=== PATIENT | female | born 1965 | race Caucasian/White ===

== ENCOUNTER 2020-10-16 16:38 | Emergency (ER) | payer BC, SELFPAY ==
--- NOTE | 2020-10-16 16:51 | HMH.EDUTC ---
[facility] [place] Disposition Clinical Impression: Exposure to COVID-19 virus Disposition: Home, Self-Care Condition on Discharge: Good Instructions: Preventing the Spread of Coronavirus Discharge Instructions Additional Instructions: Drink plenty of fluids. Take tylenol for pain or fever. Return if you begin to have difficulty breathing. Follow up with your regular doctor. GO TO THE ER FOR ANY WORSENING SYMPTOMS Referrals: Jeffrey Haney MD [Primary Care Provider] - Forms: Work/School Release Time of Disposition: 16:53 Medical Decision Making - Medical Records Medical records reviewed: No: I reviewed the patient's medical records. - Davis Inquiry Pt receiving controlled substance: No Vital Signs: 10/16/20 17:05 10/16/20 17:09 Temperature 98.7 F 98.5 F Temperature Source Oral Oral Pulse Rate 110 H Respiratory Rate 16 16 Blood Pressure 141/92 H 02 Sat by Pulse Oximetry 98 Oxygen Delivery Method Room Air Room Air [facility] [place] HPI - General Stated complaint: Covid Test Time Seen by Provider: 10/16/20 16:51 - History of Present Illness Provider Complaint: She is here to have a covid test. She denies any symptoms at this time. [facility] History - Hepatitis A Screen Attestation statement:: This patient has been screened for Hepatitis A risk factors. I have reviewed the patient's past medical history: Yes ROS Obtained: Yes All systems reviewed & no additional complaints - Constitutional Constitutional: Reports system reviewed and no additional complaints, except as docu - Eyes Eyes: Reports system reviewed and no additional complaints, except as docu - ENT Ears, Nose, Mouth, and Throat: Reports system reviewed and no additional complaints, except as docu - Cardiovascular Cardiovascular: Reports system reviewed and no additional complaints, except as docu - Respiratory Respiratory: Reports system reviewed and no additional complaints, except as docu - Gastrointestinal Gastrointestingal: Reports: system reviewed and no additional complaints, except as docu Physical Exam - General General appearance: alert, in no apparent distress - Head Head exam: atraumatic, normocephalic, normal inspection - Eye Eye exam: Present: normal appearance, PERRL, EOMI - ENT ENT exam: Present: normal exam, normal oropharynx, mucous membranes moist, TM's normal bilaterally, normal external ear exam - Neck Neck exam: Present: normal inspection, full ROM, trachea midline. Absent: meningismus, lymphadenopathy - Chest Chest inspection: Present: normal inspection, symmetric chest wall rise. Absent: tenderness - Respiratory Respiratory exam: Present: normal lung sounds bilaterally. Absent: respiratory distress - Cardiovascular Cardiovascular exam: Present: regular rate, normal rhythm. Absent: JVD - Abdominal Exam Abdominal exam: Present: soft, normal bowel sounds. Absent: distention, tenderness, guarding - Extremities Exam Extremities exam: Present: normal inspection, full ROM, normal capillary refill. Absent: calf tenderness - Back Exam Back exam: Present: normal inspection. Absent: tenderness - Neurological Exam Neurological exam: Present: alert, oriented X3 - Psychiatric Psychiatric exam: Present: normal affect, normal mood - Skin Skin exam: Present: warm, dry, intact, normal color - Lymphatic Lymphatic Findings: no adenopathy
[2020-10-16 17:05] VITALS: RESP 16; TEMP 37.1; O2SAT 98; BMI 29.0
[2020-10-16 17:09] VITALS: BP 141/92; PULSE 110; RESP 16; TEMP 36.9; O2SAT 97
== END 2020-10-16 17:10 | disposition home or self-care (01) ==
PROVIDERS: Emergency Provider Nurse Practitioner Family; PCP Internal Medicine Adolescent Medicine
DX: Z20.822 Contact with and (suspected) exposure to COVID-19 (principal)
CPT/HCPCS: 99202; G0463; U0003

== ENCOUNTER 2020-10-24 15:31 | Emergency (ER) | payer BC, SELFPAY ==
[2020-10-24 15:51] VITALS: RESP 16; TEMP 36.7; O2SAT 97; BMI 29.0
--- NOTE | 2020-10-24 16:03 | HMH.EDUTC ---
[facility] [place] Clinical Impression: Exposure to COVID-19 virus Disposition: Home, Self-Care Condition on Discharge: Good Instructions: Preventing the Spread of Coronavirus Discharge Instructions Additional Instructions: Drink plenty of fluids. Take tylenol for pain or fever. Return if you begin to have difficulty breathing. Follow up with your regular doctor. GO TO THE ER FOR ANY WORSENING SYMPTOMS Referrals: Jeffrey Haney MD [Primary Care Provider] - Time of Disposition: 16:06 Medical Decision Making - Medical Records Medical records reviewed: No: I reviewed the patient's medical records. - Davis Inquiry Pt receiving controlled substance: No Vital Signs: 10/24/20 15:51 10/24/20 16:11 Temperature 98.0 F 98.1 F Temperature Source Oral Oral Pulse Rate 88 Respiratory Rate 16 16 Blood Pressure 128/90 02 Sat by Pulse Oximetry 97 Oxygen Delivery Method Room Air Room Air [facility] [place] HPI - General Stated complaint: covid test Time Seen by Provider: 10/24/20 16:04 Mode of Arrival: Ambulatory Source of Information: Patient Limitations: No Limitations Description of Symptoms (Recalled from Triage Doc. by RN): covid test-- no s/s HEENT Symptoms (Recalled from RN notes): No Resp Symptoms (Recalled from RN notes): No Skin Symptoms (Recalled from RN notes): No MS Symptoms (Recalled from RN notes): No Functional Status (Recalled from RN notes): na - History of Present Illness Provider Complaint: Her daughter was diagnosed with covid-19 last week. Her daughter lives with her. She denies any symptoms. She needs a negative test to be allowed to go back to work. - Worker's Comp Is this a Worker's Comp case?: No [facility] History - Hepatitis A Screen Drug use history?: No High risk sexual behaviors?: No History of sexually transmitted infection?: No Currently employed?: No Childcare worker?: No Do you have indoor plumbing?: Yes Do you have electricity?: Yes Attestation statement:: This patient has been screened for Hepatitis A risk factors. I have reviewed the patient's past medical history: Yes ROS Obtained: Yes All systems reviewed & no additional complaints - Constitutional Constitutional: Reports system reviewed and no additional complaints, except as docu - Eyes Eyes: Reports system reviewed and no additional complaints, except as docu - ENT Ears, Nose, Mouth, and Throat: Reports system reviewed and no additional complaints, except as docu - Cardiovascular Cardiovascular: Reports system reviewed and no additional complaints, except as docu - Respiratory Respiratory: Reports system reviewed and no additional complaints, except as docu - Gastrointestinal Gastrointestingal: Reports: system reviewed and no additional complaints, except as docu Physical Exam - General General appearance: alert, in no apparent distress - Head Head exam: atraumatic, normocephalic, normal inspection - Eye Eye exam: Present: normal appearance, PERRL, EOMI - ENT ENT exam: Present: normal exam, normal oropharynx, mucous membranes moist, TM's normal bilaterally, normal external ear exam - Neck Neck exam: Present: normal inspection, full ROM, trachea midline. Absent: meningismus, lymphadenopathy - Chest Chest inspection: Present: normal inspection, symmetric chest wall rise. Absent: tenderness - Respiratory Respiratory exam: Present: normal lung sounds bilaterally. Absent: respiratory distress - Cardiovascular Cardiovascular exam: Present: regular rate, normal rhythm. Absent: JVD - Abdominal Exam Abdominal exam: Present: soft, normal bowel sounds. Absent: distention, tenderness, guarding - Extremities Exam Extremities exam: Present: normal inspection, full ROM, normal capillary refill. Absent: calf tenderness - Back Exam Back exam: Present: normal inspection. Absent: tenderness - Neurological Exam Neurological exam: Present: alert, oriented X3 - Psychiatric Psychia
[2020-10-24 16:11] VITALS: BP 128/90; PULSE 88; RESP 16; TEMP 36.7; O2SAT 99
== END 2020-10-24 16:13 | disposition home or self-care (01) ==
PROVIDERS: Emergency Provider Nurse Practitioner Family; PCP Internal Medicine Adolescent Medicine
DX: Z20.822 Contact with and (suspected) exposure to COVID-19 (principal)
CPT/HCPCS: 99202; G0463; U0003

== ENCOUNTER 2021-03-01 09:10 | Emergency (ER) | payer BC, SELFPAY ==
[2021-03-01 09:57] VITALS: BP 146/98; PULSE 74; RESP 18; TEMP 36.6; O2SAT 98; BMI 31.7
--- NOTE | 2021-03-01 10:03 | HMH.EDUTC ---
[facility] [place]ression: Encounter for laboratory testing for COVID-19 virus Disposition: Home, Self-Care Condition on Discharge: Good Instructions: DI for COVID-19 (Suspected or Confirmed ), Coronavirus Disease 2019, Preventing the Spread of Coronavirus Discharge Instructions Additional Instructions: *Monitor Temp, Over the counter Motrin or Tylenol as directed/as needed Tylenol every 4 hours and Motrin every 6 hours (as long as your family doctor has told you that you can take it) for fever or pain. and straight to ER if unable to lower temp less than 101.0 after medication given Follow up IMMEDIATELY for new or worsening symptoms or no Noticeable improvement over the next 48-72 hours. 911 for difficulty breathing or swallowing You were tested for today for COVID19 your test result should be back in the next 24-48 hours, you may call to the [facility] to see if your test results are back in the next 48 hours [phone] [facility] hours are 9am-9pm You was given a handout with instructions for Self Quarantine and Self isolation for while you wait on test results and what to do if they are positive If you are positive the Health Dept will be contacting you also Make sure to take your Vitamins Vit. C Vit D and Zinc if you can take them Referrals: Jeffrey Haney MD [Primary Care Provider] - As needed Forms: Work/School Release Time of Disposition: 10:06 Medical Decision Making - Davis Inquiry Pt receiving controlled substance: No Davis was queried for this patient: No Vital Signs: 03/01/21 09:57 Temperature 97.8 F Temperature Source Oral Pulse Rate [Left] 74 Respiratory Rate 18 Blood Pressure [Right Arm] 146/98 H Blood Pressure Mean [Right Arm] 114 02 Sat by Pulse Oximetry 98 Orders (Tests/Meds): ORDERS Category Date Time Status Covid-19 Nasal PCR ([facility]) Routine Lab 03/01/21 09:42 [place] [facility] [place] - General Stated complaint: covid test Time Seen by Provider: 03/01/21 10:03 Mode of Arrival: Ambulatory Source of Information: Patient Limitations: No Limitations Description of Symptoms (Recalled from Triage Doc. by RN): pt requests a covid test. pt is asymptomatic. no exposure. HEENT Symptoms (Recalled from RN notes): No Resp Symptoms (Recalled from RN notes): No Skin Symptoms (Recalled from RN notes): No MS Symptoms (Recalled from RN notes): No Functional Status (Recalled from RN notes): na - History of Present Illness Provider Complaint: Patient state that she hasnt been around anyone that she is aware of that tested positive for COVID States that her daughter is having some symptoms that is like COVID symptoms and has been exposed so she wanted to get tested because she is caring for her daughter - Related Data Allergies Allergy/AdvReac Type Severity Reaction Status Date / Time Penicillins Allergy Verified 03/01/21 10:00 - Worker's Comp Is this a Worker's Comp case?: No [facility] History - Hepatitis A Screen Drug use history?: No High risk sexual behaviors?: No History of sexually transmitted infection?: No Currently employed?: No Childcare worker?: No Do you have indoor plumbing?: Yes Do you have electricity?: Yes Attestation statement:: This patient has been screened for Hepatitis A risk factors. I have reviewed the patient's past medical history: Yes ROS Obtained: Yes All systems reviewed & no additional complaints, Yes Systems reviewed as appropriate & no additional complaints - Constitutional Constitutional: Reports system reviewed and no additional complaints, except as docu, Denies body ache, Denies chills, Denies fever(s) - ENT Ears, Nose, Mouth, and Throat: Reports system reviewed and no additional complaints, except as docu, Denies nasal congestion, Denies nasal discharge, Denies sore throat - Cardiovascular Cardiovascular: Reports system reviewed and no additional complaints, except as docu - Respiratory Respiratory: Reports system reviewed and no vivian
[2021-03-01 10:08] VITALS: BP 146/98; PULSE 74; RESP 18; TEMP 36.6
== END 2021-03-01 10:26 | disposition home or self-care (01) ==
PROVIDERS: Emergency Provider Nurse Practitioner; PCP Internal Medicine Adolescent Medicine
DX: Z20.822 Contact with and (suspected) exposure to COVID-19 (principal)
CPT/HCPCS: 99202; G0463; U0003

== ENCOUNTER → 2022-02-01 19:04 | Outpatient (CLI) | payer BC, SELFPAY | PROVIDERS: PCP Internal Medicine Adolescent Medicine; Visit Provider Internal Medicine Adolescent Medicine | DX: U07.1 COVID-19 (principal) | CPT/HCPCS: C9803; U0003; U0005 ==

== ENCOUNTER → 2022-02-02 06:20 | Outpatient (CLI) | payer BC, SELFPAY | PROVIDERS: PCP Internal Medicine Adolescent Medicine; Visit Provider Internal Medicine Adolescent Medicine | DX: U07.1 COVID-19 (principal) ==

== ENCOUNTER → 2023-01-03 08:03 | Outpatient (CLI) | payer BC, SELFPAY ==
--- NOTE | 2023-01-03 08:03 | MM_ITS ---
PROCEDURE INFORMATION: Exam: MG Bilateral Screening 3D Mammography Exam date and time: 01/03/2023 8:13 AM Age: 57 years old Clinical indication: Screening examination TECHNIQUE: Imaging protocol: Bilateral Screening tomosynthesis and 2D mammography including computer-aided detection (CAD) when performed. COMPARISON: No relevant prior studies available. FINDINGS: MAMMOGRAPHY: Breast composition: There are scattered areas of fibroglandular density. Mass: None. Architectural distortion: None. Calcifications: No suspicious calcifications. Asymmetric density: None. Skin thickening: None. Axillary adenopathy: None. IMPRESSION: No mammographic evidence of malignancy. Annual screening is recommended unless otherwise clinically indicated. ASSESSMENT: BI-RADS Category 1: Negative
== END ==
PROVIDERS: PCP Nurse Practitioner Family; Visit Provider Nurse Practitioner Family
DX: Z12.31 Encounter for screening mammogram for malignant neoplasm of breast (principal)
CPT/HCPCS: 77063; 77067

== ENCOUNTER → 2023-02-19 06:55 | Outpatient (CLI) | payer BC, SELFPAY ==
[2023-02-19 07:17] LABS: Basophils # 0.1 K/mm3 (0-0.2); Basophils % 0.6 % (0.1-2.0); Eosinophils # 0.3 K/mm3 (0.0-0.4); Eosinophils % 3.6 % (0.1-12.0); Hematocrit 46.5 % (37.0-47.0); Hemoglobin 15.6 g/dL (12.2-16.2); Lymphocytes # 2.5 K/mm3 (0.7-4.5); Lymphocytes % 32.8 % (10-50); Mean Corpuscular HGB Conc 33.5 g/dL (31.8-35.4); Mean Corpuscular Hemoglobin 31.1 pg (27.0-31.2); Mean Corpuscular Volume 93.1 fl (81-99); Monocytes # 0.4 K/mm3 (0.1-1.0); Monocytes % 5.5 % (1.7-9.3); Neutrophils # 4.4 K/mm3 (1.8-7.8); Neutrophils % 57.5 % (37.0-80.0); Platelet Count 181 K/mm3 (142-424); Red Cell Distribution Width 12.7 % (11.5-17.5); White Blood Count 7.7 K/mm3 (4.8-10.8)
[2023-02-19 07:45] LABS: Alanine Aminotransferase 72 U/L (12-78); Albumin Level 4.3 g/dl (3.5-5.0); Albumin/Globulin Ratio 1.5 (1.1-1.8); Alkaline Phosphatase 79 U/L (38-126); Aspartate Amino Transferase 55 U/L (14-36); Bilirubin,Total 0.7 mg/dl (0.2-1.3); Blood Urea Nitrogen 9 mg/dl (7-17); Calcium 9.1 mg/dl (8.4-10.2); Carbon Dioxide 33 mmol/L (22.0-30.0); Chloride 101 mmol/L (98-107); Estimated Glomerular Filt Rate 127 ml/min (>60); GFR (African American) 154 ML/MIN (>60); Globulin 2.9 g/dL (1.3-3.2); Glucose 167 mg/dl (74-100); Sodium 140 mmol/L (136-145); Total Protein,Serum 7.2 g/dl (6.3-8.2)
[2023-02-19 08:02] LABS: HCG,Quantitative 5 mIU/ml (0-5.42)
[2023-02-19 12:00] LABS: Hemoglobin A1C 10.2 % (4.0-6.0)
== END ==
PROVIDERS: Family Medicine; PCP Nurse Practitioner Family; Visit Provider Obstetrics & Gynecology
DX: H68.001 Unspecified Eustachian salpingitis, right ear (principal); N95.1 Menopausal and female climacteric states; R73.09 Other abnormal glucose
CPT/HCPCS: 36415; 80053; 83036; 84702; 85025

== ENCOUNTER → 2023-02-20 12:35 | Outpatient (CLI) | payer BC, SELFPAY ==
--- NOTE | 2023-02-20 12:35 | CT_ITS ---
FINAL REPORT TECHNIQUE: Thin section axial CT images with coronal and sagittal reformats were performed through the neck. This study was performed with techniques to keep radiation doses as low as reasonably achievable (ALARA). Individualized dose reduction techniques using automated exposure control or adjustment of mA and/or kV according to the patient''s size were employed. CLINICAL HISTORY: hoarseness COMPARISON: None FINDINGS: There are small calcifications in the tonsillar pillars, likely postinflammatory. No adenopathy or mass lesion is present . Salivary glands are normal. Larynx is unremarkable. Thyroid gland is unremarkable. There are multiple small central disc protrusions at various levels in the cervical spine. IMPRESSION: No acute process. Multiple small central disc protrusions at various levels in the cervical spine. If clinically indicated a C-spine MRI might be helpful for further evaluation. Reviewed, Interpreted and Dictated by Ganesh Martin III, MD Transcribed by Analia Miranda Authenticated and [facility]
== END ==
PROVIDERS: PCP Nurse Practitioner Family; Visit Provider Nurse Practitioner
DX: R49.0 Dysphonia (principal)
CPT/HCPCS: 70490

== ENCOUNTER → 2023-02-25 16:53 | Outpatient (CLI) | payer BC, SELFPAY ==
[2023-02-25 16:57] LABS: Basophils # 0.1 K/mm3 (0-0.2); Basophils % 0.7 % (0.1-2.0); Eosinophils # 0.2 K/mm3 (0.0-0.4); Eosinophils % 2.1 % (0.1-12.0); Hematocrit 45.3 % (37.0-47.0); Hemoglobin 15.6 g/dL (12.2-16.2); Lymphocytes # 2.5 K/mm3 (0.7-4.5); Lymphocytes % 28.4 % (10-50); Mean Corpuscular HGB Conc 34.5 g/dL (31.8-35.4); Mean Corpuscular Hemoglobin 32.5 pg (27.0-31.2); Mean Corpuscular Volume 94.2 fl (81-99); Mean Platelet Volume 11.1 fl (7.4-10.4); Monocytes # 0.4 K/mm3 (0.1-1.0); Neutrophils # 5.7 K/mm3 (1.8-7.8); Neutrophils % 63.8 % (37.0-80.0); Platelet Count 191 K/mm3 (142-424); Red Blood Count 4.81 M/mm3 (4.20-5.40); Red Cell Distribution Width 12.8 % (11.5-17.5); White Blood Count 8.9 K/mm3 (4.8-10.8)
[2023-02-25 16:59] LABS: Alanine Aminotransferase 70 U/L (12-78); Albumin Level 4.4 g/dl (3.5-5.0); Albumin/Globulin Ratio 1.4 (1.1-1.8); Alkaline Phosphatase 86 U/L (38-126); Aspartate Amino Transferase 48 U/L (14-36); Bilirubin,Total 0.4 mg/dl (0.2-1.3); Blood Urea Nitrogen 9 mg/dl (7-17); Calcium 9.5 mg/dl (8.4-10.2); Carbon Dioxide 30 mmol/L (22.0-30.0); Chloride 100 mmol/L (98-107); Estimated Glomerular Filt Rate 127 ml/min (>60); GFR (African American) 154 ML/MIN (>60); Globulin 3.1 g/dL (1.3-3.2); Glucose 212 mg/dl (74-100); Sodium 139 mmol/L (136-145); Total Protein,Serum 7.5 g/dl (6.3-8.2)
[2023-02-25 17:15] LABS: HCG,Quantitative 4 mIU/ml (0-5.42)
== END ==
PROVIDERS: PCP Family Medicine; Visit Provider Family Medicine
DX: Z01.818 Encounter for other preprocedural examination (principal)
CPT/HCPCS: 80053; 84702; 85025

== ENCOUNTER 2023-02-27 06:01 | Day surgery (SDC) | payer BC, SELFPAY ==
[2023-02-25 08:45] VITALS: BMI 28.8
[2023-02-27] VITALS (10 sets, daily range): BP systolic 129–159; BP diastolic 75–89; PULSE 64–85; RESP 12–18; TEMP 36.1–36.4; O2SAT 92–97
[2023-02-27 06:30] LABS: POC Glucose,Bedside 224 (70-110)
[2023-02-27 06:36] LABS: Urine Pregnancy, HCG Qual. Negative (Negative)
--- NOTE | 2023-02-27 06:48 | EXP.ANES.CKL ---
[facility] Disclaimer: The information contained in this section may have been updated after the patient was seen, as this information can be updated by other users. Medical History Constipation Decreased libido Diabetes mellitus, type 2 Heart attack Hoarseness Hyperlipidemia Hypertension Inflammation of right eustachian tube Menopausal symptoms Presence of intrauterine contraceptive device COCO (stress urinary incontinence, female) Surgical History H/O heart artery stent Family History (Updated 02/27/23 @ 06:37 by Lisa Laws RN) Mother Diabetes Hyperlipidemia Father Cancer Other Hypertension Social History (Updated 02/27/23 @ 06:38 by Lisa Laws RN) Smoking Status: Current every day smoker (1/2 ppd ) tobacco type: cigarettes alcohol intake: never substance use type: denies use current occupational status: employed Travel in the last 8 weeks: None household members: family housing: house [facility] Anesthesia Checklist Patient Identification Patient Identification: Arm Band and Verbal (Name & ) Structural Data Admitted From: Home Planned Operative Procedure/s: D&C hysteroscopy Consent for Planned Operative Procedure(s) Verified: Yes Verified Documents: Surgical Consent NPO Status Verified Time NPO: 00:00 Chart Verification Results Verified: H & H Additional verifications Fingerstick Blood Glucose: 224 Anesthesia Reactions: No Hx Blood Transfusions: No Blood Transfusion Reaction: No Airway Assessment Mallampati Score:: Class III C-Spine Mobility Assessed: Yes TMJ Mobility Assessed: Yes Dentition: Partials Neurological Assessment Level of Consciousness: Awake and Alert Psychosocial Assessment Concerns Regarding Surgery: anxious Anesthesia Plan Anesthesia Risk discussed: Yes ASA Class: III Anesthesia Type: General
--- NOTE | 2023-02-27 08:13 | P.PNANES_ITS ---
[facility] Anesthesia Record Part I Anesthesia Record I Intake, IV Amount: 900 Hydration: Adequate Estimated blood loss (mL): 0 Urine output (mL): 0 Blood Products used (#): none Blood Pressure: 159/89 SaO2: 94 Pulse Rate: 85 Airway Patency: Patent Respiratory Rate: 12 Temperature: 97.1 F Patient is:: Awake and Stable Stable to PACU at:: 08:08
[2023-02-27 08:19] LABS: POC Glucose,Bedside 193 (70-110)
--- NOTE | 2023-02-27 09:11 | EXP.OP.NOTE ---
Date of procedure: 02/27/23 Pre-op Diagnosis:: 1. Retained portion of IUD within the uterus Post-op Diagnosis:: 1. Retained portion of IUD within the uterus Procedure performed:: 1. Hysteroscopy, dilatation, removal of portion of IUD 2. Endometrial curettage Surgeon:: Jenny Garcia DO Customs Appraiser(s):: N/a SONAR WATCHSTANDER:: Other Anesthesia: GETA Estimated blood loss (mL): 0 Clinical Note:: Ms Lenka Zimmerman presents to [facility] for scheduled procedure. She had an IUD inserted in 2006. Attempted to remove IUD in the office on 01/23/23. Stalk and strings removed but T portion of IUD retained in uterus. Operative findings:: 1. On bimanual exam, uterus anteverted, normal size and shape, no adnexal masses palpated 2. On hysteroscopic exam, of IUD noted in cavity partially imbedded at fundus; normal appearing atrophic endometrium. No masses, polyps or lesions. Bilateral tubal ostia visualized Operative note:: Risks, benefits and alternatives were discussed with the patient. Risks include but are not limited to bleeding, infection, uterine perforation and VTE. Patient voiced understanding and agreed to proceed. She was wheeled back to the operating room and placed under general anesthesia without difficulty. She was placed in dorsal lithotomy position and prepped and draped in the normal sterile fashion. A bimanual exam was performed. A weighted Auvard was placed in the vaginal vault. Single tooth tenaculum was placed on anterior lip of the cervix. Uterus sounded to 7. Sequential Tobin dilators were used to dilate the cervical os. Hysteroscope was tested inserted through the cervix without difficulty. Portion of IUD identified. Graspers were inserted through the hysteroscope and portion of IUD was grasped and removed under direct visualization. Endometrial cavity was evaluated. See findings above. Pictures were taken. Hysteroscope was removed. Medium size sharp curette was inserted through the cervix into the uterine cavity. The endometrial cavity was curetted with a systematic [id number] movement of the curette so that all possible endometrium was sampled. Endometrial curettings will be sent to pathology for review. Instruments were removed from the vagina. Tenaculum site was noted to oozing. Silver nitrate stick x 1 was used on tenaculum site. Hemostasis was noted. Patient was awaken from anesthesia without difficulty. She was transported to recovery room in stable condition. Patient will be discharged home when awake and ambulating. She was given postop instructions as well as instructions to follow-up in the office in 2 weeks at which time pathology will be reviewed. Condition: stable Disposition: same day Specimens:: 1. Endometrial curettings Complications:: None
== END 2023-02-27 09:04 | disposition home or self-care (01) ==
PROVIDERS: PCP Nurse Practitioner Family; Visit Provider Obstetrics & Gynecology
PROC: 0UDB8ZZ Extraction of Endometrium, Via Natural or Artificial Opening Endoscopic (ICD-10-PCS; CPT 58558; principal; 2023-02-27 07:30)
DX: Z30.432 Encounter for removal of intrauterine contraceptive device (principal); N85.4 Malposition of uterus; T83.39XA Other mechanical complication of intrauterine contraceptive device, initial encounter; E11.9 Type 2 diabetes mellitus without complications
CPT/HCPCS: 58562; 81025; 82962; J2405

== ENCOUNTER → 2023-06-03 08:06 | Outpatient (CLI) | payer BC, SELFPAY ==
[2023-06-03 16:34] LABS: Hemoglobin A1C 8.2 % (4.0-6.0)
== END ==
PROVIDERS: PCP Family Medicine; Visit Provider Family Medicine
DX: E11.9 Type 2 diabetes mellitus without complications (principal); Z79.84 Long term (current) use of oral hypoglycemic drugs
CPT/HCPCS: 83036

== ENCOUNTER 2023-09-12 21:59 | Outpatient (CLI) | payer BC, SELFPAY ==
[2023-09-12 16:42] LABS: Hemoglobin A1C 9.7 % (4.0-6.0)
== END 2023-09-12 23:59 ==
LOC: LAB.DROPOF 21:59
PROVIDERS: PCP Family Medicine; Visit Provider Family Medicine
DX: E11.9 Type 2 diabetes mellitus without complications (principal); Z79.84 Long term (current) use of oral hypoglycemic drugs
CPT/HCPCS: 83036

== ENCOUNTER 2023-12-11 09:35 | Outpatient (CLI) | payer BC, SELFPAY ==
[2023-12-11 18:21] LABS: Hemoglobin A1C 10.3 % (4.0-6.0)
== END 2023-12-11 23:59 | disposition home or self-care (01) ==
LOC: LAB.DROPOF 12-12 09:35
PROVIDERS: PCP Family Medicine; Visit Provider Family Medicine
DX: E11.9 Type 2 diabetes mellitus without complications (principal); Z79.84 Long term (current) use of oral hypoglycemic drugs
CPT/HCPCS: 83036

== ENCOUNTER 2024-02-27 09:44 | Outpatient (CLI) | payer BC, SELFPAY ==
--- NOTE | 2024-02-27 09:44 | MM_ITS ---
PROCEDURE INFORMATION: Exam: MG Bilateral Screening 3D Mammography Exam date and time: 02/27/2024 9:41 AM Age: 58 years old Clinical indication: Screening exam TECHNIQUE: Imaging protocol: Bilateral Screening tomosynthesis and 2D mammography including computer-aided detection (CAD) when performed. COMPARISON: MG MM DIG SCREENING MAMM BI W/CAD 01/03/2023 8:13 AM FINDINGS: MAMMOGRAPHY: Breast composition: There are scattered areas of fibroglandular density. Mass: No suspicious masses. Architectural distortion: None. Calcifications: No suspicious calcifications. Asymmetric density: None. Skin thickening: None. Axillary adenopathy: None. IMPRESSION: No mammographic evidence of malignancy. Annual screening is recommended unless otherwise clinically indicated. ASSESSMENT: BI-RADS Category 1: Negative
== END 2024-02-27 23:59 | disposition home or self-care (01) ==
LOC: RAD 09:44
PROVIDERS: PCP Family Medicine; Visit Provider Family Medicine
DX: Z12.39 Encounter for other screening for malignant neoplasm of breast (principal)
CPT/HCPCS: 77063; 77067

== ENCOUNTER 2024-04-27 08:42 | Emergency (ER) | payer BC, SELFPAY ==
[2024-04-27 08:44] VITALS: BP 210/120; PULSE 92; RESP 18; TEMP 36.6; O2SAT 96; BMI 28.5
[2024-04-27 08:47] VITALS: BP 210/120; PULSE 78; O2SAT 98
[2024-04-27 09:01] VITALS: BP 187/95; PULSE 87; O2SAT 96
--- NOTE | 2024-04-27 09:23 | ED_ITS ---
Discharge Plan Disposition Patient Disposition: Home, Self-Care Prescriptions Prescriptions: New lidocaine 4 % adhesive patch,medicated 1 patch topical DAILY Qty: 5 0RF Rx Instructions: may leave on for up to 12 hrs ibuprofen 800 mg tablet 800 mg PO TID PRN (Reason: pain) 7 Days Qty: 20 0RF cyclobenzaprine 5 mg tablet 5 mg PO TID PRN (Reason: muscle spasm) 5 Days Qty: 15 0RF No Action metoprolol tartrate 25 mg tablet 25 mg PO BID simvastatin 40 mg tablet 40 mg PO HS aspirin 81 mg tablet,delayed release (DR/EC) 81 mg PO DAILY albuterol sulfate 90 mcg/actuation HFA aerosol inhaler 2 inh inhalation QID PRN (Reason: shortness of breath or wheezing) Qty: 6.7 2RF cetirizine 10 mg tablet 10 mg PO DAILY PRN (Reason: allergy symptoms) Qty: 90 3RF lisinopril-hydrochlorothiazide 20-12.5 mg tablet 1 tab PO DAILY Patient Comments: TAKE 1 TABLET EVERY DAY lysine 500 mg tablet 500 mg PO DAILY B-complex with vitamin C Tablet 1 tab PO DAILY pioglitazone 15 mg tablet 15 mg PO DAILY Qty: 90 2RF levocetirizine [Xyzal] 5 mg tablet 5 mg PO DAILY Qty: 90 3RF azelastine 137 mcg (0.1 %) spray,non-aerosol 2 spray intranasal BID Qty: 30 3RF Rx Instructions: administer into each nostril omeprazole 20 mg capsule,delayed release(DR/EC) See Rx Instructions .ROUTE .COMPLEX Qty: 90 3RF Dose Instruction: TAKE 1 CAPSULE BY MOUTH EVERY DAY FOR ACID REFLUX Rx Instructions: TAKE 1 CAPSULE BY MOUTH EVERY DAY FOR ACID REFLUX famotidine 20 mg tablet See Rx Instructions .ROUTE .COMPLEX Qty: 180 2RF Dose Instruction: TAKE 2 TABLETS BY MOUTH AT BEDTIME NIGHTLY FOR GERD Rx Instructions: TAKE 2 TABLETS BY MOUTH AT BEDTIME NIGHTLY FOR GERD metformin 500 mg tablet extended release 24 hr 1,000 mg PO BID 90 Days Qty: 360 1RF bupropion HCl 300 mg tablet extended release 24 hr See Rx Instructions .ROUTE .COMPLEX Qty: 45 0RF Dose Instruction: TAKE 1 TABLET BY MOUTH EVERY OTHER DAY Rx Instructions: TAKE 1 TABLET BY MOUTH EVERY OTHER DAY terbinafine HCl 250 mg tablet 250 mg PO DAILY 30 Days Qty: 30 2RF Referrals Follow up/Referrals: Jostin Malin MD [Primary Care Provider] - See instructions Activity Restrictions/Add. Instructions Additional Instructions/Restrictions: Given the fact that you have had symptoms for 1 month I recommend you follow-up with a primary care doctor and/or with a spine surgeon for consideration of an outpatient MRI. Return emergently if you have any of the following symptoms: Lower extremity paralysis or significant weakness, numbness between your legs, urine incontinence or retention, bowel incontinence high fevers or other concerns. Clinical Impressions Clinical Impression: Sciatica Print Language Print Language: Lao Discharge ED Provider: Jean Mirza General Adult HPI General Chief complaint: PAIN Stated complaint: Pain from L hip down L leg Time Seen by Provider: 04/27/24 09:02 Mode of Arrival: Ambulatory Source of Information: Patient Limitations: No Limitations Description of Symptoms (Recalled from ER Triage Doc. by RN): pt presents to the er for L lower back pain that shoots down her L leg and top of her foot, states it has been going on for awhile but has been increasingly worse since saturday, rates pain constant, shooting, throbbing, and 10/10, pain is better when walking and worse when sitting History of Present Illness HPI narrative: Patient is a 58-year-old female presents today with left lateral lumbosacral pain that is radiating down the posterior aspect of her left leg. Denies any weakness denies any saddle anesthesia urinary bowel incontinence urinary retention fevers history of cancer etc. No trauma. Pain is severe. Tried [id number] medications without improvement. Related Data Home Medications ?Medication ?Instructions ?Recorded ?Confirmed aspirin 81 mg tablet,delayed 81 mg PO DAILY Blood Thinner 02/01/22 03/17/24 release metoprolol tartrate 25 mg tablet 25 mg PO BID bp 02/01/22 03/17/24 simvastatin 40 mg tablet 40 mg PO HS Cholesterol 02/01/22 03/17/24 lisinopril 20 1 tab PO DAILY bp 06/08/22 03/17/24 mg-hydrochlorothiazide 12.5 mg tablet lysine 500 mg tablet 500 mg PO DAILY Supplement 06/08/22 03/17/24 B-complex with vitamin C 1 tab PO DAILY Supplement 02/20/23 03/17/24 Previous Rx's ?Medication ?Instructions ?Recorded albuterol sulfate 90 mcg/actuation 2 inh inhalation QID PRN shortness 01/02/24 aerosol inhaler of breath or wheezing #6.7 grams cetirizine 10 mg tablet 10 mg PO DAILY PRN allergy 01/13/24 symptoms #90 tabs azelastine 137 mcg (0.1 %) nasal 2 spray intranasal BID #30 mL 01/21/24 spray levocetirizine 5 mg tablet (Xyzal) 5 mg PO DAILY #90 tabs 01/21/24 pioglitazone 15 mg tablet 15 mg PO DAILY #90 tabs 03/17/24 famotidine 20 mg tablet See Rx Instructions .Route 03/24/24 .COMPLEX #180 tabs omeprazole 20 mg capsule,delayed See Rx Instructions .Route 03/24/24 release .COMPLEX #90 caps metformin 500 mg tablet,extended 1,000 mg (2 x 500 mg) PO BID 90 03/30/24 release 24 hr days #360 tabs bupropion HCl 300 mg 24 hr tablet, See Rx Instructions .Route 04/01/24 extended release .COMPLEX #45 tabs terbinafine HCl 250 mg tablet 250 mg PO DAILY 30 days #30 tabs 04/13/24 cyclobenzaprine 5 mg tablet 5 mg PO TID PRN muscle spasm 5 04/27/24 days #15 tabs ibuprofen 800 mg tablet 800 mg PO TID PRN pain 7 days #20 04/27/24 tabs lidocaine 4 % topical patch 1 patch topical DAILY #5 ea 04/27/24 Allergies Allergy/AdvReac Type Severity Reaction Status Date / Time amoxicillin [From Amoxil] Allergy Swelling Verified 03/17/24 09:05 of the Eye Penicillins Allergy Verified 03/17/24 09:05 [facility] Disclaimer: The information contained in this section may have been updated after the vu nt was seen, as this information can be updated by other users. Medical History Chronic eustachian tube dysfunction Congestion of left ear Nasal congestion Normal hysteroscopy Constipation Diabetes mellitus, type 2 Inflammation of right eustachian tube Hoarseness COCO (stress urinary incontinence, female) Menopausal symptoms Presence of intrauterine contraceptive device Decreased libido Heart attack Hyperlipidemia Hypertension Surgical History H/O heart artery stent Family History Mother Diabetes Hyperlipidemia Father Cancer Other Hypertension Social History Smoking Status: Current every day smoker tobacco type: cigarettes alcohol intake: never substance use type: denies use current occupational status: employed Travel in the last 8 weeks: None household members: family housing: house Other Medical History Have you received the Pneumonia Vaccine: Yes ROS Obtained: Yes All systems reviewed & no additional complaints except as documented Physical Exam General General appearance: alert and in no apparent distress Respiratory Respiratory exam: Present normal lung sounds bilaterally Cardiovascular Cardiovascular exam: Present regular rate Back Exam Back exam: Absent tenderness (No midline tenderness she has normal flexion extension throughout the entire left lower extremity normal sensation normal pulses) Neurological Exam Neurological exam: Present alert and oriented X3 Medical Decision Making Medical Records Screening: Per USPSTF and CDC recommendations, given the prevalence of disease in our region, it is our hospital?s policy to screen for HIV and viral Hepatitis for all patients aged 18 and over and those with ongoing risk factors. [place] Inquiry Pt receiving controlled substance: No Vital Signs: 04/27/24 08:44 04/27/24 08:47 04/27/24 09:01 Temperature 97.9 F Temperature Source Oral Pulse Rate 78 87 Pulse Rate [Left Radial] 92 H Respiratory Rate 18 Blood Pressure 210/120 H 187/95 H Blood Pressure [Right Arm] 210/120 H Blood Pressure Mean 147 147 Blood Pressure Mean [Right Arm] 150 Blood Pressure Source [Right Arm] Automatic Cuff Blood Pressure Position [Right Arm] Sitting 02 Sat by Pulse Oximetry 96 98 96 Oxygen Delivery Method Room Air Orders (Tests/Meds): ED MEDICATIONS Discontinued Medications Generic Name Dose Route Start Last Admin Trade Name Freq PRN Reason Stop Dose Admin Dexamethasone Sodium Phosphate 10 mg 04/27/24 09:20 04/27/24 09:28 Dexamethasone 4mg/Ml 1ml Vial IM 04/27/24 09:21 10 mg ONCE ONE Administration Diazepam 5 mg 04/27/24 09:20 04/27/24 09:30 Diazepam 5mg Tablet PO 04/27/24 09:21 5 mg ONCE ONE Administration Ketorolac Tromethamine 30 mg 04/27/24 09:20 04/27/24 09:30 Ketorolac 30mg/Ml Vial IM 04/27/24 09:21 30 mg ONCE ONE Administration Lidocaine 1 each 04/27/24 09:20 04/27/24 09:28 Lidocaine 5% Transdermal Patch TP 04/27/24 09:21 1 each ONCE ONE Administration Medical Decision Narrative: 58-year-old with no red flags from history of physical standpoint presented today with symptoms that are consistent with sciatica most likely secondary to a herniated disc. Will treat symptomatically with dexamethasone Toradol and lidocaine patch. She is also very anxious in addition to muscle laxation we will give her a dose of Valium and reassess. Serial neurologic exams normal patient seen walking without significant difficulty in the emergency department symptoms improved with supportive care return precautions emphasized follow-up advised with a spine surgeon which she has continued symptoms she was discharged in stable and improved condition. Critical Care Critical Care Time Critical Care Time: No
[2024-04-27] MEDS: LIDOCAINE 5% TRANSDERMAL PATCH 1 EACH TP (09:28)
[2024-04-27] MEDS: DEXAMETHASONE 4MG/ML 1ML VIAL 10 MG IM (09:28)
[2024-04-27] MEDS: diazePAM 5MG TABLET 5 MG PO (09:30)
[2024-04-27] MEDS: KETOROLAC 30MG/ML VIAL 30 MG IM (09:30)
[2024-04-27 10:05] VITALS: BP 140/86; PULSE 83; RESP 16; TEMP 36.6; O2SAT 98
== END 2024-04-27 10:12 | disposition home or self-care (01) ==
PROVIDERS: Emergency Provider Student in an Organized Health Care Education/Training Program; PCP Family Medicine
DX: M54.30 Sciatica, unspecified side (principal); M54.50 Low back pain, unspecified; F17.210 Nicotine dependence, cigarettes, uncomplicated
CPT/HCPCS: 96372; 99283; J1100; J1885

== ENCOUNTER 2024-04-29 16:07 | Outpatient (CLI) | payer BC, SELFPAY ==
--- NOTE | 2024-04-29 16:10 | XR_ITS ---
PROCEDURE INFORMATION: Exam: XR Lumbosacral Spine Exam date and time: 04/29/2024 4:11 PM Age: 58 years old Clinical indication: Pain; Sciatica; Left; Additional info: Sciatica left side TECHNIQUE: Imaging protocol: Radiologic exam of the lumbosacral spine. Views: 2 or 3 views. COMPARISON: No relevant prior studies available. FINDINGS: Bones/joints: There is grade 1 retrolisthesis of L3 on L4 and L4 on L5. Otherwise the vertebral body heights and alignment are maintained. There is mild multilevel degenerative disc disease. Soft tissues: Unremarkable. Organs: Multiple gallstones versus right kidney stones measure up to 7 mm. IMPRESSION: Mild degenerative disc disease.
== END 2024-04-29 23:59 | disposition home or self-care (01) ==
LOC: RAD 16:07
PROVIDERS: PCP Family Medicine; Visit Provider Family Medicine
DX: M54.32 Sciatica, left side (principal)
CPT/HCPCS: 72100

== ENCOUNTER 2024-07-03 12:02 | Outpatient (CLI) | payer BC, SELFPAY ==
--- NOTE | 2024-07-03 12:36 | MR_ITS ---
FINAL REPORT CLINICAL HISTORY: persistent left sciatica FINDINGS: Multiplanar MR imaging of the lumbar spine was performed without contrast. On the sagittal T2-weighted images, abnormal decreased signal is seen from L3-4 through L5-S1 disc levels. The vertebrae are of normal height. The vertebral alignment is normal. L1-2: There is no significant canal stenosis or neural foraminal narrowing. L2-3: There is no significant canal stenosis or neural foraminal narrowing. L3-4: Moderate diffuse disc bulge. Left paracentral disc protrusion with moderate compromise of the left side of the spinal canal and moderate bilateral neuroforaminal narrowing. L4-5: Moderate diffuse disc bulge with moderate bilateral neuroforaminal narrowing. L5-S1: Moderate diffuse disc bulge. Left paracentral disc protrusion with moderate to high-grade compromise of the left lateral recess. IMPRESSION: Left paracentral disc protrusion at L3-4 with moderate compromise of the left side of the spinal canal. Left paracentral disc protrusion at L5-S1 with moderate to high-grade compromise of the left lateral recess. Reviewed, Interpreted and Dictated by Yovany Gregory MD Transcribed by Tiarra Madison Authenticated and [facility]
== END 2024-07-03 23:59 | disposition home or self-care (01) ==
LOC: RAD 12:03
PROVIDERS: PCP Family Medicine; Visit Provider Family Medicine
DX: M54.32 Sciatica, left side (principal); M54.50 Low back pain, unspecified
CPT/HCPCS: 72148

== ENCOUNTER 2024-07-07 10:00 | Outpatient (RCR) | payer BC, SELFPAY ==
--- NOTE | 2024-05-14 18:02 | HMH.PTOPEV ---
PT Outpatient Evaluation Rehab PT Outpatient Evaluation Start: 05/14/24 15:09 Freq: Status: Active Protocol: Document 05/14/24 15:09 [email or web address] (Rec: 05/14/24 16:01 [email or web address] [id number]) E-signed By Liam Bentley, PT Outpatient Therapy Subjective History Subjective History Pt. is a 58 year old Female who presents to [facility] in [place] for the initial evaluation this date(05/14/24) w/ c/o acute and constant L- sided lumbar and LLE P!, burning, and muscle spasms of insidious onset 1 month ago that has progressively been getting worse. Pt. reports having intermittent LB and RLE P! for a few months prior to current symptom complaint, however, pt. vocalized symptoms were manageable w/ OTC Ibuprofen. Pt. reports she did a lot of walking [place] a month ago that may have worsened symptoms. Pt. reports going to the [facility] on 04/27/24 secondary to c/o current symptoms where she got some symptom relief w/ injection and prescribed medicine. Pt. reports current symptoms worsen w/ prolonged sitting and driving/riding in a vehicle, bending over, and sleeping. Pt. reports having some symptom relief w/ prescribed medicine and getting up and walking around. Recent diagnostic imaging indicates mild degenerative changes per pt. report. Pt. reports symptoms get to a 10/ 10 @ worse in the ankle/foot/ toes. Pt. describes symptoms as a sharp muscle spasm. Pt. does not have a return date to the MD at this time. Current medications include Cyclobenzaprine, Metformin, Metoprolol, Baby Aspirin, Ibuprofen, Bupropion, and Simvastatin. PMH includes mild myocardial infarction, Hypertension, DM-II, S/P removal of IUD, and Cardiac Stent Placement. New diagnosis of cancer in past 12 No months? Chief Complaint Pain,Spasms,Stiff,Gives out/ Unstable,Paresthesia,Weakness Symptom Type Ache,Sharp,Stabbing,Burning, Numbness,Tingling,Shooting Symptoms Relieved By Rest/Positioning,Ice, Prescription Meds Symptoms Aggravated By Sitting,Bending/Stooping, Physical Activity,Twisting, Lifting Prior Functional Limitations None Current Functional Limitations Lifting,Housework,Driving, Sleeping,Sitting,Recreation Activity,Bending/Stooping Symptom Description Constant but Variable,Activity Dependent Level of pain today (0-10) 6 Pain scale - at its best (0-10) 5 Pain scale - at its worst (0-10) 10 Lumbopelvic Eval Posture Thoracic Spine Posture Standing Position Neutral Lumbar Spine Posture Standing Position Neutral Assistive device Assistive Devices None / NA Gait Observation General Gait Pattern Observation Antalgic Gait,Decrease Weight Bear (L),Decrease Stride Lngth (R) Palapation tenderness left lumbar spinal tenderness Yes: L4/L5/S1 paraspinal tenderness Yes buttock tenderness Yes Lumbar/Sacral Palpation Findings Tenderness Lumbar/Sacral Palpation Overall Comment grade 4 +TTP Accessory Movement L-spine Vertebrae Accessory Movements Central P/A [place],Left P/A that Elicit Symptoms Deshler L4 left L5 left S1 left Range of Motion Lumbar Spine Active Flexion Range of 54 Motion (degrees) Lumbar Spine Active Extension Range of 17 Motion (degrees) Left Lumbar Spine Lateral Flexion Active 11 Range of Motion (degrees) Right Lumbar Spine Lateral Flexion 17 Active Range of Motion (degrees) Lumbar Spine ROM Limitations Soft Tissue Tightness,Pain Manual Muscle Test Left Knee Extension Strength Grade 4- Good- Knee Flexion Strength Grade 4- Good- Hip Flexion Strength Grade 4- Good- Hip Abduction Strength Grade 4 Good Hip Adduction Strength Grade 4 Good Hip External Rotation Strength Grade 4- Good- Hip Internal Rotation Strength Grade 4- Good- Hip Extension Strength Grade 4 Good Gluteus Jan Strength Grade 5 Normal Extensor Hallucis Longus Strength Grade 4- Good- Ankle Dorsiflexion Strength Grade 4- Good- Gastronemius/Soleus Strength Grade 4- Good- DTR Rt Patellar 2+ Lt Patellar 2+ Altered Sensation Left LE Dermatome Level L1,L2,L3,L4,L5,S1 Comment pt. vocalized light touch sensation symmetrical in BLEs grossly above Special Tests Lumbar Spine Screen Positive Hip Piriformis Test Positive Left Sciatic Nerve Tension Test Positive Left Lumbar Long Dahlgren Distraction Test/Manual Positive Traction Outpatient Therapy Assessment Impairments Problems/Impairmments Palpation Tenderness,Impaired Range of Motion,Impaired Strength,Impaired Gait Pattern ,Impaired Walking,Impaired Standing,Impaired Sitting, Impaired Driving,Impaired Lifting,Impaired Household Care,Impaired Bending,Impaired Recreational Activities, Impaired Work Activities, Subjective C/O Pain,Impaired Self Care/Self Management Prognosis Rehab Potential Good Comment w/ HEP compliancy Clinical Impression Consistent with Diagnosis Yes Consistent with lumbar radiculopathy, L Short Term Goals Number of Weeks 2 Decreased Palpation Tenderness Yes: grade 1-2 +TTP to TTP assessment above Decrease Subjective C/O Pain Yes: worse:11/14 Patient to be Ind w/ HEP Yes Detention Goals Number of Weeks 4-6 Decreased Palpation Tenderness Yes: grade 1 +TTP to TTP assessment above Increase Range of Motion Yes: lumbar AROM WFL grossly w /o difficulty Increase Strength Yes: 4+ to 5/5 LLE MMT scores grossly w/o difficulty Improve Gait Pattern without Assistive Yes: Pt. will demonstrate WNL Device gait w/o AD on even surface Increase Ability to Sit Yes Increase Ability to Drive/Ride in Car Yes Improve Ability For Household Care Yes Improve Ability to Bend Yes Improve Tolerance to Work Activities Yes Improve Oswestry Score Yes Decrease Subjective C/O Pain Yes: worse:-09/14 Improve Self Care/Self Management Yes: Pt. will be able to sleep through the night w/o difficulty Patient to be Ind w/ Advanced HEP Yes Outpatient Therapy Plan of Care Treatment Plan May Include Therapeutic Exercise Including Home Yes Exercise Program Manual Therapy Techniques Yes Neuromuscular Re-education Yes Therapeutic Activities to Return to Yes Previous Functional/Work Level ADL/Self Care Education Yes Mechanical Traction Yes Dry Needling Yes Thermal Modalities Yes Electrical Stimulation Yes Ultrasound/Phonophoresis Yes Iontophoresis Yes Vasopneumatic Compression Pump Yes Massage Yes Eval/Re-Eval Yes Frequency Times per week 2-3 Duration Number of Weeks 4-6 Addendums This patient is a candidate for social No or vocational rehab? Patient/Guardian verbally acknowledges Yes understanding of treatment program and consents to further treatment? Patient/Guardian verbally acknowledges Yes understanding of diagnosis, prognosis and goals for treatment? Eval Complexity PT Charges 05010 - Low Complexity Shoulder/Elbow Eval Shoulder Objective Measurements Elbow Objective Measurements PHYSICIAN CERTIFICATION: I certify the specified therapy services for Lenka Zimmerman are required, authorized, and reviewed every 30 days.
== END 2024-07-07 23:59 | disposition home or self-care (01) ==
LOC: PT 10:00
PROVIDERS: PCP Family Medicine; Visit Provider Family Medicine
DX: M54.30 Sciatica, unspecified side (principal); M43.10 Spondylolisthesis, site unspecified
CPT/HCPCS: 97014; 97110; 97140; 97163; 97164; 97530; G0283

== ENCOUNTER 2024-08-03 13:46 | Outpatient (POV) | payer BC, SELFPAY ==
--- NOTE | 2024-08-03 14:15 | A.OFFVIS_ITS ---
HPI Data of Consult Patient: new to practice Consult date: 08/03/24 Requesting Physician: Cande Mejia APRN Primary Care Provider: Jostin Malin MD Consult Narrative Reason for consult: Left buttocks, hip pain, left foot and ankle pain History of present illness: Ms. Zimmerman is a 58 year old female who presents today as a new patient. She has a referral from Dr. Burton's office. Today she rates her pain a 7 out of 10. Patient states she has pain in her left upper buttocks that goes into her left hip and does typically run down to about her knee as well as left foot and ankle pain. She does describe this as a constant throbbing sensation with increased pressure. She states that this has been more severe from April on unrelated to any fall or injury. Patient does state that she had the pain even before then however it was not as severe and was not interfering with activities of daily living such as cooking and cleaning at that point. Patient states now it is affecting everything that she can even sleep due to the worsening pain. Patient states that prolonged sitting causes increased pain after about 30 minutes and she has to readjust. Patient has tried oral medications such as Tylenol along with heat and ice and topicals with minimal relief. Patient has been out of work due to the worsening pain and states she would like to get back as soon as possible. Patient states that she did have physical therapy and it helped some. Patient does state that she is a type II diabetic that is managed with metformin and another oral medication and states this is working well. Patient does state that Dr. Burton was not necessarily ruling out surgical intervention however wanted her to try some injections before proceeding forward. Patient is also prescribed Flexeril and states this does help some. Her Davis has been reviewed and is appropriate. CC: Cande Mejia APRN [facility] Disclaimer: The information contained in this section may have been updated after the patient was seen, as this information can be updated by other users. Medical History Chronic eustachian tube dysfunction Congestion of left ear Nasal congestion Normal hysteroscopy Constipation Diabetes mellitus, type 2 Inflammation of right eustachian tube Hoarseness COCO (stress urinary incontinence, female) Menopausal symptoms Presence of intrauterine contraceptive device Decreased libido Heart attack Hyperlipidemia Hypertension Surgical History H/O heart artery stent Family History Mother Diabetes Hyperlipidemia Father Cancer Other Hypertension Social History Smoking Status: Current every day smoker tobacco type: cigarettes alcohol intake: never substance use type: denies use current occupational status: employed Travel in the last 8 weeks: None household members: family housing: house Review of Systems Review of Systems Review of systems:: pertinent systems reviewed and negative unless documented below Review of systems (narrative): Review of Systems: General: No recent weight changes, no fever, no sleep disturbances Respiratory: No cough, no shortness of air, no recurring pulmonary infections Cardiovascular/peripheral vascular: No chest pain, no palpitations, no edema, no shortness of breath Gastrointestinal: No new onset incontinence, normal bowel movements reported Genitourinary: No new onset incontinence Musculoskeletal: Left hip pain, left buttocks pain, left upper leg pain with left ankle and foot pain Psychiatric: [Normal mood/affect] Neurological: [Denies weakness in extremities], [denies balance issues] Meds Home Medications and Allergies Home Medications ?Medication ?Instructions ?Recorded ?Confirmed ?Type aspirin 81 mg tablet,delayed 81 mg PO DAILY Blood Thinner 02/01/22 07/06/24 History release metoprolol tartrate 25 mg tablet 25 mg PO BID bp 02/01/22 07/06/24 History simvastatin 40 mg tablet 40 mg PO HS Cholesterol 02/01/22 07/06/24 History lysine 500 mg tablet 500 mg PO DAILY Supplement 06/08/22 07/06/24 History B-complex with vitamin C 1 tab PO DAILY Supplement 02/20/23 07/06/24 History albuterol sulfate 90 mcg/actuation 2 inh inhalation QID PRN shortness 01/02/24 07/06/24 Rx aerosol inhaler of breath or wheezing #6.7 grams cetirizine 10 mg tablet 10 mg PO DAILY PRN allergy 01/13/24 07/06/24 Rx symptoms #90 tabs azelastine 137 mcg (0.1 %) nasal 2 spray intranasal BID #30 mL 01/21/24 07/06/24 Rx spray pioglitazone 15 mg tablet 15 mg PO DAILY #90 tabs 03/17/24 07/06/24 Rx famotidine 20 mg tablet See Rx Instructions .Route 03/24/24 07/06/24 Rx .COMPLEX #180 tabs omeprazole 20 mg capsule,delayed See Rx Instructions .Route 03/24/24 07/06/24 Rx release .COMPLEX #90 caps metformin 500 mg tablet,extended 1,000 mg (2 x 500 mg) PO BID 90 03/30/24 07/06/24 Rx release 24 hr days #360 tabs valsartan 160 1 tab PO DAILY 06/08/24 07/06/24 History mg-hydrochlorothiazide 12.5 mg tablet ibuprofen 800 mg tablet 800 mg PO Q6H #60 tabs 06/09/24 07/06/24 Rx cyclobenzaprine 10 mg tablet 10 mg PO QID muscle relaxer #60 07/09/24 Rx tabs terbinafine HCl 250 mg tablet 250 mg PO DAILY 30 days #30 tabs 07/09/24 Rx bupropion HCl 300 mg 24 hr tablet, 300 mg PO DAILY #30 tabs 07/20/24 Rx extended release levocetirizine 5 mg tablet See Rx Instructions .Route 07/20/24 Rx .COMPLEX #90 tabs New Prescriptions to Start Prescriptions: Allergies Allergy/AdvReac Type Severity Reaction Status Date / Time amoxicillin (From Amoxil) Allergy Swelling Verified 07/06/24 11:18 of the Eye Penicillins Allergy Verified 07/06/24 11:18 Objective Narrative: Physical Exam: General: Alert and oriented x3, no acute distress, pleasant and cooperative Lungs: Respirations even and unlabored, symmetrical chest expansion Eyes: PERRL Musculoskeletal: Flexion and extension of lumbar [spine] somewhat guarded secondary to pain, [antalgic gait noted] positive left leg raise Neurological: Speech clear, no gross sensory deficit Additional findings Additional findings: FINDINGS: Multiplanar MR imaging of the lumbar spine was performed without contrast. On the sagittal T2-weighted images, abnormal decreased signal is seen from L3-4 through L5-S1 disc levels. The vertebrae are of normal height. The vertebral alignment is normal. L1-2: There is no significant canal stenosis or neural foraminal narrowing. L2-3: There is no significant canal stenosis or neural foraminal narrowing. L3-4: Moderate diffuse disc bulge. Left paracentral disc protrusion with moderate compromise of the left side of the spinal canal and moderate bilateral neuroforaminal narrowing. L4-5: Moderate diffuse disc bulge with moderate bilateral neuroforaminal narrowing. L5-S1: Moderate diffuse disc bulge. Left paracentral disc protrusion with moderate to high-grade compromise of the left lateral recess. IMPRESSION: Left paracentral disc protrusion at L3-4 with moderate compromise of the left side of the spinal canal. Left paracentral disc protrusion at L5-S1 with moderate to high-grade compromise of the left lateral recess. Reviewed, Interpreted and Dictated by Yovany Gregory MD Transcribed by Tiarra Madison Authenticated and [facility] Assessment and Plan *Assessment and plan (1) Degenerative disc disease: Status: Acute Category: Medical (2) Lumbar radiculopathy: Status: Acute Category: Medical Code(s): M54.16 - Radiculopathy, lumbar region Plan Patient is experiencing worsening pain in [her] left buttocks, left hip with numbness and tingling into her left lower leg. Patient did have limited range of motion of her lumbar spine with a positive leg raise. I did discuss with patient that I do believe they would benefit from a lumbar epidural steroid injection. Risk and benefits were discussed with patient and the patient would like to proceed forward with this plan of care. Patient is not on any blood thinners. Patient has tried and failed conservative therapy including physical therapy and continued at home stretching exercise for longer than 12 weeks between injections. Patient has not had injection therapy in the past. She was counseled to take diabetes medication as prescribed and that if her sugar is closer to 300 the day of the injection we will have to reschedule her. Patient is going to be ordered a compounded cream. We will schedule the patient for an LESI L5-S1 under fluoroscopy. Patient has been instructed to contact the clinic with any concerns before the next appointment. Dr. Peralta has reviewed this note and agrees with this plan of care. This note was dictated using voice recognition software and make contain errors or omissions. All injections are used with Lidocaine, Bupivacaine and Depo Medrol. Occasionally urine drug screen is needed to verify patient's compliance with our office pain contract. This is ordered based off specific treatments related to chronic pain with the potential to abuse certain medications. Occasionally urine drug screen is needed to verify patient's compliance with our office pain contract. This is ordered based off specific treatments related to chronic pain with the potential to abuse certain medications.
[2024-08-03 14:36] VITALS: BP 193/100; PULSE 95; RESP 18; O2SAT 94; BMI 28.5
== END 2024-08-03 23:59 | disposition home or self-care (01) ==
LOC: SC.PAIN 13:47
PROVIDERS: PCP Family Medicine; Visit Provider Nurse Practitioner Family
DX: M51.16 Intervertebral disc disorders with radiculopathy, lumbar region (principal); Z73.89 Other problems related to life management difficulty; F17.210 Nicotine dependence, cigarettes, uncomplicated; Z79.899 Other long term (current) drug therapy
CPT/HCPCS: 99202; G0463

== ENCOUNTER 2024-08-18 08:13 | Day surgery (SDC) | payer BC, SELFPAY ==
[2024-08-18 08:24] VITALS: BP 193/104; PULSE 86; RESP 16; TEMP 36.8; O2SAT 95; BMI 28.5
[2024-08-18 08:45] VITALS: BP 189/97; PULSE 85; RESP 16; O2SAT 98
[2024-08-18] MEDS: methylPREDNISolone ACETATE 80MG/ML VIAL 80 MG (08:58)
[2024-08-18 08:59] VITALS: BP 180/90; PULSE 79; RESP 18; O2SAT 97
[2024-08-18 09:10] VITALS: BP 180/90; PULSE 79; RESP 18; O2SAT 97
--- NOTE | 2024-08-18 09:12 | EXP.PAIN.PRO ---
Procedure Date: 08/18/24 Time: 08:30 Anesthesiologist:: Liam Cox CRNA Complications:: None Pre-procedure Diagnosis:: Degenerative disc cervical spine multilevels. Cervical radiculopathy. Post-procedure Diagnosis:: Same. Indications for Procedure:: Patient is a very pleasant 58-year-old female who comes our clinic today for lumbar epidural steroid injection. Patient describes low lumbar back pain as well as bilateral hip and leg radicular symptoms at times. She rates her pain 7/10. Procedure Details:: Procedure: Lumbar epidural steroid injection under fluoroscopy Informed consent was obtained and the risks and benefits of the procedure were explained to the patient. The patient was taken to the procedure room and noninvasive monitors placed, including noninvasive blood pressure cuff and pulse oximeter. The back was viewed using C-arm Fluoroscopy and prepped using Chloraprep as a cleansing solution and the L5-S1 interspace was palpated. Skin and subcutaneous tissues were anesthetized using lidocaine 1.5% and a 25-gauge needle. After this, an 18-gauge Touhy epidural needle was placed into the L5-S1 interspace and advanced using fluoroscopic guidance and loss of resistance to air until the epidural space was encountered. After confirmation of needle placement in the epidural space, with dye, a solution containing normal saline, 3 mL and Depo-Medrol 80 mg were incrementally injected into the lumbar epidural space. The patient tolerated the procedure well with no complications. The patient was observed in the Pain Clinic and then discharged home neurologically intact. Plan and Disposition:: Patient was discharged without incident.
== END 2024-08-18 08:45 | disposition home or self-care (01) ==
LOC: SC.PAINP 08:14
PROVIDERS: PCP Family Medicine; Visit Provider Nurse Anesthetist, Certified Registered
DX: M51.16 Intervertebral disc disorders with radiculopathy, lumbar region (principal)
CPT/HCPCS: 62323; J1010

== ENCOUNTER 2024-08-31 08:58 | Outpatient (POV) | payer BC, SELFPAY ==
[2024-08-31 09:13] VITALS: BP 156/94; PULSE 88; RESP 14; O2SAT 100; BMI 28.5
--- NOTE | 2024-08-31 09:29 | EXP.PAIN.SOA ---
[facility] Disclaimer: The information contained in this section may have been updated after the patient was seen, as this information can be updated by other users. Medical History Chronic eustachian tube dysfunction Congestion of left ear Nasal congestion Normal hysteroscopy Constipation Diabetes mellitus, type 2 Inflammation of right eustachian tube Hoarseness COCO (stress urinary incontinence, female) Menopausal symptoms Presence of intrauterine contraceptive device Decreased libido Heart attack Hyperlipidemia Hypertension Surgical History H/O heart artery stent Family History Mother Diabetes Hyperlipidemia Father Cancer Other Hypertension Social History Smoking Status: Current every day smoker tobacco type: cigarettes alcohol intake: never substance use type: denies use current occupational status: other Travel in the last 8 weeks: None household members: family housing: house PM Subjective & Objective Subjective Subjective:: Patient is a pleasant 58-year-old female who presents today for follow-up of lumbar epidural steroid injection L5-S1 on 08/18/2024. Today she rates her pain an 8 out of 10 however states this is just due to the long ride over and getting out of the car and making it into the hospital and walking. She does state that she had significant improvement following this injection with at least 70 to 75% relief. She states she was able to get a good night sleep without being woken up due to her pain. She states the pain is definitely not as severe as what it had been and is much more manageable. Patient does state that she will occasionally have some worsening pain however she is able to stop and take a break and the pain does resolve. She is prescribed compounded cream from our office. Her Davis has been reviewed and is appropriate. Review of Systems: General: No recent weight changes, no fever, no sleep disturbances Respiratory: No cough, no shortness of air, no recurring pulmonary infections Cardiovascular/peripheral vascular: No chest pain, no palpitations, no edema, no shortness of breath Gastrointestinal: No new onset incontinence, normal bowel movements reported Genitourinary: No new onset incontinence Musculoskeletal: Low back pain Psychiatric: [Normal mood/affect] Neurological: [Denies weakness in extremities], [denies balance issues] Pain at rest (0-10 scale): 8 Objective Objective:: Physical Exam: General: Alert and oriented x3, no acute distress, pleasant and cooperative Lungs: Respirations even and unlabored, symmetrical chest expansion Eyes: PERRL Musculoskeletal: Flexion and extension of lumbar [spine] somewhat guarded secondary to pain, [antalgic gait noted] Neurological: Speech clear, no gross sensory deficit Has patient had previous pain injection?: Yes Percent improvement in pain since last injection: 70 to 75% Conservative treatment options previously tried: Home exercise plan Length of treatment: Longer than 12 weeks Meds Home Medications and Allergies Home Medications ?Medication ?Instructions ?Recorded ?Confirmed ?Type aspirin 81 mg tablet,delayed 81 mg PO DAILY Blood Thinner 02/01/22 08/31/24 History release metoprolol tartrate 25 mg tablet 25 mg PO BID bp 02/01/22 08/31/24 History simvastatin 40 mg tablet 40 mg PO HS Cholesterol 02/01/22 08/31/24 History lysine 500 mg tablet 500 mg PO DAILY Supplement 06/08/22 08/31/24 History B-complex with vitamin C 1 tab PO DAILY Supplement 02/20/23 08/31/24 History albuterol sulfate 90 mcg/actuation 2 inh inhalation QID PRN shortness 01/02/24 08/31/24 Rx aerosol inhaler of breath or wheezing #6.7 grams cetirizine 10 mg tablet 10 mg PO DAILY PRN allergy 01/13/24 08/31/24 Rx symptoms #90 tabs azelastine 137 mcg (0.1 %) nasal 2 spray intranasal BID #30 mL 01/21/24 08/31/24 Rx spray pioglitazone 15 mg tablet 15 mg PO DAILY #90 tabs 03/17/24 08/31/24 Rx famotidine 20 mg tablet See Rx Instructions .Route 03/24/24 08/31/24 Rx .COMPLEX #180 tabs omeprazole 20 mg capsule,delayed See Rx Instructions .Route 03/24/24 08/31/24 Rx release .COMPLEX #90 caps metformin 500 mg tablet,extended 1,000 mg (2 x 500 mg) PO BID 90 03/30/24 08/31/24 Rx release 24 hr days #360 tabs valsartan 160 1 tab PO DAILY 06/08/24 08/31/24 History mg-hydrochlorothiazide 12.5 mg tablet ibuprofen 800 mg tablet 800 mg PO Q6H #60 tabs 06/09/24 08/31/24 Rx terbinafine HCl 250 mg tablet 250 mg PO DAILY 30 days #30 tabs 07/09/24 08/31/24 Rx bupropion HCl 300 mg 24 hr tablet, 300 mg PO DAILY #30 tabs 07/20/24 08/31/24 Rx extended release levocetirizine 5 mg tablet See Rx Instructions .Route 07/20/24 08/31/24 Rx .COMPLEX #90 tabs cyclobenzaprine 10 mg tablet 10 mg PO QID muscle relaxer #60 08/12/24 08/31/24 Rx tabs New Prescriptions to Start Prescriptions: Allergies Allergy/AdvReac Type Severity Reaction Status Date / Time amoxicillin (From Amoxil) Allergy Swelling Verified 08/18/24 08:27 of the Eye Penicillins Allergy Swelling Verified 08/18/24 08:27 of the Eye Assessment and Plan *Assessment and plan (1) Lumbar radiculopathy: Status: Acute Category: Medical Code(s): M54.16 - Radiculopathy, lumbar region (2) Degenerative disc disease: Status: Acute Category: Medical Plan Patient has had significant improvement and does not require any additional injection therapy at this time. Patient will return to clinic in 6 weeks for reevaluation of symptoms and plan of care. Patient has been instructed to contact the clinic with any concerns before the next appointment. Dr. Peralta has reviewed this note and agrees with this plan of care. This note was dictated using voice recognition software and make contain errors or omissions. All injections are used with Lidocaine, Bupivacaine and Depo Medrol. Occasionally urine drug screen is needed to verify patient's compliance with our office pain contract. This is ordered based off specific treatments related to chronic pain with the potential to abuse certain medications.
== END 2024-08-31 23:59 | disposition home or self-care (01) ==
LOC: SC.PAIN 08:59
PROVIDERS: PCP Family Medicine; Visit Provider Nurse Practitioner Family
DX: M51.16 Intervertebral disc disorders with radiculopathy, lumbar region (principal); F17.210 Nicotine dependence, cigarettes, uncomplicated; Z79.899 Other long term (current) drug therapy
CPT/HCPCS: 99212; G0463

== ENCOUNTER 2024-10-14 09:14 | Outpatient (POV) | payer BC, SELFPAY ==
[2024-10-14 09:33] VITALS: BP 156/93; BP 160/87; PULSE 87; RESP 16; O2SAT 97; BMI 29.2
--- NOTE | 2024-10-14 09:43 | A.OFFVIS_ITS ---
[facility] Disclaimer: The information contained in this section may have been updated after the patient was seen, as this information can be updated by other users. Medical History Chronic eustachian tube dysfunction Congestion of left ear Nasal congestion Normal hysteroscopy Constipation Diabetes mellitus, type 2 Inflammation of right eustachian tube Hoarseness COCO (stress urinary incontinence, female) Menopausal symptoms Presence of intrauterine contraceptive device Decreased libido Heart attack Hyperlipidemia Hypertension Surgical History H/O heart artery stent Family History Mother Diabetes Hyperlipidemia Father Cancer Other Hypertension Social History Smoking Status: Current every day smoker tobacco type: cigarettes alcohol intake: never substance use type: denies use current occupational status: other Travel in the last 8 weeks: None household members: family housing: house PM Subjective & Objective Subjective Subjective:: Patient is a pleasant 58-year-old female who presents today for follow-up. Today she rates her pain a 5 out of 10. She denies any new falls or injuries. She does state that today the top of her left foot is bothering her but she still has pain around her buttocks on the left side and her left knee. Patient states it is always now the entire left leg. Patient states initially when this first started she did have a lot of tenderness along her right lower calf however over time this did go away and she has never had any additional problems on the right side. Patient did have a lumbar epidural steroid injection of L5- S1 back in August on the that did provide 70 to 75% improvement. Patient has also been prescribed compounded cream from our office and is on Flexeril from her primary care however she states that she really has not noticed a significant improvement with this. Patient does state that she is still waiting to see whether or not when she can return to work. Her Davis has been reviewed and is appropriate. Review of Systems: General: No recent weight changes, no fever, no sleep disturbances Respiratory: No cough, no shortness of air, no recurring pulmonary infections Cardiovascular/peripheral vascular: No chest pain, no palpitations, no edema, no shortness of breath Gastrointestinal: No new onset incontinence, normal bowel movements reported Genitourinary: No new onset incontinence Musculoskeletal: Left leg pain Psychiatric: [Normal mood/affect] Neurological: [Denies weakness in extremities], [denies balance issues] Pain at rest (0-10 scale): 5 Objective Objective:: Physical Exam: General: Alert and oriented x3, no acute distress, pleasant and cooperative Lungs: Respirations even and unlabored, symmetrical chest expansion Eyes: PERRL Musculoskeletal: Flexion and extension of lumbar [spine] somewhat guarded secondary to pain, negative FABERs negative point tenderness along the left SI Neurological: Speech clear, no gross sensory deficit Has patient had previous pain injection?: No Conservative treatment options previously tried: Home exercise plan Length of treatment: Longer than 12 weeks Meds Home Medications and Allergies Home Medications ?Medication ?Instructions ?Recorded ?Confirmed ?Type aspirin 81 mg tablet,delayed 81 mg PO DAILY Blood Thinner 02/01/22 10/14/24 History release metoprolol tartrate 25 mg tablet 25 mg PO BID bp 02/01/22 10/14/24 History simvastatin 40 mg tablet 40 mg PO HS Cholesterol 02/01/22 10/14/24 History lysine 500 mg tablet 500 mg PO DAILY Supplement 06/08/22 10/14/24 History B-complex with vitamin C 1 tab PO DAILY Supplement 02/20/23 10/14/24 History albuterol sulfate 90 mcg/actuation 2 inh inhalation QID PRN shortness 01/02/24 10/14/24 Rx aerosol inhaler of breath or wheezing #6.7 grams azelastine 137 mcg (0.1 %) nasal 2 spray intranasal BID #30 mL 01/21/24 10/14/24 Rx spray pioglitazone 15 mg tablet 15 mg PO DAILY #90 tabs 03/17/24 10/14/24 Rx famotidine 20 mg tablet See Rx Instructions .Route 03/24/24 10/14/24 Rx .COMPLEX #180 tabs omeprazole 20 mg capsule,delayed See Rx Instructions .Route 03/24/24 10/14/24 Rx release .COMPLEX #90 caps metformin 500 mg tablet,extended 1,000 mg (2 x 500 mg) PO BID 90 03/30/24 10/14/24 Rx release 24 hr days #360 tabs valsartan 160 1 tab PO DAILY 06/08/24 10/14/24 History mg-hydrochlorothiazide 12.5 mg tablet ibuprofen 800 mg tablet 800 mg PO Q6H #60 tabs 06/09/24 10/14/24 Rx levocetirizine 5 mg tablet See Rx Instructions .Route 07/20/24 10/14/24 Rx .COMPLEX #90 tabs cyclobenzaprine 10 mg tablet 10 mg PO QID muscle relaxer #60 08/12/24 10/14/24 Rx tabs bupropion HCl 300 mg 24 hr tablet, 300 mg PO DAILY #30 tabs 09/02/24 10/14/24 Rx extended release terbinafine HCl 250 mg tablet 250 mg PO DAILY 30 days #30 tabs 10/13/24 10/14/24 Rx baclofen 10 mg tablet 10 mg PO TID #42 tabs 10/14/24 Rx New Prescriptions to Start Prescriptions: baclofen Cande Mejia Allergies Allergy/AdvReac Type Severity Reaction Status Date / Time amoxicillin (From Amoxil) Allergy Swelling Verified 09/02/24 12:50 of the Eye Penicillins Allergy Swelling Verified 09/02/24 12:50 of the Eye Assessment and Plan *Assessment and plan (1) Lumbar radiculopathy: Status: Acute Category: Medical Code(s): M54.16 - Radiculopathy, lumbar region (2) Degenerative disc disease: Status: Acute Category: Medical Plan I did discuss with the patient coming up when the pain does start to increase additionally that she may benefit from a repeat lumbar epidural or even trying a transforaminal epidural injection. We will follow-up with this coming up. Patient was counseled that I will send in a prescription of baclofen 10 mg 3 times daily as needed. Patient was counseled not to take the Flexeril while taking this medication and to see if this does provide additional improvement. Patient will return to clinic in 2 weeks for reevaluation of symptoms and plan of care. Patient has been instructed to contact the clinic with any concerns before the next appointment. Dr. Peralta has reviewed this note and agrees with this plan of care. This note was dictated using voice recognition software and make contain errors or omissions. All injections are used with Lidocaine, Bupivacaine and Depo Medrol. Occasionally urine drug screen is needed to verify patient's compliance with our office pain contract. This is ordered based off specific treatments related to chronic pain with the potential to abuse certain medications.
--- OUTSIDE RECORDS SUMMARY | 2024-10-15 21:54 | XMS_ITS | Data Portability ---
Author Organization [facility] Dejesus [place] CLOSED Address [address] [address] [place] [address] Care Team Providers Care Security Management Specialist Name Role Phone [facility] Primary Care Provider Assessment Encounter Date Assessment Date Assessment LastModified by Organization Details LastModified Time 05/01/2019 05/01/2019 1. CAD, LAD PCI 2009 2. Hypertension 3. Hyperlipidemia 4. Tobacco abuse Not available 05/01/2019 10:50:47 05/12/2020 05/12/2020 1. CAD, NSTEMI LAD PCI 2009 2. Hypertension 3. Hyperlipidemia 4. Tobacco abuse Not available 05/12/2020 10:12:08 05/11/2021 05/11/2021 1. CAD, NSTEMI LAD PCI 2009 2. Hypertension 3. Hyperlipidemia 4. Tobacco abuse Not available 05/11/2021 12:19:19 06/21/2022 06/21/2022 -CAD, NSTEMI, LA D PCI 2009 -Hypertension -Hyperlipidemia -Chronic tobacco abuse Not available 06/21/2022 14:00:05 Plan of Treatment Reminders Order Date Submit Date Provider Last Modified By Organization Details Last Modified Time Details Appointments None recorded. Lab None recorded. Referral None recorded. Procedures None recorded. Surgeries None recorded. Imaging electrocar diogram 2020 021 [facility], [address] [place] [address] , [address], [place], [address], 11/04/202 1 12:20:13 electrocar diogram 2019 020 SANG Not available 0 10:20:15 electrocar diogram 2018 019 SANG Not available 9 11:32:05 Medication Orders lisinopril 20 mg-hydroch lorothiazi de 12.5 mg tablet 2021 [id number], [address] [place], [address], 14:01:55 metoprolol tartrate 25 mg tablet 2021 [facility], [address] [place], [address], 14:01:55 simvastati n 40 mg tablet 2021 [facility], [address] [place] [address], [address], 14:01:55 metoprolol tartrate 25 mg tablet 2020 [facility], [address], [place], [address], 1 12:19:55 lisinopril 20 mg-hydroch lorothiazi de 12.5 mg tablet 2020 021 [facility], [address], [place], [address], 1 12:19:45 Nitrostat 0.4 mg sublingual tablet 2020 021 [facility], [address], [place], [address], 12:19:59 simvastati n 40 mg tablet 2020 [facility]21 [facility], [address], [place], [address], 1 12:19:49 metoprolol tartrate 25 mg tablet 2019 [facility], [address], [place], [address], 0 10:13:14 lisinopril 20 mg-hydroch lorothiazi de 12.5 mg tablet 2019 [facility], [address], [place], [address], 0 10:13:10 Nitrostat 0.4 mg sublingual tablet 2019 [facility], [address], [place], [address], 0 10:13:17 simvastati n 40 mg tablet 2019 [facility], [address], [place], [address], 0 10:13:20 Wellbutrin SR 150 mg tablet, 12 hr sustained- release [id number] [facility] [address] [facility], [address], [place], [address], 0 09:44:23 metoprolol tartrate 25 mg tablet 2018 019 [facility], [address], [place], [address], 9 10:45:58 lisinopril 20 mg-hydroch lorothiazi de 12.5 mg tablet 2018 019 [facility], [address], [place], [address], 9 10:46:08 Nitrostat 0.4 mg sublingual tablet 2018 019 [facility], [address], [place], [address], 9 10:50:24 simvastati n 40 mg tablet 2018 019 [facility], [address], [place], [address], 9 10:46:11 Patient TargetsNo targets recorded. Patient Instructions Encounter Date Encounter Id Patient Instructions Last Modified By Organization Details Last Modified Time 05/01/2019 [id number] Quitting Tobacco : Care Instructions Not available 05/01/2019 10:51:49 Angina: Care Instructions Not available 05/01/2019 10:51:49 no cardiac complaints. Denies chest pain. Was not able to tolerate Chantix. He is willing to try Wellbutrin. Patient given hand written instruction. 150 mg one daily ? 5 days titrate up to 150 mg twice a day for 7 weeks and then stop. All prescriptions renewed electronically. Call for problems otherwise follow back in one year with EKG. Not available 05/01/2019 10:51:48 05/12/2020 [id number] Quitting Tobacco : Care Instructions Not available 05/12/2020 10:13:00 Angina: Care Instructions Not available 05/12/2020 10:13:00 no cardiac complaints. Continues to do well. PRESCRIPTIONS renewed electronically. Labs are pending. F/U in 1 year Not available 05/12/2020 10:12:57 05/11/2021 [id number] Quitting Tobacco : Care Instructions Not available 05/11/2021 12:19:36 Angina: Care Instructions Not available 05/11/2021 12:19:36 no cardiac complaints. Continues to do well. PRESCRIPTIONS renewed electronically. Labs are pending. F/U in 1 year Not available 05/11/2021 12:18:02 06/21/2022 [id number] Follow-up in 1 year Not available 06/21/2022 14:01:02 Reason for Referral None Reported. Results Created Date Observation Date Name Description Value Unit Range Abnormal Flag Note LastModifiedBy Organization Detail LastModifiedTime 05/12/20 20 05/12/2020 CMP, serum or plasm a glucose 114 mg/dL 74-100 high Not Available [facility] [address] [place] [address], [address], 05/12/2020 13:00:29 05/12/20 20 05/12/2020 CMP, serum or plasm a blood urea nitrogen 9 mg/dL 6-20 normal Not Available [facility] [address] [place] [address], [address], 05/12/2020 13:00:29 05/12/20 20 05/12/2020 CMP, serum or plasm a creatinine 0.56 mg/dL 0.50-0 .95 normal Not Available [facility] [address] [place] [address], [address], 05/12/2020 13:00:29 05/12/20 20 05/12/2020 CMP, serum or plasm a BUN/creatini ne ratio 16 (calc ) 10-20 normal Not Available [facility] [address] [place] [address], [address], 05/12/2020 13:00:29 05/12/20 20 05/12/2020 CMP, serum or plasm a sodium 137 mmol/ L 136-14 5 normal Not Available [facility] [address] [place] [address], [address], 05/12/2020 13:00:29 05/12/20 20 05/12/2020 CMP, serum or plasm a potassium 3.7 mmol/ L 3.4-5. 0 normal Not Available [facility] [address] [place] [address], [address], 05/12/2020 13:00:29 05/12/20 20 05/12/2020 CMP, serum or plasm a chloride 100 mmol/ L 98-107 normal Not Available [facility] [address] [place] [address], [address], 05/12/2020 13:00:29 05/12/20 20 05/12/2020 CMP, serum or plasm a carbon dioxide 25 mmol/ L 20-32 normal Not Available [facility] [address] [place] [address], [address], 05/12/2020 13:00:29 05/12/20 20 05/12/2020 CMP, serum or plasm a anion gap 12 (calc ) 7-25 normal Not Available [facility] [address] [place] [address], [address], 05/12/2020 13:00:29 05/12/20 20 05/12/2020 CMP, serum or plasm a calcium 9.4 mg/dL 8.6-10 .2 normal Not Available [facility] [address] [place] [address], [address], 05/12/2020 13:00:29 05/12/20 20 05/12/2020 CMP, serum or plasm a total protein 7.1 g/dL 6.4-8. 3 normal Not Available [facility] [address] [place] [address], [address], 05/12/2020 13:00:29 05/12/20 20 05/12/2020 CMP, serum or plasm a albumin 4.3 g/dL 3.5-5. 2 normal Not Available [facility] [address] [place] [address], [address], 05/12/2020 13:00:29 05/12/20 20 05/12/2020 CMP, serum or plasm a globulin 2.8 g/dL_ (calc ) 1.5-4. 5 normal Not Available [facility] [address] [place] [address], [address], 05/12/2020 13:00:29 05/12/20 20 05/12/2020 CMP, serum or plasm a albumin/glob ulin ratio 1.5 (calc ) 1.1-2. 5 normal Not Available [facility] [address] [place] [address], [address], 05/12/2020 13:00:29 05/12/20 20 05/12/2020 CMP, serum or plasm a bilirubin, total 0.4 mg/dL 0.1-1. 2 normal Not Available [facility] [address] [place] [address], [address], 05/12/2020 13:00:29 05/12/20 20 05/12/2020 CMP, serum or plasm a alkaline phosphatase 83 U/L 35-105 normal Not Available [facility] [address] [place] [address], [address], 05/12/2020 13:00:29 05/12/20 20 05/12/2020 CMP, serum or plasm a AST 19 U/L 0-32 normal Not Available [facility] [address] [place] [address], [address], 05/12/2020 13:00:29 05/12/20 20 05/12/2020 CMP, serum or plasm a ALT 24 U/L 0-33 normal Not Available [facility] [address] [place] [address], [address], 05/12/2020 13:00:29 05/12/20 20 05/12/2020 CMP, serum or plasm a GFR 122 >= 60 normal Not Available [facility] [address] [place] [address], [address], 05/12/2020 13:00:29 05/12/20 20 05/12/2020 CMP, serum or plasm a GFR non- 105 >= 60 normal NOT E NEW calcu latio n for GFR is based on the Natio nal Kidne y Found ation CKD-E PI equat ion and allow s for repor ting GFR value s great er than 60 mL/mi n/1.7 3 m2. This calcu latio n has not been valid ated for patie nts less than 18 yrs., pregn ant women and Hispa nics. Chron ic kidne y disea se is defin ed as kidne y damag e or GFR less than 60 mL/mi n/1.7 3 m2 for 3 month s or longe r. Not Available [facility] [address] [place] [address], [address], 05/12/2020 13:00:29 05/12/2005/12/2020 magne sium, QN, serum or plasm a magnesium 1.91 mg/dL 1.60-2 .60 normal Not Available [facility] [address] [place] [address], [address], 05/12/2020 13:00:31 05/12/2005/12/2020 lipid panel , serum HDL cholesterol 41 mg/dL 66-242 low Not Available [facility] [address] [place] [address], [address], 05/12/2020 13:00:32 05/12/2005/12/2020 lipid panel , serum triglyceride s 212 mg/dL 0-149 high TRIGL YCERI DE RANGE S LYNN L: < 150 BORDE RLINE HIGH: 150 - 199 HIGH: 200 - 499 VERY HIGH: > OR = 500 Not Available [facility] [address] [place] [address], [address], 05/12/2020 13:00:32 05/12/2005/12/2020 lipid panel , serum cholesterol 165 mg/dL 0-199 normal ISABEL STERO L (TOTA L) RANGE S MARY ALICE ABLE: < 200 BORDE RLINE : 200 - 239 HIGHE R RISK: > 239 Not Available [facility] [address] [place], [address], 05/12/2020 13:00:32 05/12/2005/12/2020 lipid panel , serum LDL cholesterol 82 mg/dL _(catarina c) 0-99 normal LDL ISABEL STERO L RANGE S OPTIM AL: < 100 NEAR/ ABOVE OPTIM AL: 100 - 129 BORDE RLINE HIGH: 130 - 159 HIGH: 160 - 189 VERY HIGH: > OR = 190 Not Available [facility] [address] [place] [address], [address], 05/12/2020 13:00:32 05/12/2005/12/2020 TSH, serum or plasm a TSH 1.690 uIU/m L 0.290- 5.500 normal Not Available [facility] [address] [place] [address], [address], 05/12/2020 13:22:51 05/12/2005/12/2020 CBC w/ auto diff white blood cells 9.7 K/uL 3.8-10 .8 normal Not Available [facility] [address] [place] [address], [address], 05/12/2020 13:29:25 05/12/20 20 05/12/2020 CBC w/ auto diff red blood cells 4.63 M/uL 3.80-5 .20 normal Not Available [facility] [address] [place] [address], [address], 05/12/2020 13:29:25 05/12/2005/12/2020 CBC w/ auto diff hemoglobin 15.0 g/dL 12.0-1 6.0 normal Not Available [facility] [address] [place] [address], [address], 05/12/2020 13:29:25 05/12/20 20 05/12/2020 CBC w/ auto diff hematocrit 42.8 % 35.0-4 7.0 normal Not Available [facility] [address] [place] [address], [address], 05/12/2020 13:29:25 05/12/2005/12/2020 CBC w/ auto diff MCV 92 fL 80-100 normal Not Available [facility] [address] [place] [address], [address], 05/12/2020 13:29:25 11/05/05/12/2020 CBC w/ auto diff MCH 32 pg 26-35 normal Not Available [facility] [address] [place] [address], [address], 05/12/2020 13:29:25 05/12/20 20 05/12/2020 CBC w/ auto diff MCHC 35 g/dL 32-36 normal Not Available [facility] [address] [place] [address], [address], 05/12/2020 13:29:25 05/12/20 20 05/12/2020 CBC w/ auto diff RDW 12.9 % 11.0-1 5.0 normal Not Available [facility] [address] [place] [address], [address], 05/12/2020 13:29:25 05/12/20 20 05/12/2020 CBC w/ auto diff MPV 9.8 fL 6.2-10 .5 normal Not Available [facility] [address] [place] [address], [address], 05/12/2020 13:29:25 05/12/20 20 05/12/2020 CBC w/ auto diff platelet count 191 K/uL 130-40 0 normal Not Available [facility] [address] [place] [address], [address], 05/12/2020 13:29:25 05/12/20 20 05/12/2020 CBC w/ auto diff neutrophil,a bsolute 6.2 K/uL 1.6-8. 4 normal Not Available [facility] [address] [place] [address], [address], 05/12/2020 13:29:25 05/12/20 20 05/12/2020 CBC w/ auto diff lymphocyte,a bsolute 2.6 K/uL 0.4-5. 1 normal Not Available [facility] [address] [place] [address], [address], 05/12/2020 13:29:25 05/12/20 20 05/12/2020 CBC w/ auto diff monocyte,abs olute 0.6 K/uL 0.0-1. 2 normal Not Available [facility] [address] [place] [address], [address], 05/12/2020 13:29:25 05/12/20 20 05/12/2020 CBC w/ auto diff eosinophil,a bsolute 0.2 K/uL 0.0-0. 8 normal Not Available [facility] [address] [place] [address], [address], 05/12/2020 13:29:25 05/12/20 20 05/12/2020 CBC w/ auto diff basophil,abs olute 0.1 K/uL 0.0-0. 3 normal Not Available [facility] [address] [place] [address], [address], 05/12/2020 13:29:25 05/12/20 20 05/12/2020 CBC w/ auto diff % neutrophils 63.9 % 42.0-7 8.0 normal Not Available [facility] [address] [place] [address], [address], 05/12/2020 13:29:25 05/12/2005/12/2020 CBC w/ auto diff % lymphocytes 27.2 % 11.0-4 7.0 normal Not Available [facility] [address] [place] [address], [address], 05/12/2020 13:29:25 05/12/20 20 05/12/2020 CBC w/ auto diff % monocytes 5.9 % 0.0-11 .0 normal Not Available [facility] [address] [place] [address], [address], 05/12/2020 13:29:25 05/12/20 20 05/12/2020 CBC w/ auto diff % eosinophils 2.3 % 0.0-7. 0 normal Not Available [facility] [address] [place] [address], [address], 05/12/2020 13:29:25 05/12/20 20 05/12/2020 CBC w/ auto diff % basophils 0.7 % 0.0-3. 0 normal Not Available [facility] [address] [place] [address], [address], 05/12/2020 13:29:25 05/12/20 20 05/12/2020 CBC w/ auto diff nucleated red cells 0.1 % 0.0-0. 9 normal Not Available [facility] [address] [place], [address], 05/12/2020 13:29:25 05/12/20 20 05/12/2020 CBC w/ auto diff nucleated RBCs, absolute 0.01 K/uL not estab. normal Not Available [facility] [address] [place] [address], [address], 05/12/2020 13:29:25 05/05/20 19 05/01/2019 elect rocar diogr am No observ ation record ed. [email or web address] Not Available 2018 11:32:10 05/16/20 20 05/12/2020 elect rocar diogr am No observ ation record ed. [email or web address] Not Available 2019 10:20:19 05/11/20 21 elect rocar diogr am No observ ation record ed. [email or web address] [facility] [address] Nimesh Tijerina [facility], [place], [address], 05/11/2021 10:06:55 05/15/20 21 05/11/2021 elect rocar diogr am No observ ation record ed. BARCODE [facility] [address], [place], [address], 05/15/2021 09:14:07 Result Notes None recorded. Problems Name Problem SNOMED Code Status Onset Date Resolution Date Notes Provider Name and Address Organization Details Recorded Time Coronary arterios clerosis in jamul artery 75557787837 07 Active 2015 From [employer];Pro vider: Lisa Kuhn; Status: Active Not Available [facility] 6 09:11:31 Hyperten sive disorder 05885869 Active 2015 From [employer];Pro vider: Lisa Kuhn; Status: Active Not Available [facility] 6 09:11:31 Hyperlip idemia 21121671 Active 2015 From [employer];Pro vider: Lisa Kuhn; Status: Active Not Available [facility] 6 09:11:31 History of coronary artery bypass grafting 493337027 Completed 201601/30/2017 RASHEED LE PA-C [address] [place] [address], [address] , [facility] 7 13:01:13 Tobacco dependen ce syndrome 71827421 Active 2016 RASHEED LE PA-C [address] [place] [address], [address] , [facility] 7 12:59:44 Problem Notes Documentation Provider Name and Address Organization Details Recorded Time Treadmill Nuclear Stress Zoe t (proc) : [facility] ? ? [address] [facility] [address]LFULYFSW, Nancy C (id #[id number], : 1965) [facility] [address] [place]?[address] Phone:?? Fax:?? Encounter Summary - Progress Note Date Printed: ?06/21/2022 Documents sent via fax will include the followingmessage: This fax may contain sensitive and confidential personal health information that is being sent for the sole use of the intended recipient. Unintended recipients are directed to securely destroy any materials received. You are hereby notified that the unauthorized disclosure or other unlawful use of this fax or any personal health information is prohibited. To the extent patient information contained in this fax is subject to 42 CFR Part 2, this regulation prohibits unauthorized disclosure of these records. If you received this fax in error, please visit [email or web address] to notify the sender and confirm that the information will be destroyed. If you do not have internet access, please call to notify the sender and confirm that the information will be destroyed. Thank you for your attention and cooperation. [ID:[id number]] Patient Lenka Barker (56yo, F) #[id number] 1965 ?? Patient Demographics: Address [address] [place] [address] [place] [address] ? Encounter Notes: Encounter Reason/DateNone recorded 06/21/2022 - 12:30PM - [facility] History of Present IllnessNone recorded Review of SystemsAdditionally reports:COVID Questionnaire 1. Have you or anyone accompanying you today been diagnosed with CoVid-19 in the past 5 days?? Patient: NO Visitor:____ 2. In the last 3 days have you and/or anyone with you today had COVID symptoms? (cough, fever, muscle aches, loss of taste or smell, vomiting, diarrhea, headache, sore throat, or congestion/runny nose) Patient: NO Visitor:____ 3. Have you and/or anyone accompanying you today been in close contact with a person known to have COVID-19/Coronavirus in the past 5 days? Patient: NO Visitor:____ If answered YES to any of the questions above. Notify provider/service dept. of arrival. Await instructions from provider's office. VitalsNone recorded Results/InterpretationsNone recorded Physical ExamNone recorded Procedure DocumentationStress Test - Nuclear:STRESS TEST - NUCLEAR Referring Physician: KARISSA Irby Physician: [facility] Attending Physician Conclusion: 1. Stress - Patient walked for 6:00 minutes on the Fredrick Protocol which is as expected for age and gender. Target heart rate was achieved, and peak systolic blood pressure was 180 mmHg. The test was terminated due to THR achievement. This is considered an adequate stress test. 2. EKG: Rest - normal sinus rhythm, rate=97, normal axis, cannot rule out old anterior NE. Stress - sinus tachycardia, no arrhythmias seen, no significant ST changes. 3. St Treadmill Score: 6. 4. LV Data: TID=0.76, LVEDV=55ml, LVESV=17ml, LVEF=69%, SSS=0, SDS=0. 5. Wall Motion: Wall motion is normal on review of the raw data. 6. Perfusion: Perfusion is normal on review of the raw data. Impression: 1. Normal myocardial perfusion at rest and stress. 2. LVEF=69%, and normal regional wall motion. 3. Stress EKG that revealed no significant changes when compared to baseline EKG. 4. Average Exercise Capacity for Age and Gender. 5. St Treadmill Score of 6. M. Anup Tellez M.D., [facility] (06/21/22) Protocol: Fredrick Clinical Data: CAD Medications: see list IV: IV Saline Lock #22g in right AC by AMANDA Meehan Resting ECG was Nuclear Medicine Dose: 10.57 mCi TC Myoview -Rest Nuclear Medicine Dose: 30.7 mCi TC Myoview - Stress Attending Nurses: GABRILELE Ren RN A.Kephart, RN Nuclear Tech: NAUN Chisholm Attending Physician: Dr. Tellez Interpreting Physician: Dr. Tellez Ischemic Response: Reason for terminating Study: THRA, SOA Total Duration: 6 min Expected Duration: 6 min METs: VO2: DILCIA:_ Arrhythmia: 85% PMHR= _ 100% PMHR= 164 Details: EKG Report: Scanned separately Functional capacity: Normal Notes: Injected at 5 min Heart Rate: 142 STAGE Mph Grade METS Minutes BP HR Comments Pretest: 0.0 0% 142/82 102 Stage II: 2.5 12% 7 3 164/72 123 Stage III 3.4 14% 10 3 172/80 150 Stage IV 4.2 16% 13 Stage V 5.0 18% 7-18 Post Test Immediate Recovery 180/80 138 4 Min Recovery 152/78 116 Add Recovery 6 min 107 Assessment and PlanNone recorded Return to Office Patient will return to the office as needed Patient Medical History: Allergies List Reviewed Allergies AMOXICILLIN: Other - Reaction: EYE SWELLING; Comment: Created By: Shreyas Sandoval;Created Date: 10/19/2009 12:13:06 PM; PENICILLINS: - Comment: Created By: Shreyas Sandoval;Created Date: 10/19/2009 12:12:53 PM; Medications Reviewed Medications NameDate Source aspirin 81 mg tabletDaily, start ?start ed ushaffi.222 lisinopriL 20 mg-hydrochlorothiazide 12.5 mg tabletTAKE 1 TABLET BY MOUTH ONCE DAILY.06/21/22?prescribe d RASHEED LE PA-C lysine 1,000 mg stakvnYlawo10/06/16?ente red usjeanffsarahy.264 metoprolol tartrate 25 mg tabletTAKE 1 TABLET BY MOUTH TWICE DAILY.06/21/22?prescribe d RASHEED LE PA-C Nitrostat 0.4 mg sublingual tabletprn pain05/11/21?prescribed RASHEED LE PA-C simvastatin 40 mg tabletTAKE 1 TABLET BY MOUTH AT BEDTIME.06/21/22?prescri bed RASHEED LE PA-C vitamin B bgtsqhcLqhif05/05/16?ent ered elissa.[email or web address] Family HistoryFamily History not reviewed (last reviewed 05/11/2021) Past Medical History HypertensionY Vaccine HistoryVaccines not reviewed (last reviewed 05/11/2021) Vaccine Type Date Amt. Route Site NDC Lot??# Mfr. Exp. Date VIS VIS Given [employer] COVID-19 COVID-19, mRNA, LNP-S, PF, 30 mcg/0.3 mL dose ([facility] [employer]) 11/02/20 [employer] COVID-19, mRNA, LNP-S, PF, 30 mcg/0.3 mL dose ([employer]) 10/12/20 [employer] Electronically Signed by: LAUREN TELLEZ MD KATHARINA Hearn [facility] 06/25/2022 16:30:08 Procedures Surgical History Date Name Laterality Status Provider Name and Address Organization Details Recorded Time 2 Stress Test - Nuclear completed LAUREN TELLEZ MD [address] [place], [address], [facility] 06/21/2022 19:50:19 1 EKG completed RASHEED LE PA-C [address] [place], [address], [facility] 05/11/2021 12:18:06 0 EKG completed RASHEED LE PA-C [address] [place], [address], [facility] 05/12/2020 10:11:32 9 EKG completed RASHEED LE PA-C [address] [place], [address], [facility] 05/01/2019 10:50:52 8 EKG completed RASHEED LE PA-C [address] [place], [address], [facility] 03/21/2018 10:32:37 7 EKG completed RASHEED LE PA-C [address] [place], [address], [facility] 01/30/2017 13:02:10 Stent Placement completed Radha Quinonez [facility] 05/12/2020 09:39:38 tooth extraction completed Radha Quinonez [facility] 05/12/2020 09:40:07 Imaging Results Imaging Date Name Status LastModified by Organization Details LastModified Time 05/01/2019 electrocardiogram completed [email or web address] Informa tion not available 05/05/2019 11:32:10 05/12/2020 electrocardiogram completed [email or web address] Informa tion not available 05/16/2020 10:20:19 05/11/2021 electrocardiogram completed [email or web address] [facility] [address], [place], [address], 05/11/2021 10:06:55 05/11/2021 electrocardiogram completed BAR[facility] [address], [place], [address], 05/15/2021 09:14:07 Procedure Notes None recorded. Medical Equipment None Reported. Allergies Allergen ID Allergen Name Allergen Category Reaction Reaction Severity Criticality Documentation Date Start Date Code Code System Note Provider Name and Address Organization Details Recorded Time 656984 amoxicill in trihydrat e medicatio n other Not available Not available 06/01/20162009 04342 8 RxNorm React ion: EYE SWELL ING; Comme nt: Creat ed By: Rajiv wisdom;Cr eated Date: 2009 12:13 :06 PM; Not Available [facility] 6 09:06:17 341664 Product containin g penicilli n (product) medicatio n Not available Not available Not available 06/01/20162009 40223 8001 SNOMED Comme nt: Creat ed By: Rajiv wisdom;Cr eated Date: 2009 12:12 :53 PM; Not Available [facility] 6 09:47:42 Medications Name Sig Start Date Stop Date Status Note LastModified by Organization Details LastModified Time lisinopri l 20 mg-hydroc hlorothia zide 12.5 mg tablet TAKE 1 TABLET BY MOUTH ONCE DAILY. 2021 active Not Available Not Available Not Avai lable Wellbutri n SR 150 mg tablet, 12 hr sustained -release Take 1 tablet twice a day by oral route as directe d. 05/12 completed Not Available Not Available Not Available lysine 1,000 mg tablet Daily active Frequency : daily;Alt Frequency : as direct.;M edication Descripti on: lysine; Route:ora l; refills:0 Not Available Not Available Not Available simvastat in 40 mg tablet TAKE 1 TABLET BY MOUTH AT BEDTIME . 2021 active Not Available Not Available Not Avai lable Nitrostat 0.4 mg sublingua l tablet prn pain 2020 active Instructi ons: 1 sublingua l for chest pain repeat every 5 minutes x 3 if needed.;F requency: prn pain;Medi cation Descripti on: nitroglyc angie; Dosage:1; Route:sub lingual; refills:1 1; Quantity: 25 tablet Not Available Not Available Not Available aspirin 81 mg tablet Daily 2009 active Duration: 30 days;Freq uency: daily;Med ication Descripti on: aspirin; Dosage:1; Route:ora l; refills:0 ; Quantity: 30 tablet Not Available Not Available Not Available metoprolo l tartrate 25 mg tablet TAKE 1 TABLET TWICE DAILY 2022 active Not Available Not Available Not Avai lable vitamin B complex Daily active Frequency : daily;Alt Frequency : as direct.;M edication Descripti on: multivita min; refills:0 Not Available Not Available Not Available Vitamin D3 05/11 completed 400 units Not Available Not Available Not Available Chantix Continuin g Month Box 1 mg tablet Take 1 tablet twice a day by oral route. 05/11 completed Not Available Not Available Not Available Vitals Date Recorded Body height Body mass index (BMI) Body weight Heart rate Systolic blood pressure Diastolic blood pressure Provider Name and Address Organization Details Last Updated DateTime 9 162.56 cm 30.6 kg/m2 69882.4 4 g 75 /min 122 mm[Hg] 80 mm[Hg] Jeana Philip [facility] 9 10:26:39 Date Recorded Body height Body mass index (BMI) Body weight Heart rate Systolic blood pressure Diastolic blood pressure Provider Name and Address Organization Details Last Updated DateTime 0 162.56 cm 31.1 kg/m2 91724.2 2 g 63 /min 118 mm[Hg] 72 mm[Hg] Radha Quinonez [facility] 0 09:48:47 Date Recorded Body height Body mass index (BMI) Body weight Heart rate Oxygen saturation Oxygen saturation in Arterial blood by Pulse oximetry Systolic blood pressure Diastolic blood pressure Provider Name and Address Organization Details Last Updated DateTime 1 162.56 cm 31.8 kg/m2 71108.5 9 g 72 /min 97 % 97 % 130 mm[Hg] 80 mm[Hg] Suleiman Parrish [facility] 1 10:15:50 Social History Question Answer Notes LastModified by Organizat ion Details LastModified Time Tobacco Smoking Status Current Every Day Smoker [place] [facility] 01/30/2017 12:06:14 What Is Your Level Of Alcohol Consumption? None Information not available 01/30/2017 How Much Tobacco Do You Chew? None Information not available 05/12/2020 Which Illicit Or Recreational Drugs Have You Used? None Per Patient [email or web address] Information not available 05/12/2020 Do You Or Have You Ever Used E-cigarettes Or Vape? 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 With Others Information not available 01/30/2017 Marital Status Single Informatio n not available 01/30/2017 What Was The Date Of Your Most Recent Tobacco Screening? 05/11/2021 [email or web address] Information not available 05/11/2021 How Many Children Do You Have? 1 Information not available 01/30/2017 What Is Your Relationship Status? Single [email or web address] Information not available 05/11/2021 Do You Or Have You Ever Used Smokeless Tobacco? Never Used Smokeless Tobacco [email or web address] Information not available 05/12/2020 How Much Tobacco Do You Smoke? 0.5 PPD Information not available 01/30/2017 How Many Years Have You Smoked Tobacco? 40 Information not available 01/30/2017 Have You Recently Traveled Abroad? No [email or web address] Information not available 05/11/2021 Sex: Unknown Functional Status None recorded. Mental Status None recorded. Family History Nothing Reported. Medical History Condition Response Hypertension Y Gynecological HistoryNo gynecological history recorded. Obstetrics History GPAL:G 0 P 0 0 0 0 Immunizations Vaccine Type Date Status Note Provider Nam e and Address Organization Details Recorded Time COVID-19, mRNA, LNP-S, PF, 30 mcg/0.3 mL dose 10/12/2020 michael Parrish [facility] 05/11/2021 10:06:07 COVID-19, mRNA, LNP-S, PF, 30 mcg/0.3 mL dose 11/02/2020 michael Parrish [facility] 05/11/2021 10:06:19 Past Encounters Encounter ID Performer Location Encounter Start Date Encounter Closed Date Diagnosis/Indication Diagnosis SNOMED-CT Code Diagnosis ICD10 Code Diagnosis Note [id number] RASHEED LE PA-C [facility] [address] [place] [address] 01/30/2017 11:30:38 01/30/2017 14:14:22 Coronary arteriosclerosis in jamul artery 9945248393 107 I25.10 Hyperlipidemia 05956141 E78.5 Tobacco de pendence syndrome 39339272 F17.200 Hypertensive disorder 38 219964 I10 [id number] RASHEED LE PA-C CARDIOLOG [facility] [address] [place] [address] 03/21/2018 09:37:44 03/21/2018 10:37:31 Coronary arteriosclerosis in jamul artery 4521555750 107 I25.10 Hyperlipidemia 19228990 E78.5 Tobacco de pendence syndrome 66892581 F17.200 Hypertensive disorder 38 179536 I10 [id number] RASHEED LE PA-C CARDIOLOG [facility] [address] [place] [address] 05/01/2019 10:05:41 05/01/2019 11:03:58 Tobacco dependence syndrome 03686417 F17.200 Renewal of prescription 592455260 Z76.0 Coronary arteriosclerosis in jamul artery 1844642280 107 I25.10 Hypertensive disorder 38 881078 I10 Hyperlipidemia 21903636 E78.5 [id number] RASHEED LE PA-C C[place] [place] [address] [place] [address] 05/12/2020 09:06:40 05/12/2020 10:32:35 Tobacco dependence syndrome 19406430 F17.200 Renewal of prescription 553427121 Z76.0 Coronary arteriosclerosis in jamul artery 8902250253 107 I25.10 Hypertensive disorder 38 035037 I10 Hyperlipidemia 89670689 E78.5 [id number] RASHEED LE PA-C CARDIOLOG Y [address] [place] [address] 05/11/2021 09:34:10 05/11/2021 12:20:13 Tobacco dependence syndrome 67349668 F17.200 smoking cessation discussed with the patient. She has attempted to stop in the past without success. Job was hospitaliz ed in. I've asked her to try to cut her smoking at least a half Renewal of prescription 608672749 Z76.0 Coronary arteriosclerosis in jamul artery 7883435218 107 I25.10 Medication changes, as well as new medication s were reviewed and discussed in detail including benefit and risk of therapy. The patient is otherwise doing well on current management . No new active problems identified . Chronic problems are all stable. Patient is to continue current regimen without change. All questions answered and regimen reviewed. Patient is to call for any change in status Hypertensive disorder 38 055828 I10 Blood pressure goals reviewed with the patient ( <140/90) encouraged regular exercise, healthy weight maintenanc e and adherence to low sodium diet (<2gm qd per AHA recommenda tions) Monitor BP's periodical ly at home. Hyperlipidemia 47509498 E78.5 Labs reviewed and discussed with the patient. Lipid goals discussed with patient. (Total cholestero l less than 170, LDL less than 70. ) Continue heart healthy diet. [id number] LAUREN TELELZ MD [facility] [address] [place] [address] 06/21/2022 11:45:39 06/22/2022 07:59:27 [id number] RASHEED LE PA-C CARDIOLOG Y [address] [place] [address] 06/21/2022 11:46:56 06/21/2022 14:15:04 Coronary arteriosclerosis 47442147 I25.10 The patient is doing well on current management . No new active problems identified . Chronic problems are all stable. Patient is to continue current regimen without change. All questions answered and regimen reviewed. Patient is to call for any change in status Myoview GXT pending Essential hypertension 54463746 I10 Blood pressure goals reviewed with the patient ( <140/90) encouraged regular exercise, healthy weight maintenanc e and adherence to low sodium diet (<2gm qd per AHA recommenda tions) Monitor BP's periodical ly at home. Tobacco de pendence syndrome 14032344 F17.200 smoking cessation discussed with the patient. She has attempted to stop in the past without success. Hypertensive disorder 38 374024 I10 Blood pressure goals reviewed with the patient ( <140/90) encouraged regular exercise, healthy weight maintenanc e and adherence to low sodium diet (<2gm qd per AHA recommenda tions) Monitor BP's periodical ly at home. Hyperlipidemia 55548383 E78.5 Labs reviewed and discussed with the patient. Lipid goals discussed with patient. (Total cholestero l less than 170, LDL less than 70. ) Continue heart healthy diet. Health Concerns Section Related Observation LastModified by Organization Detai ls LastModified Time None Recorded Concern Status LastModified by Organization Details LastModified Time None Recorded Advance Directives Directive None Recorded Payers Encounter Date Sequence Insurance Name Policy Number Policy Olguin Covered Member ID Olguin Member ID Guarantor Name 05/01/2019 1 [facility] (PPO) [id number] Lenka Barker [id number] Lenka Barker 05/12/2020 1 [place] [employer] [place] (PP[place]) [id number] Lenka Barker [id number] Lenka Barker 05/11/2021 1 [place] [id number] Lenka Barker [id number] Lenka Barker 06/21/2022 1 [place] [employer] [place] [id number] Lenka Barker [id number] Lenka Barker 06/21/2022 1 [place] [id number] Lenka Barker [id number] Lenka Barker Notes Date Note Type Note Provider Name and Address Organization Details Recorded Time 05/01/2019 text/html pleasant 53-year-old white female chronic smoker with coronary artery disease and prior LAD stenting in 2009. She comes today for follow-up. She smokes one half pack of cigarettes per day. She is compliant with her medications. She denies chest pain palpitations dizziness syncope or shortness of breath. RASHEED LE PA-C [address] [place], [address], [facility] 05/01/2019 10:52:02 05/12/2020 text/html zach 54-year-old white female chronic smoker with coronary artery disease NSTEMI and LAD stenting in 2009. She comes today for follow-up. She smokes one half pack of cigarettes per day. She is compliant with her medications. She denies chest pain palpitations dizziness syncope or shortness of breath. RASHEED LE PA-C [address] [place], [address], [facility] 05/12/2020 10:13:12 05/11/2021 text/html zach 55-year-old white female chronic smoker with coronary artery disease NSTEMI and LAD stenting in 2009. She comes today for follow-up. She smokes one half pack of cigarettes per day. She is compliant with her medications. She denies chest pain palpitations dizziness syncope or shortness of breath. RASHEED LE PA-C [address] [place], [address], [facility] 05/11/2021 12:19:48 06/21/2022 text/html Zach 56-year-old white female chronic smoker with CAD, NSTEMI and LAD PCI 2009. Comes today for follow-up. No complaints. Denies chest pain palpitations dizziness or syncope. Unfortunately continues to smoke half pack of cigarettes per day. RASHEED LE PA-C [address] [place], [address], [facility] 06/21/2022 14:01:59 OBGyn Episode No OBEpisode recorded.
== END 2024-10-14 23:59 | disposition home or self-care (01) ==
PROVIDERS: PCP Family Medicine; Visit Provider Nurse Practitioner Family
DX: M51.16 Intervertebral disc disorders with radiculopathy, lumbar region (principal); F17.210 Nicotine dependence, cigarettes, uncomplicated
CPT/HCPCS: 99212; G0463

== ENCOUNTER 2024-10-28 08:28 | Outpatient (POV) | payer BC, SELFPAY ==
[2024-10-28 08:42] VITALS: BP 133/89; PULSE 80; RESP 16; O2SAT 97; BMI 29.5
--- NOTE | 2024-10-28 08:53 | EXP.PAIN.SOA ---
[facility] Disclaimer: The information contained in this section may have been updated after the patient was seen, as this information can be updated by other users. Medical History Chronic eustachian tube dysfunction Congestion of left ear Nasal congestion Normal hysteroscopy Constipation Diabetes mellitus, type 2 Inflammation of right eustachian tube Hoarseness COCO (stress urinary incontinence, female) Menopausal symptoms Presence of intrauterine contraceptive device Decreased libido Heart attack Hyperlipidemia Hypertension Surgical History H/O heart artery stent Family History Mother Diabetes Hyperlipidemia Father Cancer Other Hypertension Social History Smoking Status: Current every day smoker tobacco type: cigarettes alcohol intake: never substance use type: denies use current occupational status: other Travel in the last 8 weeks: None household members: family housing: house PM Subjective & Objective Subjective Subjective:: Patient is a pleasant 58-year-old female who presents today for follow-up. She rates her pain a 5 out of 10. She states she has not had any new falls or injuries. She does state that the previous injection she feels like is still helping her sleep a little bit however is starting to experience worsening pain that still go from her low back and radiate down her entire left extremity. Patient denies any radiating symptoms into the right lower extremity. Patient does describe it as an aching, throbbing sensation with numbness and tingling into the left leg. She does state the pain interferes with her ability perform activities of daily living such as cooking and cleaning. Patient did have her last epidural in August that did provide 70 to 75% improvement and has worked really well up until now. Patient does state that she would be interested in trying another injection. Patient does state that her primary care does still have her off work at this time. Patient was given baclofen 10 mg at our last appointment however states that she took this and did not notice any additional improvement and has discontinued it. Patient states that she frequently feels like she is waking up about every 2 hours due to the pain. Her Davis has been reviewed and is appropriate. Review of Systems: General: No recent weight changes, no fever, no sleep disturbances Respiratory: No cough, no shortness of air, no recurring pulmonary infections Cardiovascular/peripheral vascular: No chest pain, no palpitations, no edema, no shortness of breath Gastrointestinal: No new onset incontinence, normal bowel movements reported Genitourinary: No new onset incontinence Musculoskeletal: Low back pain, left leg pain Psychiatric: [Normal mood/affect] Neurological: [Denies weakness in extremities], [denies balance issues] Pain at rest (0-10 scale): 5 Objective Objective:: Physical Exam: General: Alert and oriented x3, no acute distress, pleasant and cooperative Lungs: Respirations even and unlabored, symmetrical chest expansion Eyes: PERRL Musculoskeletal: Flexion and extension of lumbar [spine] somewhat guarded secondary to pain, [antalgic gait noted] positive left leg raise with decreased sensation to light touch and decreased reflexes Neurological: Speech clear, no gross sensory deficit Has patient had previous pain injection?: No Conservative treatment options previously tried: Home exercise plan Length of treatment: Longer than 12 weeks Meds Home Medications and Allergies Home Medications ?Medication ?Instructions ?Recorded ?Confirmed ?Type aspirin 81 mg tablet,delayed 81 mg PO DAILY Blood Thinner 02/01/22 10/28/24 History release metoprolol tartrate 25 mg tablet 25 mg PO BID bp 02/01/22 10/28/24 History simvastatin 40 mg tablet 40 mg PO HS Cholesterol 02/01/22 10/28/24 History lysine 500 mg tablet 500 mg PO DAILY Supplement 06/08/22 10/28/24 History B-complex with vitamin C 1 tab PO DAILY Supplement 02/20/23 10/28/24 History albuterol sulfate 90 mcg/actuation 2 inh inhalation QID PRN shortness 01/02/24 10/28/24 Rx aerosol inhaler of breath or wheezing #6.7 grams azelastine 137 mcg (0.1 %) nasal 2 spray intranasal BID #30 mL 01/21/24 10/28/24 Rx spray pioglitazone 15 mg tablet 15 mg PO DAILY #90 tabs 03/17/24 10/28/24 Rx famotidine 20 mg tablet See Rx Instructions .Route 03/24/24 10/28/24 Rx .COMPLEX #180 tabs omeprazole 20 mg capsule,delayed See Rx Instructions .Route 03/24/24 10/28/24 Rx release .COMPLEX #90 caps metformin 500 mg tablet,extended 1,000 mg (2 x 500 mg) PO BID 90 03/30/24 10/28/24 Rx release 24 hr days #360 tabs levocetirizine 5 mg tablet See Rx Instructions .Route 07/20/24 10/28/24 Rx .COMPLEX #90 tabs terbinafine HCl 250 mg tablet 250 mg PO DAILY 30 days #30 tabs 10/13/24 10/28/24 Rx cyclobenzaprine 10 mg tablet 10 mg PO QID muscle relaxer #60 10/20/24 10/28/24 Rx tabs ibuprofen 800 mg tablet 800 mg PO Q6H #60 tabs 10/20/24 10/28/24 Rx bupropion HCl 75 mg tablet 75 mg PO BID #60 tabs 10/21/24 10/28/24 Rx valsartan 160 1 tab PO BID 10/21/24 10/28/24 History mg-hydrochlorothiazide 12.5 mg tablet New Prescriptions to Start Prescriptions: Allergies Allergy/AdvReac Type Severity Reaction Status Date / Time amoxicillin (From Amoxil) Allergy Swelling Verified 10/21/24 10:45 of the Eye Penicillins Allergy Swelling Verified 10/21/24 10:45 of the Eye Assessment and Plan *Assessment and plan (1) Lumbar radiculopathy: Status: Acute Category: Medical Code(s): M54.16 - Radiculopathy, lumbar region (2) Degenerative disc disease: Status: Acute Category: Medical (3) Spinal stenosis: Status: Acute Category: Medical Code(s): M48.00 - Spinal stenosis, site unspecified (4) Low back pain: Status: Acute Category: Medical Code(s): M54.50 - Low back pain, unspecified Plan Patient is experiencing worsening pain in her low back with symptoms radiating down her entire left leg. Patient had limited range of motion of her lumbar spine along with a positive left leg raise and decreased sensation to light touch and decreased reflexes during today's exam. In previous visits we did discuss that there was a more targeted approach that we could try or we angle her epidural needle just along the left side. I have discussed with the patient that they may benefit from this left-sided transforaminal epidural steroid injection. Risk and benefits were discussed with the patient and she would like to proceed forward with this plan of care. Patient is not on any blood thinners. Patient has had chronic low back pain for longer than 6 months. Patient's last all epidural Was done in August with 70 to 75% improvement and did work for about 2.5 months. We will schedule the patient for a left transforaminal epidural steroid injection L4-L5 and L5-S1. I will also send him a prescription of tizanidine 4 mg at bedtime to see if this does help her sleep better. Patient has been instructed to contact the clinic with any concerns before the next appointment. Dr. Peralta has reviewed this note and agrees with this plan of care. This note was dictated using voice recognition software and make contain errors or omissions.
== END 2024-10-28 23:59 | disposition home or self-care (01) ==
PROVIDERS: PCP Family Medicine; Visit Provider Nurse Practitioner Family
DX: M54.16 Radiculopathy, lumbar region (principal); M48.00 Spinal stenosis, site unspecified; M54.50 Low back pain, unspecified; F17.210 Nicotine dependence, cigarettes, uncomplicated; Z73.89 Other problems related to life management difficulty
CPT/HCPCS: 99212; G0463

== ENCOUNTER 2024-11-24 13:23 | Day surgery (SDC) | payer BC, SELFPAY ==
[2024-11-24 13:42] VITALS: BP 136/83; PULSE 98; RESP 16; TEMP 36.9; O2SAT 96; BMI 29.2
[2024-11-24] MEDS: IOPAMIDOL-200 (41%);10ML VIAL 10 ML IV (13:50)
[2024-11-24 13:59] VITALS: BP 134/77; PULSE 100; RESP 16; O2SAT 93
--- NOTE | 2024-11-24 13:59 | EXP.PAIN.PRO ---
Procedure Date: 11/24/24 Time: 14:00 Anesthesiologist:: Liam Cox CRNA Complications:: None Pre-procedure Diagnosis:: Generative disc lumbar spine multilevels. Lumbar radiculopathy. Lumbar disc bulge L4-5, L5-S1. Post-procedure Diagnosis:: Same. Indications for Procedure:: Patient is a very pleasant 58-year-old female who comes our clinic today for a left L5-S1 foraminal epidural steroid injection. Patient has low lumbar back pain off the midline to the left including the left hip and leg to the foot. She describes the radicular pain as constant, dull, aching. Procedure Details:: Details of the procedure explained to the patient. The patient was taken to procedure room placed in the prone position. The area over the lumbar spine was cleansed using chlorhexidine as a cleansing solution. Using fluoroscopy guidance markers were placed over the left border of the L5-S1 vertebral body. At each marker the skin and subcutaneous tissue was anesthetized using 1% lidocaine and a 25-gauge needle. At this time using fluoroscopy guidance 3 and half inch 22-gauge spinal needle was used to access the upper one third of the left L5-S1 foramen. Using fluoroscopy guidance in the lateral position needle position was confirmed using 0.5 mL of contrast dye. Good spread was noted in the epidural space. After negative aspiration 2 mL of 1% lidocaine and 40 mg of Depo-Medrol was injected at each level. Patient tolerated procedure without difficulty. There are no complications. Plan and Disposition:: Patient was discharged without incident.
[2024-11-24] MEDS: LIDOCAINE 1% 30ML PF VIAL 30 ML (14:00)
[2024-11-24] MEDS: DEXAMETHASONE 10MG/ML 1ML VIAL 10 MG (14:00)
[2024-11-24 14:01] VITALS: BP 148/92; PULSE 102; RESP 18; O2SAT 94
[2024-11-24 14:02] VITALS: BP 148/92; PULSE 102; RESP 18; O2SAT 94
== END 2024-11-24 13:59 | disposition home or self-care (01) ==
PROVIDERS: PCP Family Medicine; Visit Provider Nurse Anesthetist, Certified Registered
DX: M51.16 Intervertebral disc disorders with radiculopathy, lumbar region (principal)
CPT/HCPCS: 64483; J1100; Q9966

== ENCOUNTER 2024-12-08 11:15 | Outpatient (POV) | payer BC, SELFPAY ==
--- OUTSIDE RECORDS SUMMARY | 2024-12-08 11:17 | XMS_ITS | Data Portability ---
Author Organization [facility] JOHNSON Dejesus [place] CLOSED Address [address] [facility] [address] [place] [address] Care Team Providers Care Development Rep Name Role Phone [facility] LISA Primary [...] None recorded. Imaging electrocar diogram 2020 021 [email or web address] [facility], [address] [place] [address] , [address], [place], [address], 11/04/202 1 12:20:13 electrocar diogram 2019 020 SANG Not available 0 10:20:15 electrocar diogram 2018 019 SANG Not available 9 11:32:05 Medication Orders lisinopril 20 mg-hydroch lorothiazi de 12.5 mg tablet 2021 [id number], [address] [place], [address], 14:01:55 metoprolol tartrate 25 mg tablet 2021 [facility], [address] [place], [address], 14:01:55 simvastati n 40 mg tablet 2021 [facility], [address] [place] [address], [address], 14:01:55 metoprolol tartrate 25 mg tablet 2020 [facility], [address], [place], [address], 1 12:19:55 lisinopril 20 mg-hydroch lorothiazi de 12.5 mg tablet 2020 021 [facility], [address], [place], [address], 1 12:19:45 Nitrostat 0.4 mg sublingual tablet 2020 021 [facility], [address], [place], [address], 12:19:59 simvastati n 40 mg tablet 2020 021 [facility], [address], [place], [address], 1 12:19:49 metoprolol tartrate 25 mg tablet 2019 [facility], [address], [place], [address], 0 10:13:14 lisinopril 20 mg-hydroch lorothiazi de 12.5 mg tablet 2019 [facility] [address], [address], [place], [address], 0 10:13:10 Nitrostat 0.4 mg sublingual tablet 2019 [facility] [address], [address], [place], [address], 0 10:13:17 simvastati n 40 mg tablet 2019 [facility], [address], [place], [address], 0 10:13:20 Wellbutrin SR 150 mg tablet, 12 hr sustained- release [email or web address] [facility] [address] [facility], [address], [place], [address], 0 09:44:23 metoprolol tartrate 25 mg tablet 2018 019 [facility], [address], [place], [address], 9 10:45:58 lisinopril 20 mg-hydroch lorothiazi de 12.5 mg tablet 2018 019 [facility] [address], [address], [place], [address], 9 10:46:08 Nitrostat 0.4 mg sublingual tablet [address] [facility] [address], [address], [place], [address], 9 10:50:24 simvastati n 40 mg tablet [address] [facility], [address], [place], [address], 9 10:46:11 Patient TargetsNo targets recorded. Patient Instructions Encounter Date Encounter Id Patient Instructions Last Modified By Organization Details Last Modified Time 05/01/2019 [id number] Quitting Tobacco : Care Instructions Not available 05/01/2019 10:51:49 Angina: Care Instructions Not available 05/01/2019 10:51:49 no cardiac complaints. Denies chest pain. Was not able to tolerate Chantix. He is willing to try Wellbutrin. Patient given hand written instruction. 150 mg one daily 5 days titrate up to 150 mg twice a day for 7 weeks and then stop. All prescriptions renewed electronically. Call for problems otherwise follow back in one year with EKG. Not available 05/01/2019 10:51:48 05/12/2020 [id number] Quitting Tobacco : Care Instructions Not available 05/12/2020 10:13:00 Angina: Care Instructions Not available 05/12/2020 10:13:00 no cardiac complaints. Continues to do well. PRESCRIPTIONS renewed electronically. Labs are pending. F/U in 1 year Not available 05/12/2020 10:12:57 05/11/2021 [id number] Quitting Tobacco : Care Instructions Not available 05/11/2021 12:19:36 Angina: Care Instructions Not available 05/11/2021 12:19:36 no cardiac complaints. Continues to do well. PRESCRIPTIONS renewed electronically. Labs are pending. F/U in 1 year Not available 05/11/2021 12:18:02 06/21/2022 [id number] Follow-up in 1 year Not available 06/21/2022 14:01:02 Reason for Referral None Reported. Results Created Date Observation Date Name Description Value Unit Range Abnormal Flag Note LastModifiedBy Organization Detail LastModifiedTime 05/12/2005/12/2020 CMP, serum or plasm a glucose 114 mg/dL 74-100 high Not Available [facility] [address] [place] [address], [address], 05/12/2020 13:00:29 05/12/20 20 05/12/2020 CMP, serum or plasm a blood urea nitrogen 9 mg/dL 6-20 normal Not Available [facility] [address] [place] [address], [address], 05/12/2020 13:00:29 05/12/20 20 05/12/2020 CMP, serum or plasm a creatinine 0.56 mg/dL 0.50-0 .95 normal Not Available [facility] [address] [place] [address], [address], 05/12/2020 13:00:29 05/12/20 20 05/12/2020 CMP, serum or plasm a BUN/creatini ne ratio 16 (calc ) 10-20 normal Not Available [facility] [address] [place] [address], [address], 05/12/2020 13:00:29 05/12/20 20 05/12/2020 CMP, serum or plasm a sodium 137 mmol/ L 136-14 5 normal Not Available [facility] [address] [place] [address], [address], 05/12/2020 13:00:29 05/12/20 20 05/12/2020 CMP, serum or plasm a potassium 3.7 mmol/ L 3.4-5. 0 normal Not Available [facility] [address] [place] [address], [address], 05/12/2020 13:00:29 05/12/20 20 05/12/2020 CMP, serum or plasm a chloride 100 mmol/ L 98-107 normal Not Available [facility] [address] [place] [address], [address], 05/12/2020 13:00:29 05/12/20 20 05/12/2020 CMP, serum or plasm a carbon dioxide 25 mmol/ L 20-32 normal Not Available [facility] [address] [place] [address], [address], 05/12/2020 13:00:29 05/12/20 20 05/12/2020 CMP, serum or plasm a anion gap 12 (calc ) 7-25 normal Not Available [facility] [address] [place] [address], [address], 05/12/2020 13:00:29 05/12/20 20 05/12/2020 CMP, serum or plasm a calcium 9.4 mg/dL 8.6-10 .2 normal Not Available [facility] [address] [place] [address], [address], 05/12/2020 13:00:29 05/12/20 20 05/12/2020 CMP, serum or plasm a total protein 7.1 g/dL 6.4-8. 3 normal Not Available [facility] [address] [place] [address], [address], 05/12/2020 13:00:29 05/12/20 20 05/12/2020 CMP, serum or plasm a albumin 4.3 g/dL 3.5-5. 2 normal Not Available [facility] [address] [place] [address], [address], 05/12/2020 13:00:29 05/12/20 20 05/12/2020 CMP, serum or plasm a globulin 2.8 g/dL_ (calc ) 1.5-4. 5 normal Not Available [facility] [address] [place] [address], [address], 05/12/2020 13:00:29 05/12/20 20 05/12/2020 CMP, serum or plasm a albumin/glob ulin ratio 1.5 (calc ) 1.1-2. 5 normal Not Available [facility] [address] [place] [address], [address], 05/12/2020 13:00:29 05/12/20 20 05/12/2020 CMP, serum or plasm a bilirubin, total 0.4 mg/dL 0.1-1. 2 normal Not Available [facility] [address] [place] [address], [address], 05/12/2020 13:00:29 05/12/20 20 05/12/2020 CMP, serum or plasm a alkaline phosphatase 83 U/L 35-105 normal Not Available [facility] [address] [place] [address], [address], 05/12/2020 13:00:29 05/12/20 20 05/12/2020 CMP, serum or plasm a AST 19 U/L 0-32 normal Not Available [facility] [address] [place] [address], [address], 05/12/2020 13:00:29 05/12/20 20 05/12/2020 CMP, serum or plasm a ALT 24 U/L 0-33 normal Not Available [facility] [address] [place] [address], [address], 05/12/2020 13:00:29 05/12/20 20 05/12/2020 CMP, serum or plasm a GFR 122 >= 60 normal Not Available [facility] [address] [place] [address], [address], 05/12/2020 13:00:29 05/12/20 20 05/12/2020 CMP, serum [...] month s or longe r. Not Available [facility] [address] [place] [address], [address], 05/12/2020 13:00:29 05/12/2005/12/2020 magne sium, QN, serum or plasm a magnesium 1.91 mg/dL 1.60-2 .60 normal Not Available [facility] [address] [place] [address], [address], 05/12/2020 13:00:31 05/12/2005/12/2020 lipid panel , serum HDL cholesterol 41 mg/dL 66-242 low Not Available [facility] [address] [place] [address], [address], 05/12/2020 13:00:32 05/12/2005/12/2020 lipid panel , serum triglyceride s 212 mg/dL 0-149 high TRIGL YCERI DE RANGE S LYNN L: < 150 BORDE RLINE HIGH: 150 - 199 HIGH: 200 - 499 VERY HIGH: > OR = 500 Not Available [facility] [address] [place] [address], [address], 05/12/2020 13:00:32 05/12/2005/12/2020 lipid panel , serum cholesterol 165 mg/dL 0-199 normal ISABEL STERO L (TOTA L) RANGE S MARY ALICE ABLE: < 200 BORDE RLINE : 200 - 239 HIGHE R RISK: > 239 Not Available [facility] [address] [place] [address], [address], 05/12/2020 13:00:32 05/12/2005/12/2020 lipid panel , serum LDL cholesterol 82 mg/dL _(catarina c) 0-99 normal LDL ISABEL STERO L RANGE S OPTIM AL: < 100 NEAR/ ABOVE OPTIM AL: 100 - 129 BORDE RLINE HIGH: 130 - 159 HIGH: 160 - 189 VERY HIGH: > OR = 190 Not Available [facility] [address] [place] [address], [address], 05/12/2020 13:00:32 05/12/2005/12/2020 TSH, serum or plasm a TSH 1.690 uIU/m L 0.290- 5.500 normal Not Available [facility] [address] [place] [address], [address], 05/12/2020 13:22:51 05/12/2005/12/2020 CBC w/ auto diff white blood cells 9.7 K/uL 3.8-10 .8 normal Not Available [facility] [address] [place] [address], [address], 05/12/2020 13:29:25 05/12/20 20 05/12/2020 CBC w/ auto diff red blood cells 4.63 M/uL 3.80-5 .20 normal Not Available [facility] [address] [place] [address], [address], 05/12/2020 13:29:25 05/12/2005/12/2020 CBC w/ auto diff hemoglobin 15.0 g/dL 12.0-1 6.0 normal Not Available [facility] [address] [place] [address], [address], 05/12/2020 13:29:25 05/12/2005/12/2020 CBC w/ auto diff hematocrit 42.8 % 35.0-4 7.0 normal Not Available [facility] [address] [place] [address], [address], 05/12/2020 13:29:25 05/12/2005/12/2020 CBC w/ auto diff MCV 92 fL 80-100 normal Not Available [facility] [address] [place] [address], [address], 05/12/2020 13:29:25 05/12/2005/12/2020 CBC w/ auto diff MCH 32 pg 26-35 normal Not Available [facility] [address] [place] [address], [address], 05/12/2020 13:29:25 05/12/20 20 05/12/2020 CBC w/ auto diff MCHC 35 g/dL 32-36 normal Not Available [facility] [address] [place] [address], [address], 05/12/2020 13:29:25 05/12/20 20 05/12/2020 CBC w/ auto diff RDW 12.9 % 11.0-1 5.0 normal Not Available [facility] [address] [place] [address], [address], 05/12/2020 13:29:25 05/12/2005/12/2020 CBC w/ auto diff MPV 9.8 fL 6.2-10 .5 normal Not Available [facility] [address] [place] [address], [address], 05/12/2020 13:29:25 05/12/20 20 05/12/2020 CBC w/ auto diff platelet count 191 K/uL 130-40 0 normal Not Available [facility] [address] [place] [address], [address], 05/12/2020 13:29:25 05/12/2005/12/2020 CBC w/ auto diff neutrophil,a bsolute 6.2 K/uL 1.6-8. 4 normal Not Available [facility] [address] [place] [address], [address], 05/12/2020 13:29:25 05/12/2005/12/2020 CBC w/ auto diff lymphocyte,a bsolute 2.6 K/uL 0.4-5. 1 normal Not Available [facility] [address] [place] [address], [address], 05/12/2020 13:29:25 05/12/20 20 05/12/2020 CBC w/ auto diff monocyte,abs olute 0.6 K/uL 0.0-1. 2 normal Not Available [facility] [address] [place] [address], [address], 05/12/2020 13:29:25 05/12/20 20 05/12/2020 CBC w/ auto diff eosinophil,a bsolute 0.2 K/uL 0.0-0. 8 normal Not Available [facility] [address] [place] [address], [address], 05/12/2020 13:29:25 05/12/20 20 05/12/2020 CBC w/ auto diff basophil,abs olute 0.1 K/uL 0.0-0. 3 normal Not Available [facility] [address] [place] [address], [address], 05/12/2020 13:29:25 05/12/20 20 05/12/2020 CBC w/ auto diff % neutrophils 63.9 % 42.0-7 8.0 normal Not Available [facility] [address] [place] [address], [address], 05/12/2020 13:29:25 05/12/20 20 05/12/2020 CBC w/ auto diff % lymphocytes 27.2 % 11.0-4 7.0 normal Not Available [facility] [address] [place] [address], [address], 05/12/2020 13:29:25 05/12/20 20 05/12/2020 CBC w/ auto diff % monocytes 5.9 % 0.0-11 .0 normal Not Available [facility] [address] [place] [address], [address], 05/12/2020 13:29:25 05/12/20 20 05/12/2020 CBC w/ auto diff % eosinophils 2.3 % 0.0-7. 0 normal Not Available [facility] [address] [place] [address], [address], 05/12/2020 13:29:25 05/12/20 20 05/12/2020 CBC w/ auto diff % basophils 0.7 % 0.0-3. 0 normal Not Available [facility] [address] [place] [address], [address], 05/12/2020 13:29:25 05/12/20 20 05/12/2020 CBC w/ auto diff nucleated red cells 0.1 % 0.0-0. 9 normal Not Available [facility] [address] [place], [address], 05/12/2020 13:29:25 05/12/20 20 05/12/2020 CBC w/ auto diff nucleated RBCs, absolute 0.01 K/uL not estab. normal Not Available [facility] [address] [place] [address], [address], 05/12/2020 13:29:25 05/05/20 19 05/01/2019 elect rocar diogr am No observ ation record ed. Not Available 2018 11:32:10 05/16/20 20 05/12/2020 elect rocar diogr am No observ ation record ed. [email or web address] Not Available 2019 10:20:19 05/11/20 21 elect rocar diogr am No observ ation record ed. [email or web address] [facility] [address] [facility], [place], [address], 05/11/2021 10:06:55 05/15/20 21 05/11/2021 elect rocar diogr am No observ ation record ed. BARCODE [facility] [address], [place], [address], 05/15/2021 09:14:07 Result Notes None recorded. 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 51887195241 07 Active 2015 From [employer];Pro vider: Lisa Kuhn; Status: Active Not Available [facility] 6 09:11:31 Hyperten sive disorder 76800529 Active 2015 From [employer];Pro vider: Lisa Kuhn; Status: Active Not Available [facility] 6 09:11:31 Hyperlip idemia 40866950 Active 2015 From [employer];Pro vider: Lisa Kuhn; Status: Active Not Available [facility] 6 09:11:31 History of coronary artery bypass grafting 786114663 Completed 201601/30/2017 RASHEED ELIAS PA-C [address] [place] [address], [phone] , [facility] 7 13:01:13 Tobacco dependen ce syndrome 46489417 Active 2016 RASHEED ELIAS PA-C [address] [place] [address], [address] , [facility] 7 12:59:44 Problem Notes Documentation Provider Name and Address Organization Details Recorded Time Treadmill Nuclear Stress Zoe t (proc) : [place] [address] [id number], Nancy C (id #[id number], : 1965) [place] [address] [place] [address] Encounter Summary - Progress Note Date Printed: 06/21/2022 Documents sent via fax will include the [...] received this fax in error, please visit [email or web address] to notify the sender and confirm that the information will be destroyed. If you do not have internet access, please call to notify the sender and confirm that the information will be destroyed. Thank you for your attention and cooperation. [ID:[id number]] Patient Lenka Barker (56yo, F) #[id number] 1965 Patient Demographics: Address [address] [place] [address] [place] [address] Encounter Notes: Encounter Reason/DateNone recorded 06/21/2022 - 12:30PM - [facility] History of Present IllnessNone recorded [...] - Nuclear:STRESS TEST - NUCLEAR Referring Physician: Rasheed Elias PA-C Cc Physician: [facility] Internal Medicine Attending Physician Conclusion: 1. Stress [...] normal axis, cannot rule out old anterior MO. Stress - sinus tachycardia, no arrhythmias seen, [...] Score of 6. M. Anup Tellez M.D., [facility] (06/21/22) Protocol: Fredrick Clinical Data: CAD Medications: see list IV: IV Saline Lock #22g in right AC by AMANDA Meehan Resting ECG was Nuclear Medicine Dose: 10.57 mCi TC Myoview -Rest Nuclear Medicine Dose: 30.7 mCi TC Myoview - Stress Attending Nurses: GABRIELLE Ren RN A.Kephart, RN Nuclear Tech: NAUN [...] NameDate Source aspirin 81 mg tabletDaily, start started [facility].222 lisinopriL 20 mg-hydrochlorothiazide 12.5 mg tabletTAKE 1 TABLET BY MOUTH ONCE DAILY.06/21/22 prescribed RASHEED ELIAS PA-C lysine 1,000 mg eamteyAiiyp32/06/16 entered [facility].264 metoprolol tartrate 25 mg tabletTAKE 1 TABLET BY MOUTH TWICE DAILY.06/21/22 prescribed RASHEED ELIAS PA-C Nitrostat 0.4 mg sublingual tabletprn pain05/11/21 prescribed RASHEED ELIAS PA-C simvastatin 40 mg tabletTAKE 1 TABLET BY MOUTH AT BEDTIME.06/21/22 prescribed RASHEED ELIAS PA-C vitamin B [id number]/05/16 entered [facility].247 Family HistoryFamily History not reviewed (last reviewed 05/11/2021) Past Medical History HypertensionY Vaccine HistoryVaccines not reviewed (last reviewed 05/11/2021) Vaccine Type Date Amt. Route Site [facility] Lot # Mfr. Exp. Date VIS VIS Given [employer] COVID-19 COVID-19, mRNA, LNP-S, PF, 30 mcg/0.3 mL dose ([employer]) 11/02/20 [employer] COVID-19, mRNA, LNP-S, PF, 30 mcg/0.3 mL dose ([employer]) 10/12/20 [employer] Electronically Signed by: LAUREN TELLEZ MD Ирина francis [facility] 06/25/2022 16:30:08 Procedures Surgical History Date Name Laterality Status Provider Name and Address Organization Details Recorded Time 2 Stress Test - Nuclear completed LAUREN TELLEZ MD [facility] [place], [address], [facility] 06/21/2022 19:50:19 1 EKG [place], [address], [facility] 05/11/2021 12:18:06 0 EKG completed RASHEED MANUEL ELIAS-C [address] [place], [address], [facility] 05/12/2020 10:11:32 9 EKG completed RASHEED MANUEL ELIAS-C [place], [place], [address] [place] [address], [facility] 05/01/2019 10:50:52 8 EKG completed RASHEED SCHWARTZKYRA PA-C [address] [place], [place], [address] [place] [address], [facility] 03/21/2018 10:32:37 7 EKG completed RASHEED [place], [address], [facility] 01/30/2017 13:02:10 Stent Placement completed [facility] 05/12/2020 09:39:38 tooth extraction completed [facility] 05/12/2020 09:40:07 Imaging Results None recorded. Procedure Notes None recorded. Medical Equipment None Reported. Allergies Allergen ID Allergen Name Allergen Category Reaction Reaction Severity Criticality Documentation Date Start Date Code Code System Note Provider Name and Address Organization Details Recorded Time 534639 amoxicill in trihydrat e medicatio n other Not available Not available 06/01/20162009 18823 8 RxNorm React ion: EYE SWELL ING; Comme nt: Creat ed By: Rajiv wisdom;Cr eated Date: 2009 12:13 :06 PM; Not Available [facility] 6 09:06:17 [id number] Product containin g penicilli n (product) medicatio n Not available Not available Not available 06/01/20162009 71207 8001 SNOMED Comme nt: Creat ed By: Rajiv wisdom;Cr eated Date: 2009 12:12 :53 PM; Not Available [facility] 6 09:47:42 Medications Name Sig Start Date [...] Updated DateTime 9 162.56 cm 30.6 kg/m2 40820.4 4 g 75 /min 122 mm[Hg] 80 mm[Hg] Jeana Philip [facility] 9 10:26:39 Date Recorded Body height Body mass index (BMI) Body weight Heart rate Oxygen saturation Oxygen saturation in Arterial blood by Pulse oximetry Systolic blood pressure Diastolic blood pressure Provider Name and Address Organization Details Last Updated DateTime 1 162.56 cm 31.8 kg/m2 41071.5 9 g 72 /min 97 % 97 % 130 mm[Hg] 80 mm[Hg] Suleiman Parrish [facility] 1 10:15:50 Date Recorded Body height Body mass index (BMI) Body weight Heart rate Systolic blood pressure Diastolic blood pressure Provider Name and Address Organization Details Last Updated DateTime 0 162.56 cm 31.1 kg/m2 88640.2 2 g 63 /min 118 mm[Hg] 72 mm[Hg] Radha Quinonez [facility] 0 09:48:47 Social History Question Answer Notes LastModified by Organizat ion Details LastModified Time Tobacco Smoking Status [facility]/30[facility] 12:06:14 How Much Tobacco Do You Chew? None [email or web address] Information not available 05/12/2020 Which Illicit Or Recreational Drugs Have You Used? None Per Patient [email or web address] Information not available 05/12/2020 Live Alone Or With Others? With Others Information not available 01/30/2017 Marital Status Single Informatio n not available 01/30/2017 What Was The Date Of Your Most Recent Tobacco Screening? 05/11/2021 [email or web address] Information not available 05/11/2021 How Many Children Do You Have? 1 Information not available 01/30/2017 What Is Your Relationship Status? Single [email or web address] Information not available 05/11/2021 How Much Tobacco Do You Smoke? 0.5 PPD Information not available 01/30/2017 How Many Years Have You Smoked Tobacco? 40 Information not available 01/30/2017 Have You Recently Traveled Abroad? No [email or web address] Information not available 05/11/2021 Sex: Unknown Functional Status Question Answer Note LastModified by Organizat ion Details LastModified Time What is your level of alcohol consumption? None Information not available 01/30/2017 Do you or have you ever used smokeless tobacco? 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 Never used electronic cigarettes [email or web address] Information not available 05/12/2020 Mental Status None recorded. Family History Nothing Reported. Medical History Condition Response Hypertension Y Gynecological HistoryNo gynecological history recorded. Obstetrics History GPAL:G 0 P 0 0 0 0 Immunizations Vaccine Type Date Status Note Provider Nam e and Address Organization Details Recorded Time COVID-19, mRNA, LNP-S, PF, 30 mcg/0.3 mL dose 10/12/2020 completed Suleiman Parrish [facility] 05/11/2021 10:06:07 COVID-19, mRNA, LNP-S, PF, 30 mcg/0.3 mL dose 11/02/2020 completed Suleiman Parrish [facility] 05/11/2021 10:06:19 Past Encounters Encounter ID Performer Location Encounter Start Date Encounter Closed Date Diagnosis/Indication Diagnosis SNOMED-CT Code Diagnosis ICD10 Code Diagnosis Note [id number] RASHEED ELIAS PA-C CARDIOLOG Y [facility] CLOSED [address] [place] [address] 01/30/2017 11:30:38 01/30/2017 14:14:22 Coronary arteriosclerosis in three affiliated artery 0859849968 107 I25.10 Hyperlipidemia 59168012 E78.5 Tobacco de pendence syndrome 01327763 F17.200 Hypertensive disorder 38 450766 I10 [id number] RASHEED ELIAS PA-C CARDIOLOG Y [facility] CLOSED [address] [place] [address] 03/21/2018 09:37:44 03/21/2018 10:37:31 Coronary arteriosclerosis in three affiliated artery 8432528374 107 I25.10 Hyperlipidemia 18108589 E78.5 Tobacco de pendence syndrome 75234345 F17.200 Hypertensive disorder 38 406067 I10 [id number] RASHEED ELIAS PA-C CARDIOLOG Y [facility] CLOSED [address] [place] [address] 05/01/2019 10:05:41 05/01/2019 11:03:58 Tobacco dependence syndrome 15945747 F17.200 Renewal of prescription 654794692 Z76.0 Coronary arteriosclerosis in three affiliated artery 3408889964 107 I25.10 Hypertensive disorder 38 379642 I10 Hyperlipidemia 30235306 E78.5 [id number] RASHEED ELIAS PA-C CARDIOLOG Y [address] [place] [address] 05/12/2020 09:06:40 05/12/2020 10:32:35 Tobacco dependence syndrome 28822250 F17.200 Renewal of prescription 680689940 Z76.0 Coronary arteriosclerosis in three affiliated artery 8271340569 107 I25.10 Hypertensive disorder 38 182880 I10 Hyperlipidemia 57139753 E78.5 [id number] RASHEED ELIAS PA-C CARDIOLOG Y [address] [place] [address] 05/11/2021 09:34:10 05/11/2021 12:20:13 Tobacco dependence syndrome 37579679 F17.200 smoking cessation discussed with the patient. She has attempted to stop in the past without success. Gonzalezshankar was hospitaliz ed in. I've asked her to try to cut her smoking at least a half Renewal of prescription 354053654 Z76.0 Coronary arteriosclerosis in three affiliated artery 4689249786 107 I25.10 Medication changes, as well as [...] any change in status Hypertensive disorder 38 784468 I10 Blood pressure goals reviewed with the patient ( <140/90) encouraged regular exercise, healthy weight maintenanc e and adherence to low sodium diet (<2gm qd per AHA recommenda tions) Monitor BP's periodical ly at home. Hyperlipidemia 35699406 E78.5 Labs reviewed and discussed with the patient. Lipid goals discussed with patient. (Total cholestero l less than 170, LDL less than 70. ) Continue heart healthy diet. [id number] LAUREN TELLEZ [facility] [address] [place] [address] 06/21/2022 11:45:39 06/22/2022 07:59:27 [id number] RASHEED ELIAS PA-C CARDIOLOG Y [address] [place] [address] 06/21/2022 11:46:56 06/21/2022 14:15:04 Coronary arteriosclerosis 27081174 I25.10 The patient is doing well on current management . No new active problems identified . Chronic problems are all stable. Patient is to continue current regimen without change. All questions answered and regimen reviewed. Patient is to call for any change in status Myoview GXT pending Essential hypertension 69822943 I10 Blood pressure goals reviewed with the patient ( <140/90) encouraged regular exercise, healthy weight maintenanc e and adherence to low sodium diet (<2gm qd per AHA recommenda tions) Monitor BP's periodical ly at home. Tobacco de pendence syndrome 91153762 F17.200 smoking cessation discussed with the patient. She has attempted to stop in the past without success. Hypertensive disorder 38 387304 I10 Blood pressure goals reviewed with the patient ( <140/90) encouraged regular exercise, healthy weight maintenanc e and adherence to low sodium diet (<2gm qd per AHA recommenda tions) Monitor BP's periodical ly at home. Hyperlipidemia 43309751 E78.5 Labs reviewed and discussed with the patient. Lipid goals discussed with patient. (Total cholestero l less than 170, LDL less than 70. ) Continue heart healthy diet. Health Concerns Section Related Observation LastModified by Organization Detai ls LastModified Time None Recorded Concern Status LastModified by Organization Details LastModified Time None Recorded Advance Directives Directive None Recorded Payers Insurance Date Sequence Insurance Name Policy Number Policy Olguin Covered Member ID Olguin Member ID Guarantor Name 06/25/2022 1 [employer] [id number] Lenka Barker [id number] Lenka Barker 06/21/2022 1 [facility] (PPO) [id number] Lenka Barker [id number] Lenka C Markwell Notes Date Note Type Note Provider Name and Address Organization Details Recorded Time 05/01/2019 text/html zach 53-year-old white female chronic smoker with coronary artery disease and prior LAD stenting in 2009. She comes today for follow-up. She smokes one half pack of cigarettes per day. She is compliant with her medications. She denies chest pain palpitations dizziness syncope or shortness of breath. RASHEED ELIAS PA-C [address] [place], [address], [facility] 05/01/2019 10:52:02 05/12/2020 text/html zach 54-year-old white female chronic smoker with coronary artery disease NSTEMI and LAD stenting in 2009. She comes today for follow-up. She smokes one half pack of cigarettes per day. She is compliant with her medications. She denies chest pain palpitations dizziness syncope or shortness of breath. RASHEED ELIAS PA-C [address] [place], [address], [facility] 05/12/2020 10:13:12 05/11/2021 text/html zach 55-year-old white female chronic smoker with coronary artery disease NSTEMI and LAD stenting in 2009. She comes today for follow-up. She smokes one half pack of cigarettes per day. She is compliant with her medications. She denies chest pain palpitations dizziness syncope or shortness of breath[place], [address], [facility] 05/11/2021 12:19:48 06/21/2022 text/html Zach 56-year-old white female chronic smoker with CAD, NSTEMI and LAD PCI 2009. Comes today for follow-up. No complaints. Denies chest pain palpitations dizziness or syncope. Unfortunately continues to smoke half pack of cigarettes per day[place], [address], [facility] 06/21/2022 14:01:59 OBGyn Episode No OBEpisode recorded.
--- NOTE | 2024-12-08 11:57 | EXP.PAIN.SOA ---
[facility] Disclaimer: The information contained in this section may have been updated after the patient was seen, as this information can be updated by other users. Medical History Chronic eustachian tube dysfunction Congestion of left ear Nasal congestion Normal hysteroscopy Constipation Diabetes mellitus, type 2 Inflammation of right eustachian tube Hoarseness COCO (stress urinary incontinence, female) Menopausal symptoms Presence of intrauterine contraceptive device Decreased libido Heart attack Hyperlipidemia Hypertension Surgical History H/O heart artery stent Family History Mother Diabetes Hyperlipidemia Father Cancer Other Hypertension Social History Smoking Status: Current every day smoker tobacco type: cigarettes alcohol intake: never substance use type: denies use current occupational status: other Travel in the last 8 weeks?: None household members: family housing: house PM Subjective & Objective Subjective Subjective:: Patient is a pleasant 58-year-old female who presents today for follow-up of left L5-S1 transforaminal epidural on 11/24/2024. Today she rates her pain a 5 out of 10. She denies any new falls or injuries. She does state that this 1 has done much better than her last 1. Patient states that she has been able to increase her activity with overall decreased pain. Patient does state that it did take about 4 days to kick in but she was actually able to come down off of her pain medication to primarily once a day. She states that she will occasionally have a day that she has to take twice a day but that has really been very minimal and only in the last 2 weeks was 1 day. Patient denies any other changes. She does state that she is seeing her primary care later to see what the plan is regarding going back to work. Her Davis has been reviewed and is appropriate. Review of Systems: General: No recent weight changes, no fever, no sleep disturbances Respiratory: No cough, no shortness of air, no recurring pulmonary infections Cardiovascular/peripheral vascular: No chest pain, no palpitations, no edema, no shortness of breath Gastrointestinal: No new onset incontinence, normal bowel movements reported Genitourinary: No new onset incontinence Musculoskeletal: Low back pain Psychiatric: [Normal mood/affect] Neurological: [Denies weakness in extremities], [denies balance issues] Pain at rest (0-10 scale): 5 Objective Objective:: Physical Exam: General: Alert and oriented x3, no acute distress, pleasant and cooperative Lungs: Respirations even and unlabored, symmetrical chest expansion Eyes: PERRL Musculoskeletal: Flexion and extension of lumbar [spine] somewhat guarded secondary to pain, [antalgic gait noted] Neurological: Speech clear, no gross sensory deficit Has patient had previous pain injection?: Yes Percent improvement in pain since last injection: 50% Conservative treatment options previously tried: Home exercise plan Length of treatment: Longer than 12 weeks Meds Home Medications and Allergies Home Medications ?Medication ?Instructions ?Recorded ?Confirmed ?Type aspirin 81 mg tablet,delayed 81 mg PO DAILY Blood Thinner 02/01/22 11/24/24 History release metoprolol tartrate 25 mg tablet 25 mg PO BID bp 02/01/22 11/24/24 History simvastatin 40 mg tablet 40 mg PO HS Cholesterol 02/01/22 11/24/24 History lysine 500 mg tablet 500 mg PO DAILY Supplement 06/08/22 11/24/24 History B-complex with vitamin C 1 tab PO DAILY Supplement 02/20/23 11/24/24 History albuterol sulfate 90 mcg/actuation 2 inh inhalation QID PRN shortness 01/02/24 11/24/24 Rx aerosol inhaler of breath or wheezing #6.7 grams azelastine 137 mcg (0.1 %) nasal 2 spray intranasal BID #30 mL 01/21/24 11/24/24 Rx spray pioglitazone 15 mg tablet 15 mg PO DAILY #90 tabs 03/17/24 11/24/24 Rx famotidine 20 mg tablet See Rx Instructions .Route 03/24/24 11/24/24 Rx .COMPLEX #180 tabs omeprazole 20 mg capsule,delayed See Rx Instructions .Route 03/24/24 11/24/24 Rx release .COMPLEX #90 caps levocetirizine 5 mg tablet See Rx Instructions .Route 07/20/24 11/24/24 Rx .COMPLEX #90 tabs terbinafine HCl 250 mg tablet 250 mg PO DAILY 30 days #30 tabs 10/13/24 11/24/24 Rx ibuprofen 800 mg tablet 800 mg PO Q6H #60 tabs 10/20/24 11/24/24 Rx bupropion HCl 75 mg tablet 75 mg PO BID #60 tabs 10/21/24 11/24/24 Rx valsartan 160 1 tab PO BID 10/21/24 11/24/24 History mg-hydrochlorothiazide 12.5 mg tablet tizanidine 4 mg tablet (Zanaflex) 4 mg PO HS #14 tabs 10/28/24 11/24/24 Rx metformin 500 mg tablet,extended 1,000 mg (2 x 500 mg) PO BID 90 11/23/24 11/24/24 Rx release 24 hr days #360 tabs cyclobenzaprine 10 mg tablet See Rx Instructions .Route 12/02/24 Rx .COMPLEX #60 tabs New Prescriptions to Start Prescriptions: Allergies Allergy/AdvReac Type Severity Reaction Status Date / Time amoxicillin (From Amoxil) Allergy Swelling Verified 10/21/24 10:45 of the Eye Penicillins Allergy Swelling Verified 10/21/24 10:45 of the Eye Assessment and Plan *Assessment and plan (1) Lumbar radiculopathy: Status: Acute Category: Medical Code(s): M54.16 - Radiculopathy, lumbar region (2) Degenerative disc disease: Status: Acute Category: Medical Plan Patient has had significant improvement following her injection and does not require any additional injection therapy at this time. Patient will return to clinic in 6 weeks for reevaluation of symptoms and plan of care. Patient has been instructed to contact the clinic with any concerns before the next appointment. Dr. Peralta has reviewed this note and agrees with this plan of care. This note was dictated using voice recognition software and make contain errors or omissions. All injections are used with Lidocaine, Bupivacaine and dexamethasone. Occasionally urine drug screen is needed to verify patient's compliance with our office pain contract. This is ordered based off specific treatments related to chronic pain with the potential to abuse certain medications.
[2024-12-08 12:11] VITALS: BP 134/83; PULSE 115; RESP 18; O2SAT 95; BMI 29.2
== END 2024-12-08 23:59 | disposition home or self-care (01) ==
LOC: SC.PAIN 11:16
PROVIDERS: PCP Family Medicine; Visit Provider Nurse Practitioner Family
DX: M54.16 Radiculopathy, lumbar region (principal)
CPT/HCPCS: 99212; G0463

== ENCOUNTER 2025-01-20 14:28 | Outpatient (POV) | payer BC, SELFPAY ==
--- OUTSIDE RECORDS SUMMARY | 2025-01-20 14:30 | XMS_ITS | Data Portability ---
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 Imaging electrocar diogram 2020 021 [email or web address] [facility], [address] [place] [address] , [address], [place], [address], 1 12:20:13 electrocar diogram 2019 020 SANG Not available 0 10:20:15 electrocar diogram 2018 019 SANG Not available 9 11:32:05 Medication Orders lisinopril 20 mg-hydroch lorothiazi de 12.5 mg tablet 2021 [facility], [address] [place], [address], 14:01:55 metoprolol tartrate 25 mg tablet 2021 [facility], [address] [place], [address], 2 14:01:55 simvastati n 40 mg tablet 2021 [facility], [address] [place], [address], 2 14:01:55 metoprolol tartrate 25 mg tablet 2020 [facility] [address], [address], [place], [address], 12:19:55 lisinopril 20 mg-hydroch lorothiazi de 12.5 mg tablet 2020 [facility] [address], [address], [place], [address], 12:19:45 Nitrostat 0.4 mg sublingual tablet 2020 [facility], [address] [place], [address], 12:19:59 simvastati n 40 mg tablet 2020 [facility], [address], [place], [address], 1 12:19:49 metoprolol tartrate 25 mg tablet 2019 [facility] [address], [address], [place], [address], 0 10:13:14 lisinopril 20 mg-hydroch lorothiazi de 12.5 mg tablet 2019 020 [facility] [address], [address], [place], [address], 0 10:13:10 Nitrostat 0.4 mg sublingual tablet 2019 [facility] [address], [address], [place], [address], 0 10:13:17 simvastati n 40 mg tablet 2019 020 [facility] [address], [address], [place], [address], 0 10:13:20 Wellbutrin SR 150 mg tablet, 12 hr sustained- release [email or web address] [facility], [address], [place], [address], 0 09:44:23 metoprolol tartrate 25 mg tablet 2018 019 [facility] [address], [address], [place], [address], 9 10:45:58 lisinopril 20 mg-hydroch lorothiazi de 12.5 mg tablet 2018 019 [facility] [address], [address], [place], [address], 9 10:46:08 Nitrostat 0.4 mg sublingual tablet [address] [facility] [address], [address], [place], [address], 9 10:50:24 simvastati n 40 mg tablet [address] [facility] [address], [address], [place], [address], 9 10:46:11 Patient TargetsNo targets recorded. Patient Instructions Encounter Date Encounter Id Patient Instructions Last Modified By Organization Details Last Modified Time 05/01/2019 [id number] Quitting Tobacco : Care Instructions Not available [...] with EKG. Not available 05/01/2019 10:51:48 05/12/2020 [id number] Quitting Tobacco : Care Instructions Not available 05/12/2020 10:13:00 Angina: Care Instructions Not available 05/12/2020 10:13:00 no cardiac complaints. Continues to do well. PRESCRIPTIONS renewed electronically. Labs are pending. F/U in 1 year Not available 05/12/2020 10:12:57 05/11/2021 [id number] Quitting Tobacco : Care Instructions Not available 05/11/2021 12:19:36 Angina: Care Instructions Not available 05/11/2021 12:19:36 no cardiac complaints. Continues to do well. PRESCRIPTIONS renewed electronically. Labs are pending. F/U in 1 year Not available 05/11/2021 12:18:02 06/21/2022 [id number] Follow-up in 1 year Not available 06/21/2022 14:01:02 Reason for Referral None Reported. Results Created Date Observation Date Name Description Value Unit Range Abnormal Flag Note LastModifiedBy Organization Detail LastModifiedTime 05/12/2005/12/2020 CMP, serum or plasm a glucose 114 mg/dL 74-100 high Not Available [facility] [address] [place] [address], [address], 05/12/2020 13:00:29 05/12/20 20 05/12/2020 CMP, serum or plasm a blood urea nitrogen 9 mg/dL 6-20 normal Not Available [facility] [address] [place] [address], [address], 05/12/2020 13:00:29 05/12/20 20 05/12/2020 CMP, serum or plasm a creatinine 0.56 mg/dL 0.50-0 .95 normal Not Available [facility] [address] [place] [address], [address], 05/12/2020 13:00:29 05/12/2005/12/2020 CMP, serum or plasm a BUN/creatini ne ratio 16 (calc ) 10-20 normal Not Available [facility] [address] [place] [address], [address], 05/12/2020 13:00:29 05/12/20 20 05/12/2020 CMP, serum or plasm a sodium 137 mmol/ L 136-14 5 normal Not Available [facility] [address] [place] [address], [address], 05/12/2020 13:00:29 05/12/2005/12/2020 CMP, serum or plasm a potassium 3.7 mmol/ L 3.4-5. 0 normal Not Available [facility] [address] [place] [address], [address], 05/12/2020 13:00:29 05/12/2005/12/2020 CMP, serum or plasm a chloride 100 mmol/ L 98-107 normal Not Available [facility] [address] [place] [address], [address], 05/12/2020 13:00:29 05/12/20 20 05/12/2020 CMP, serum or plasm a carbon dioxide 25 mmol/ L 20-32 normal Not Available [facility] [address] [place] [address], [address], 05/12/2020 13:00:29 05/12/20 20 05/12/2020 CMP, serum or plasm a anion gap 12 (calc ) 7-25 normal Not Available [facility] [address] [place] [address], [address], 05/12/2020 13:00:29 05/12/2005/12/2020 CMP, serum or plasm a calcium 9.4 mg/dL 8.6-10 .2 normal Not Available [facility] [address] [place] [address], [address], 05/12/2020 13:00:29 05/12/20 20 05/12/2020 CMP, serum or plasm a total protein 7.1 g/dL 6.4-8. 3 normal Not Available [facility] [address] [place] [address], [address], 05/12/2020 13:00:29 05/12/20 20 05/12/2020 CMP, serum or plasm a albumin 4.3 g/dL 3.5-5. 2 normal Not Available [facility] [address] [place] [address], [address], 05/12/2020 13:00:29 05/12/2005/12/2020 CMP, serum or plasm a globulin 2.8 g/dL_ (calc ) 1.5-4. 5 normal Not Available [facility] [address] [place] [address], [address], 05/12/2020 13:00:29 05/12/2005/12/2020 CMP, serum or plasm a albumin/glob ulin ratio 1.5 (calc ) 1.1-2. 5 normal Not Available [facility] [address] [place] [address], [address], 05/12/2020 13:00:29 05/12/20 20 05/12/2020 CMP, serum or plasm a bilirubin, total 0.4 mg/dL 0.1-1. 2 normal Not Available [facility] [address] [place] [address], [address], 05/12/2020 13:00:29 05/12/20 20 05/12/2020 CMP, serum or plasm a alkaline phosphatase 83 U/L 35-105 normal Not Available [facility] [address] [place] [address], [address], 05/12/2020 13:00:29 05/12/20 20 05/12/2020 CMP, serum or plasm a AST 19 U/L 0-32 normal Not Available [facility] [address] [place] [address], [address], 05/12/2020 13:00:29 05/12/2005/12/2020 CMP, serum or plasm a ALT 24 U/L 0-33 normal Not Available [facility] [address] [place] [address], [address], 05/12/2020 13:00:29 05/12/20 20 05/12/2020 CMP, serum or plasm a GFR 122 >= 60 normal Not Available [facility] [address] [place] [address], [address], 05/12/2020 13:00:29 05/12/2005/12/2020 CMP, serum or plasm a GFR non- [...] month s or longe r. Not Available [facility] [address] [place] [address], [address], 05/12/2020 13:00:29 05/12/2005/12/2020 magne sium, QN, serum or plasm a magnesium 1.91 mg/dL 1.60-2 .60 normal Not Available [facility] [address] [place] [address], [address], 05/12/2020 13:00:31 05/12/2005/12/2020 lipid panel , serum HDL cholesterol 41 mg/dL 66-242 low Not Available [facility] [address] [place] [address], [address], 05/12/2020 13:00:32 05/12/2005/12/2020 lipid panel , serum triglyceride s 212 mg/dL 0-149 high TRIGL YCERI DE RANGE S LYNN L: < 150 BORDE RLINE HIGH: 150 - 199 HIGH: 200 - 499 VERY HIGH: > OR = 500 Not Available [facility] [address] [place] [address], [address], 05/12/2020 13:00:32 05/12/2005/12/2020 lipid panel , serum cholesterol 165 mg/dL 0-199 normal ISABEL STERO L (TOTA L) RANGE S MARY ALICE ABLE: < 200 BORDE RLINE : 200 - 239 HIGHE R RISK: > 239 Not Available [facility] [address] [place], [address], 05/12/2020 13:00:32 05/12/20 20 05/12/2020 lipid panel , serum LDL cholesterol 82 mg/dL _(catarina c) 0-99 normal LDL ISABEL STERO L RANGE S OPTIM AL: < 100 NEAR/ ABOVE OPTIM AL: 100 - 129 BORDE RLINE HIGH: 130 - 159 HIGH: 160 - 189 VERY HIGH: > OR = 190 Not Available [facility] [address] [place] [address], [address], 05/12/2020 13:00:32 05/12/2005/12/2020 TSH, serum or plasm a TSH 1.690 uIU/m L 0.290- 5.500 normal Not Available [facility] [address] [place] [address], [address], 05/12/2020 13:22:51 05/12/2005/12/2020 CBC w/ auto diff white blood cells 9.7 K/uL 3.8-10 .8 normal Not Available [facility] [address] [place] [address], [address], 05/12/2020 13:29:25 05/12/2005/12/2020 CBC w/ auto diff red blood cells 4.63 M/uL 3.80-5 .20 normal Not Available [facility] [address] [place] [address], [address], 05/12/2020 13:29:25 05/12/2005/12/2020 CBC w/ auto diff hemoglobin 15.0 g/dL 12.0-1 6.0 normal Not Available [facility] [address] [place] [address], [address], 05/12/2020 13:29:25 05/12/2005/12/2020 CBC w/ auto diff hematocrit 42.8 % 35.0-4 7.0 normal Not Available [facility] [address] [place] [address], [address], 05/12/2020 13:29:25 05/12/2005/12/2020 CBC w/ auto diff MCV 92 fL 80-100 normal Not Available [facility] [address] [place] [address], [address], 05/12/2020 13:29:25 05/12/20 20 05/12/2020 CBC w/ auto diff MCH 32 pg 26-35 normal Not Available [facility] [address] [place] [address], [address], 05/12/2020 13:29:25 05/12/20 20 05/12/2020 CBC w/ auto diff MCHC 35 g/dL 32-36 normal Not Available [facility] [address] [place] [address], [address], 05/12/2020 13:29:25 05/12/20 20 05/12/2020 CBC w/ auto diff RDW 12.9 % 11.0-1 5.0 normal Not Available [facility] [address] [place] [address], [address], 05/12/2020 13:29:25 05/12/20 20 05/12/2020 CBC w/ auto diff MPV 9.8 fL 6.2-10 .5 normal Not Available [facility] [address] [place] [address], [address], 05/12/2020 13:29:25 05/12/20 20 05/12/2020 CBC w/ auto diff platelet count 191 K/uL 130-40 0 normal Not Available [facility] [address] [place] [address], [address], 05/12/2020 13:29:25 05/12/20 20 05/12/2020 CBC w/ auto diff neutrophil,a bsolute 6.2 K/uL 1.6-8. 4 normal Not Available [facility] [address] [place] [address], [address], 05/12/2020 13:29:25 05/12/20 20 05/12/2020 CBC w/ auto diff lymphocyte,a bsolute 2.6 K/uL 0.4-5. 1 normal Not Available [facility] [address] [place] [address], [address], 05/12/2020 13:29:25 05/12/20 20 05/12/2020 CBC w/ auto diff monocyte,abs olute 0.6 K/uL 0.0-1. 2 normal Not Available [facility] [address] [place] [address], [address], 05/12/2020 13:29:25 05/12/20 20 05/12/2020 CBC w/ auto diff eosinophil,a bsolute 0.2 K/uL 0.0-0. 8 normal Not Available [facility] [address] [place] [address], [address], 05/12/2020 13:29:25 05/12/20 20 05/12/2020 CBC w/ auto diff basophil,abs olute 0.1 K/uL 0.0-0. 3 normal Not Available [facility] [address] [place] [address], [address], 05/12/2020 13:29:25 05/12/20 20 05/12/2020 CBC w/ auto diff % neutrophils 63.9 % 42.0-7 8.0 normal Not Available [facility] [address] [place] [address], [address], 05/12/2020 13:29:25 05/12/20 20 05/12/2020 CBC w/ auto diff % lymphocytes 27.2 % 11.0-4 7.0 normal Not Available [facility] [address] [place] [address], [address], 05/12/2020 13:29:25 05/12/20 20 05/12/2020 CBC w/ auto diff % monocytes 5.9 % 0.0-11 .0 normal Not Available [facility] [address] [place] [address], [address], 05/12/2020 13:29:25 05/12/20 20 05/12/2020 CBC w/ auto diff % eosinophils 2.3 % 0.0-7. 0 normal Not Available [facility] [address] [place] [address], [address], 05/12/2020 13:29:25 05/12/20 20 05/12/2020 CBC w/ auto diff % basophils 0.7 % 0.0-3. 0 normal Not Available [facility] [address] [place] [address], [address], 05/12/2020 13:29:25 05/12/20 20 05/12/2020 CBC w/ auto diff nucleated red cells 0.1 % 0.0-0. 9 normal Not Available [facility] [address] [place] [address], [address], 05/12/2020 13:29:25 05/12/20 20 05/12/2020 CBC w/ auto diff nucleated RBCs, absolute 0.01 K/uL not estab. normal Not Available [facility] [address] [place] [address], [address], 05/12/2020 13:29:25 05/05/20 19 05/01/2019 elect rocar diogr am No observ ation record ed. [email or web address] Not Available 2018 11:32:10 05/16/20 20 05/12/2020 elect rocar diogr am No observ ation record ed. [email or web address] Not Available 2019 10:20:19 05/11/20 elect rocar diogr am No observ ation record ed. [facility] [address] [facility], [place], [address], 05/11/2021 10:06:55 05/15/20 21 05/11/2021 elect rocar diogr am No observ ation record ed. BARCODE [facility] [address] [facility], [place], [address], 05/15/2021 09:14:07 Result Notes None recorded. Problems Name Problem SNOMED Code Status Onset Date Resolution Date Notes Provider Name and Address Organization Details Recorded Time Coronary arterios clerosis in telida artery 93527342253 07 Active 2015 From [employer];Pro vider: Lisa Kuhn; Status: Active Not Available [facility] 6 09:11:31 Hyperten sive disorder 69570276 Active 2015 From [employer];Pro vider: Lisa Kuhn; Status: Active Not Available [facility] 6 09:11:31 Hyperlip idemia 88103579 Active 2015 From [employer];Pro vider: Lisa Kuhn; Status: Active Not Available [facility] 6 09:11:31 History of coronary artery bypass grafting 752781397 Completed 201601/30/2017 RASHEED LE PA-C [address] [place] [address], [address] , [facility] 7 13:01:13 Tobacco dependen ce syndrome 48243934 Active 2016 RASHEED LE PA-C [address] [place] [address], [address] , [facility] 7 12:59:44 Problem Notes Documentation Provider Name and Address Organization Details Recorded Time Treadmill Nuclear Stress Zoe t (proc) : [place] [address] [facility] [id number], Nancy C (id #[id number], : 1965) [place] [address] [place] [address] Encounter Summary - Progress Note Date Printed: [...] received this fax in error, please visit [email or web address] to notify the sender and confirm that the information will be destroyed. If you do not have internet access, please call to notify the sender and confirm that the information will be destroyed. Thank you for your attention and cooperation. [ID:[id number]] Patient Lenka Barker (56yo, F) #[id number] 1965 Patient Demographics: Address [address] [place] [address] K[place]INA Ospina [address] Encounter Notes: Encounter Reason/DateNone recorded 06/21/2022 - 12:30PM - [facility] History of Present IllnessNone recorded Review of [...] Nuclear:STRESS TEST - NUCLEAR Referring Physician: KARISSA Madison Physician: [facility] Attending Physician Conclusion: 1. Stress [...] normal axis, cannot rule out old anterior IL. Stress - sinus tachycardia, no arrhythmias seen, [...] Gender. 5. St Treadmill Score of 6. MMarcello Tellez M.D., [facility] (06/21/22) Protocol: Fredrick Clinical Data: CAD [...] Source aspirin 81 mg tabletDaily, start started [facility].222 lisinopriL 20 mg-hydrochlorothiazide 12.5 mg tabletTAKE 1 TABLET BY MOUTH ONCE DAILY.06/21/22 prescribed RASHEED LE PA-C lysine 1,000 mg [id number]/06/16 entered [facility].264 metoprolol tartrate 25 mg tabletTAKE 1 TABLET BY MOUTH TWICE DAILY.06/21/22 prescribed RASHEED LE PA-C Nitrostat 0.4 mg sublingual tabletprn pain05/11/21 prescribed RASHEED LE PA-C simvastatin 40 mg tabletTAKE 1 TABLET BY MOUTH AT BEDTIME.06/21/22 prescribed RASHEED LE PA-C vitamin B [id number]/05/16 entered [facility].247 Family HistoryFamily History not reviewed (last reviewed 05/11/2021) Past Medical History HypertensionY Vaccine HistoryVaccines not reviewed (last reviewed 05/11/2021) Vaccine Type Date Amt. Route Site [facility] Lot # Mfr. Exp. Date VIS VIS Given Sampling Expert COVID-19 COVID-19, mRNA, LNP-S, PF, 30 mcg/0.3 mL dose ([employer]) 11/02/20 Pf[employer] COVID-19, mRNA, LNP-S, PF, 30 mcg/0.3 mL dose ([employer]) 10/12/20 [employer] Electronically Signed by: LAUREN TELLEZ MD Ирина francis [facility] 06/25/2022 16:30:08 Procedures Surgical History Date Name Laterality Status Provider Name and Address Organization Details Recorded Time 2 Stress Test - Nuclear completed LAUREN TELLEZ MD [address] [place], [address], [facility] 06/21/2022 19:50:19 1 EKG completed RASHEED LE PA-C [address] [place], [address], [facility] 05/11/2021 12:18:06 0 EKG completed RASHEED MIMI PA-C [address] [place], [address], [facility] 05/12/2020 10:11:32 9 EKG completed RASHEED SCHWARTZKYRA PA-C [address] [place], [address], [facility] 05/01/2019 10:50:52 8 EKG completed RASHEED SCHWARTZKYRA, PA-C [address] [place], [address], [facility] 03/21/2018 10:32:37 7 EKG completed RASHEED SCHWARTZKYRA PA-C [address] [place], [address], [facility] 01/30/2017 13:02:10 Stent Placement completed Radha Quinonez [facility] 05/12/2020 09:39:38 tooth extraction completed [facility] 05/12/2020 09:40:07 Imaging Results None recorded. Procedure Notes None recorded. Medical Equipment None Reported. Allergies Allergen ID Allergen Name Allergen Category Reaction Reaction Severity Criticality Documentation Date Start Date Code Code System Note Provider Name and Address Organization Details Recorded Time 052087 amoxicill in trihydrat e medicatio n other Not available Not available 06/01/20162009 30932 8 RxNorm React ion: EYE SWELL ING; Comme nt: Creat ed By: Rajiv wisdom;Cr eated Date: 2009 12:13 :06 PM; Not Available [facility] 6 09:06:17 364803 Product containin g penicilli n (product) medicatio n Not available Not available Not available 06/01/20162009 47402 8001 SNOMED Comme nt: Creat ed By: Rajiv wisdom;Cr eated Date: 2009 12:12 :53 PM; Not Available [facility] 6 09:47:42 Medications Name Sig Start [...] index (BMI) Body weight Heart rate Systolic And Diastolic Provider Name and Address Organization Details Last Updated DateTime 05/01/2019 162.56 cm 30.6 kg/m2 56325.44 g 75 /min 122/80 mm[Hg] Jeana Philip [facility] 05/01/2019 10:26:39 Date Recorded Body height Body mass index (BMI) Body weight Heart rate Oxygen saturation Oxygen saturation in Arterial blood by Pulse oximetry Systolic And Diastolic Provider Name and Address Organization Details Last Updated DateTime 1 162.56 cm 31.8 kg/m2 85111.5 9 g 72 /min 97 % 97 % 130/80 mm[Hg] Suleiman Parrish [facility] 1 10:15:50 Date Recorded Body height Body mass index (BMI) Body weight Heart rate Systolic And Diastolic Provider Name and Address Organization Details Last Updated DateTime 05/12/2020 162.56 cm 31.1 kg/m2 23759.22 g 63 /min 118/72 mm[Hg] Radha Quinonez [facility] 05/12/2020 09:48:47 Social History Question Answer Notes LastModified by [place] Details LastModified Time Tobacco Smoking Status Current Every Day Smoker La francis [facility] 01/30/2017 12:06:14 How Much Tobacco Do You Chew? None [email or web address] Information not available 05/12/2020 Which Illicit Or Recreational Drugs Have You Used? None Per Patient Information not available 05/12/2020 Live Alone Or With Others? With Others Information not available 01/30/2017 Marital Status Single Informatio n not available 01/30/2017 What Was The Date Of Your Most Recent Tobacco Screening? 05/11/2021 Information not available 05/11/2021 How Many Children Do You Have? 1 Information not available 01/30/2017 What Is Your Relationship Status? Single [email or web address] Information not available 05/11/2021 How Much Tobacco Do You Smoke? 0.5 PPD Information not available 01/30/2017 How Many Years Have You Smoked Tobacco? 40 Information not available 01/30/2017 Have You Recently Traveled Abroad? No [email or web address] Information not available 05/11/2021 Sex: Unknown Functional Status Question Answer Note LastModified by [place] Details LastModified Time What is your level of alcohol consumption? None Information not available 01/30/2017 Do you or have you ever used smokeless tobacco? 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 Never used electronic cigarettes [email or web address] Information not available 05/12/2020 Mental Status None recorded. Family History Nothing Reported. Medical History Condition Response Hypertension Y Gynecological HistoryNo gynecological history recorded. Obstetrics History GPAL:G 0 P 0 0 0 0 Immunizations Vaccine Type Date Status Note Provider Nam e and Address Organization Details Recorded Time COVID-19, mRNA, LNP-S, PF, 30 mcg/0.3 mL dose 10/12/2020 [facility] 10:06:07 COVID-19, mRNA, LNP-S, PF, 30 mcg/0.3 mL dose 11/02/2020 [facility] 10:06:19 Past Encounters Encounter ID Performer Location Encounter Start Date Encounter Closed Date Diagnosis/Indication Diagnosis SNOMED-CT Code Diagnosis ICD10 Code Diagnosis Note [id number] RASHEED LE PA-C CARDIOLOG Y [facility] CLOSED [address] [place] [address] 01/30/2017 11:30:38 01/30/2017 14:14:22 Coronary arteriosclerosis in telida artery 5188910471 107 I25.10 Hyperlipidemia 74587950 E78.5 Tobacco de pendence syndrome 37773902 F17.200 Hypertensive disorder 38 869705 I10 [id number] RASHEED LE PA-C CARDIOLOG Y [facility] CLOSED [address] [place] [address] 03/21/2018 09:37:44 03/21/2018 10:37:31 Coronary arteriosclerosis in telida artery [id number] 107 I25.10 Hyperlipidemia 45574166 E78.5 Tobacco de pendence syndrome [id number] F17.200 Hypertensive disorder 38 048220 I10 [id number] RASHEED LE PA-C CARDIOLOG Y [facility] CLOSED [address] [place] [address] 05/01/2019 10:05:41 05/01/2019 11:03:58 Tobacco dependence syndrome [id number] F17.200 Renewal of prescription [id number] Z76.0 Coronary arteriosclerosis in telida artery [id number] 107 I25.10 Hypertensive disorder 38 402839 I10 Hyperlipidemia 15868663 E78.5 [id number] RASHEED LE PA-C CARDIOLOG Y [address] [place] [id number] 05/12/2020 09:06:40 05/12/2020 10:32:35 Tobacco dependence syndrome 71137111 F17.200 Renewal of prescription [id number] Z76.0 Coronary arteriosclerosis in telida artery [id number] 107 I25.10 Hypertensive disorder 38 127709 I10 Hyperlipidemia 45346051 E78.5 [id number] RASHEED LE PA-C CARDIOLOG Y [address] [place] [id number] 05/11/2021 09:34:10 05/11/2021 12:20:13 Tobacco dependence syndrome 50464049 F17.200 smoking cessation discussed with the patient. She has attempted to stop in the past without success. Job was hospitaliz ed in. I've asked her to try to cut her smoking at least a half Renewal of prescription [id number] Z76.0 Coronary arteriosclerosis in telida artery [id number] 107 I25.10 Medication changes, as well as [...] any change in status Hypertensive disorder 38 490132 I10 Blood pressure goals reviewed with the patient ( <140/90) encouraged regular exercise, healthy weight maintenanc e and adherence to low sodium diet (<2gm qd per AHA recommenda tions) Monitor BP's periodical ly at home. Hyperlipidemia 14424380 E78.5 Labs reviewed and discussed with the patient. Lipid goals discussed with patient. (Total cholestero l less than 170, LDL less than 70. ) Continue heart healthy diet. [id number] LAUREN TELLEZ MD [facility] [address] [place] [address] 06/21/2022 11:45:39 06/22/2022 07:59:27 [id number] RASHEED LE PA-C CARDIOLOG Y [address] [place] [address] 06/21/2022 11:46:56 06/21/2022 14:15:04 Coronary arteriosclerosis 84040777 I25.10 The patient is doing well on current management . No new active problems identified . Chronic problems are all stable. Patient is to continue current regimen without change. All questions answered and regimen reviewed. Patient is to call for any change in status Myoview GXT pending Essential hypertension 89342556 I10 Blood pressure goals reviewed with the patient ( <140/90) encouraged regular exercise, healthy weight maintenanc e and adherence to low sodium diet (<2gm qd per AHA recommenda tions) Monitor BP's periodical ly at home. Tobacco de pendence syndrome 64323058 F17.200 smoking cessation discussed with the patient. She has attempted to stop in the past without success. Hypertensive disorder 38 358377 I10 Blood pressure goals reviewed with the patient ( <140/90) encouraged regular exercise, healthy weight maintenanc e and adherence to low sodium diet (<2gm qd per AHA recommenda tions) Monitor BP's periodical ly at home. Hyperlipidemia 41077526 E78.5 Labs reviewed and discussed with the [...] Olguin Member ID Guarantor Name 06/25/2022 1 [facility] ([facility]) [id number] Lenka Barker [id number] Lenka Barker 06/21/2022 1 [facility] ([facility]) [id number] Lenka Barker [id number] Lenka Barker Notes Date Note Type Note [...] dizziness syncope or shortness of breath. [address] [place], [address], [facility] 05/01/2019 10:52:02 05/12/2020 text/html zach 54-year-old white female chronic smoker with coronary artery disease NSTEMI and LAD stenting in 2009. She comes today for follow-up. She smokes one half pack of cigarettes per day. She is compliant with her medications. She denies chest pain palpitations dizziness syncope or shortness of breath. RASHEED LE PA-C [address] [place], [address], [facility] 05/12/2020 10:13:12 05/11/2021 text/html zach 55-year-old white female chronic smoker with coronary artery disease NSTEMI and LAD stenting in 2009. She comes today for follow-up. She smokes one half pack of cigarettes per day. She is compliant with her medications. She denies chest pain palpitations dizziness syncope or shortness of breath. RASHEED LE PA-C [address] [place], [address], [facility] 05/11/2021 12:19:48 06/21/2022 text/html Zach 56-year-old white female chronic smoker with CAD, NSTEMI and LAD PCI 2009. Comes today for follow-up. No complaints. Denies chest pain palpitations dizziness or syncope. Unfortunately continues to smoke half pack of cigarettes per day[place], [address], [facility] 06/21/2022 14:01:59 OBGyn Episode No OBEpisode recorded.
[2025-01-20 14:48] VITALS: BP 158/84; PULSE 90; RESP 18; O2SAT 96; BMI 29.0
--- NOTE | 2025-01-20 16:12 | EXP.PAIN.SOA ---
[facility] Disclaimer: The information contained in this section may have been updated after the patient was seen, as this information can be updated by other users. Medical History Post-nasal drip Tinnitus of both ears Chronic eustachian tube dysfunction Congestion of left ear Nasal congestion Normal hysteroscopy Constipation Diabetes mellitus, type 2 Inflammation of right eustachian tube Hoarseness COCO (stress urinary incontinence, female) Menopausal symptoms Presence of intrauterine contraceptive device Decreased libido Heart attack Hyperlipidemia Hypertension Surgical History H/O heart artery stent Family History Mother Diabetes Hyperlipidemia Father Cancer Other Hypertension Social History Smoking Status: Current every day smoker tobacco type: cigarettes alcohol intake: never substance use type: denies use current occupational status: other Travel in the last 8 weeks?: None household members: family housing: house PM Subjective & Objective Subjective Subjective:: Patient is a pleasant 59-year-old female who presents today for follow-up. Today she rates her pain a 6 out of 10. She denies any new trauma or injury. She states overall she is doing well. She states that she did end up going back to work on December 15 and has done pretty good overall. She states when she is up walking moving she really is not having the pain however when she goes to sit she does noticed increased issues. Patient had her last transforaminal epidural in November and did get improvement. She denies any other changes. Her Davis has been reviewed and is appropriate. Review of Systems: General: No recent weight changes, no fever, no sleep disturbances Respiratory: No cough, no shortness of air, no recurring pulmonary infections Cardiovascular/peripheral vascular: No chest pain, no palpitations, no edema, no shortness of breath Gastrointestinal: No new onset incontinence, normal bowel movements reported Genitourinary: No new onset incontinence Musculoskeletal: Low back pain Psychiatric: [Normal mood/affect] Neurological: [Denies weakness in extremities], [denies balance issues] Pain at rest (0-10 scale): 6 Objective Objective:: Physical Exam: General: Alert and oriented x3, no acute distress, pleasant and cooperative Lungs: Respirations even and unlabored, symmetrical chest expansion Eyes: PERRL Musculoskeletal: Flexion and extension of lumbar [spine] somewhat guarded secondary to pain, [antalgic gait noted] Neurological: Speech clear, no gross sensory deficit Has patient had previous pain injection?: No Conservative treatment options previously tried: Home exercise plan Length of treatment: Longer than 12 weeks Meds Home Medications and Allergies Home Medications ?Medication ?Instructions ?Recorded ?Confirmed ?Type aspirin 81 mg tablet,delayed 81 mg PO DAILY Blood Thinner 02/01/22 01/20/25 History release metoprolol tartrate 25 mg tablet 25 mg PO BID bp 02/01/22 01/20/25 History simvastatin 40 mg tablet 40 mg PO HS Cholesterol 02/01/22 01/20/25 History lysine 500 mg tablet 500 mg PO DAILY Supplement 06/08/22 01/20/25 History B-complex with vitamin C 1 tab PO DAILY Supplement 02/20/23 01/20/25 History albuterol sulfate 90 mcg/actuation 2 inh inhalation QID PRN shortness 01/02/24 01/20/25 Rx aerosol inhaler of breath or wheezing #6.7 grams levocetirizine 5 mg tablet See Rx Instructions .Route 07/20/24 01/20/25 Rx .COMPLEX #90 tabs ibuprofen 800 mg tablet 800 mg PO Q6H #60 tabs 10/20/24 01/20/25 Rx valsartan 160 1 tab PO BID 10/21/24 01/20/25 History mg-hydrochlorothiazide 12.5 mg tablet metformin 500 mg tablet,extended 1,000 mg (2 x 500 mg) PO BID 90 11/23/24 01/20/25 Rx release 24 hr days #360 tabs cyclobenzaprine 10 mg tablet See Rx Instructions .Route 12/02/24 01/20/25 Rx .COMPLEX #60 tabs pioglitazone 15 mg tablet 15 mg PO DAILY #90 tabs 12/10/24 01/20/25 Rx bupropion HCl 75 mg tablet 75 mg PO BID 90 days #180 tabs 12/28/24 01/20/25 Rx azelastine 137 mcg (0.1 %) nasal 2 spray intranasal BID #30 mL 01/11/25 01/20/25 Rx spray famotidine 20 mg tablet See Rx Instructions .Route 01/11/25 01/20/25 Rx .COMPLEX #90 tabs terbinafine HCl 250 mg tablet 250 mg PO DAILY 30 days #30 tabs 01/11/25 01/20/25 Rx omeprazole 20 mg capsule,delayed See Rx Instructions .Route 01/19/25 01/20/25 Rx release .COMPLEX #90 caps New Prescriptions to Start Prescriptions: Allergies Allergy/AdvReac Type Severity Reaction Status Date / Time amoxicillin (From Amoxil) Allergy Swelling Verified 01/11/25 11:03 of the Eye Penicillins Allergy Swelling Verified 01/11/25 11:03 of the Eye Assessment and Plan *Assessment and plan (1) Lumbar radiculopathy: Status: Acute Category: Medical Code(s): M54.16 - Radiculopathy, lumbar region (2) Degenerative disc disease: Status: Acute Category: Medical Plan Patient is still doing well and does not require additional injection therapy at this time. We will see her back in 1 month for reevaluation of symptoms and plan of care. Patient has been instructed to contact the clinic with any concerns before the next appointment. Dr. Peralta has reviewed this note and agrees with this plan of care. This note was dictated using voice recognition software and make contain errors or omissions. All injections are used with Lidocaine, Bupivacaine and dexamethasone. Occasionally urine drug screen is needed to verify patient's compliance with our office pain contract. This is ordered based off specific treatments related to chronic pain with the potential to abuse certain medications.
== END 2025-01-20 23:59 | disposition home or self-care (01) ==
LOC: SC.PAIN 14:29
PROVIDERS: PCP Family Medicine; Visit Provider Nurse Practitioner Family
DX: M54.16 Radiculopathy, lumbar region (principal)
CPT/HCPCS: 99212; G0463

== ENCOUNTER 2025-02-22 08:54 | Outpatient (POV) | payer BC, SELFPAY ==
[2025-02-22 09:03] VITALS: BP 180/96; PULSE 89; RESP 18; O2SAT 97; BMI 28.2
--- NOTE | 2025-02-22 09:10 | EXP.PAIN.SOA ---
[facility] Disclaimer: The information contained in this section may have been updated after the patient was seen, as this information can be updated by other users. Medical History Post-nasal drip Tinnitus of both ears Chronic eustachian tube dysfunction Congestion of left ear Nasal congestion Normal hysteroscopy Constipation Diabetes mellitus, type 2 Inflammation of right eustachian tube Hoarseness COCO (stress urinary incontinence, female) Menopausal symptoms Presence of intrauterine contraceptive device Decreased libido Heart attack Hyperlipidemia Hypertension Surgical History H/O heart artery stent Family History Mother Diabetes Hyperlipidemia Father Cancer Other Hypertension Social History Smoking Status: Current every day smoker tobacco type: cigarettes alcohol intake: never substance use type: denies use current occupational status: employed Travel in the last 8 weeks?: None household members: family housing: house PM Subjective & Objective Subjective Subjective:: Patient is a pleasant 59-year-old female who presents today for worsening left leg pins and needle sensation. She rates it a 9 out of 10. Patient does feel like the prior injection has officially worn off. Patient is stating that the pain is getting more more constant and that she does notice it on a regular basis. Patient states that the pain is affecting her ability perform activities of daily living such as cooking and cleaning. Patient does state that she really did get significant relief with her last injection and is still stating today about 75 to 80% relief and even states that she was able to go back to work with very minimal pain during the time that it was working well. Patient would like to see about getting scheduled for repeat injection. Her Davis has been reviewed and is appropriate. Review of Systems: General: No recent weight changes, no fever, no sleep disturbances Respiratory: No cough, no shortness of air, no recurring pulmonary infections Cardiovascular/peripheral vascular: No chest pain, no palpitations, no edema, no shortness of breath Gastrointestinal: No new onset incontinence, normal bowel movements reported Genitourinary: No new onset incontinence Musculoskeletal: Low back pain, left foot and ankle numbness tingling Psychiatric: [Normal mood/affect] Neurological: [Denies weakness in extremities], [denies balance issues] Pain at rest (0-10 scale): 9 Objective Objective:: Physical Exam: General: Alert and oriented x3, no acute distress, pleasant and cooperative Lungs: Respirations even and unlabored, symmetrical chest expansion Eyes: PERRL Musculoskeletal: Flexion and extension of lumbar [spine] somewhat guarded secondary to pain, [antalgic gait noted] positive left leg raise with decreased sensation to light touch and decreased reflexes Neurological: Speech clear, no gross sensory deficit Has patient had previous pain injection?: No Conservative treatment options previously tried: Home exercise plan Length of treatment: Longer than 12 weeks Meds Home Medications and Allergies Home Medications ?Medication ?Instructions ?Recorded ?Confirmed ?Type aspirin 81 mg tablet,delayed 81 mg PO DAILY Blood Thinner 02/01/22 01/20/25 History release metoprolol tartrate 25 mg tablet 25 mg PO BID bp 02/01/22 01/20/25 History simvastatin 40 mg tablet 40 mg PO HS Cholesterol 02/01/22 01/20/25 History lysine 500 mg tablet 500 mg PO DAILY Supplement 06/08/22 01/20/25 History B-complex with vitamin C 1 tab PO DAILY Supplement 02/20/23 01/20/25 History albuterol sulfate 90 mcg/actuation 2 inh inhalation QID PRN shortness 01/02/24 01/20/25 Rx aerosol inhaler of breath or wheezing #6.7 grams levocetirizine 5 mg tablet See Rx Instructions .Route 07/20/24 01/20/25 Rx .COMPLEX #90 tabs valsartan 160 1 tab PO BID 10/21/24 01/20/25 History mg-hydrochlorothiazide 12.5 mg tablet metformin 500 mg tablet,extended 1,000 mg (2 x 500 mg) PO BID 90 11/23/24 01/20/25 Rx release 24 hr days #360 tabs pioglitazone 15 mg tablet 15 mg PO DAILY #90 tabs 12/10/24 01/20/25 Rx azelastine 137 mcg (0.1 %) nasal 2 spray intranasal BID #30 mL 01/11/25 01/20/25 Rx spray famotidine 20 mg tablet See Rx Instructions .Route 01/11/25 01/20/25 Rx .COMPLEX #90 tabs terbinafine HCl 250 mg tablet 250 mg PO DAILY 30 days #30 tabs 01/11/25 01/20/25 Rx omeprazole 20 mg capsule,delayed See Rx Instructions .Route 01/19/25 01/20/25 Rx release .COMPLEX #90 caps bupropion HCl 75 mg tablet 75 mg PO BID 90 days #180 tabs 02/17/25 Rx cyclobenzaprine 10 mg tablet See Rx Instructions .Route 02/17/25 Rx .COMPLEX #60 tabs ibuprofen 800 mg tablet 800 mg PO Q6H #60 tabs 02/17/25 Rx New Prescriptions to Start Prescriptions: Allergies Allergy/AdvReac Type Severity Reaction Status Date / Time amoxicillin (From Amoxil) Allergy Swelling Verified 01/11/25 11:03 of the Eye Penicillins Allergy Swelling Verified 01/11/25 11:03 of the Eye Assessment and Plan *Assessment and plan (1) Lumbar radiculopathy: Status: Acute Category: Medical Code(s): M54.16 - Radiculopathy, lumbar region (2) Degenerative disc disease: Status: Acute Category: Medical Plan Patient is experiencing worsening pain in her low back with symptoms radiating down her entire left leg. Patient had limited range of motion of her lumbar spine along with a positive left leg raise and decreased sensation to light touch and decreased reflexes during today's exam. I have discussed with the patient that they may benefit from a transforaminal epidural steroid injection. Risk and benefits were discussed with the patient and she would like to proceed forward with this plan of care. Patient has tried and failed conservative therapy including oral medication, heat and ice, topicals, at home stretching exercise for longer than 12 weeks that was physician guided. Patient's last transforaminal injection was back in November that did provide 75 to 80% relief and has worked well up until the last week or so. Patient is not on any blood thinners. We will schedule the patient for a left transforaminal epidural steroid injection L4-L5 and L5-S1. Patient has been instructed to contact the clinic with any concerns before the next appointment. Dr. Peralta has reviewed this note and agrees with this plan of care. This note was dictated using voice recognition software and make contain errors or omissions.
== END 2025-02-22 23:59 | disposition home or self-care (01) ==
LOC: SC.PAIN 08:54
PROVIDERS: PCP Family Medicine; Visit Provider Nurse Practitioner Family
DX: M54.16 Radiculopathy, lumbar region (principal)
CPT/HCPCS: 99212; G0463

== ENCOUNTER 2025-03-17 10:22 | Outpatient (CLI) | payer BC, SELFPAY ==
--- NOTE | 2025-03-17 11:00 | MM_ITS ---
PROCEDURE INFORMATION: Exam: MG Bilateral Screening 3D Mammography Exam date and time: 03/17/2025 10:59 AM Age: 59 years old Clinical indication: Screening examination. TECHNIQUE: Imaging protocol: Bilateral Screening tomosynthesis and 2D mammography including computer-aided detection (CAD) when performed. COMPARISON: 1. MG MM DIG SCREENING MAMM BI W/CAD 02/27/2024 9:41 AM 2. MG MM DIG SCREENING MAMM BI W/CAD 01/03/2023 8:13 AM FINDINGS: MAMMOGRAPHY: Breast composition: There are scattered areas of fibroglandular density. Mass: None. Architectural distortion: None. Calcifications: No suspicious calcifications. Asymmetric density: None. Skin thickening: None. Axillary adenopathy: None. IMPRESSION: No mammographic evidence of malignancy. Annual screening is recommended unless otherwise clinically indicated. ASSESSMENT: BI-RADS Category 1: Negative.
== END 2025-03-17 23:59 | disposition home or self-care (01) ==
LOC: RAD 10:23
PROVIDERS: PCP Family Medicine; Visit Provider Family Medicine
DX: Z12.31 Encounter for screening mammogram for malignant neoplasm of breast (principal); R92.323 Mammographic fibroglandular density, bilateral breasts
CPT/HCPCS: 77063; 77067

== ENCOUNTER 2025-03-30 08:11 | Day surgery (SDC) | payer BC, SELFPAY ==
[2025-03-30 08:32] VITALS: BP 146/82; PULSE 83; RESP 18; O2SAT 100; BMI 27.7
[2025-03-30] MEDS: LIDOCAINE 1% 5ML PF VIAL 5 ML (08:47)
[2025-03-30] MEDS: DEXAMETHASONE 10MG/ML 1ML VIAL 10 MG (08:47)
[2025-03-30 08:48] VITALS: BP 144/84; PULSE 84; RESP 18; O2SAT 94
[2025-03-30 08:49] VITALS: BP 144/84; PULSE 86; RESP 18; O2SAT 94
[2025-03-30 08:55] VITALS: BP 115/88; PULSE 67; RESP 18; O2SAT 97
--- NOTE | 2025-03-30 09:12 | EXP.PAIN.PRO ---
Procedure Date: 03/30/25 Time: 08:50 Anesthesiologist:: Ty Cox CRNA Complications:: None Pre-procedure Diagnosis:: Degenerative disc lumbar spine multilevels. Lumbar radiculopathy. Lumbar disc bulge L4-5, L5-S1. Post-procedure Diagnosis:: Same. Indications for Procedure:: Patient is a very pleasant 59-year-old female who comes our clinic today for left L4-5 and L5-S1 transforaminal epidural steroid injection. Patient describes low lumbar left sided pain as well as left buttock and leg pain to the foot. She rates her pain 6/10. Procedure Details:: Details of the procedure explained to the patient. The patient was taken to procedure room placed in the prone position. The area over the lumbar spine was cleansed using chlorhexidine as a cleansing solution. Using fluoroscopy guidance markers were placed over the left border of the L4-5 and L5-S1 vertebral body. At each marker the skin and subcutaneous tissue was anesthetized using 1% lidocaine and a 25-gauge needle. At this time using fluoroscopy guidance 3 and half inch 22-gauge spinal needle was used to access the upper one third of the L4 for 5 and L5-S1 foramen on the left. Using fluoroscopy guidance in the lateral position needle position was confirmed using 0.5 mL of contrast dye. Good spread was noted in the epidural space at each level. After negative aspiration 2 mL of 1% lidocaine and 10 mg of dexamethasone was injected at each level. Patient tolerated procedure without difficulty. There are no complications. Plan and Disposition:: Patient was discharged without incident.
== END 2025-03-30 08:55 | disposition home or self-care (01) ==
PROVIDERS: PCP Family Medicine; Visit Provider Nurse Anesthetist, Certified Registered
DX: M51.16 Intervertebral disc disorders with radiculopathy, lumbar region (principal); E78.5 Hyperlipidemia, unspecified; E11.9 Type 2 diabetes mellitus without complications; I10 Essential (primary) hypertension; F17.210 Nicotine dependence, cigarettes, uncomplicated; I25.2 Old myocardial infarction; Z97.5 Presence of (intrauterine) contraceptive device; Z88.0 Allergy status to penicillin; Z79.84 Long term (current) use of oral hypoglycemic drugs; Z79.899 Other long term (current) drug therapy
CPT/HCPCS: 64483; 64484; J1100; J2003

== ENCOUNTER 2025-04-28 09:05 | Outpatient (CLI) | payer BC, SELFPAY ==
--- NOTE | 2025-04-28 10:15 | CT_ITS ---
FINAL REPORT CLINICAL HISTORY: lung cancer screening current smoker 1/2ppd x45 years FINDINGS: CT CHEST LOW DOSE SCREENING HISTORY: Screening exam for lung cancer. DOSE: CTDI vol: 2.90 mGy, DLP: 106.29 mGy*cm TECHNIQUE: Axial CT without IV contrast administration using low dose protocol. This study was performed with techniques to keep radiation doses as low as reasonably achievable, (ALARA). Individualized dose reduction techniques using automated exposure control or adjustment of mA and/or kV according to the patient's size were employed. No acute lung disease is present. No pulmonary lesions are seen suspicious for neoplasm. No pleural or pericardial effusion is seen. No adenopathy or mass lesion is present. There is coronary artery calcification. IMPRESSION: No evidence of lung cancer LUNG RADS CATEGORY 1 RECOMMENDATION: 12 month LDCT follow up Reviewed, Interpreted and Dictated by Antoni Bowers MD Transcribed by Tiarra Madison Authenticated and [facility]
== END 2025-04-28 23:59 | disposition home or self-care (01) ==
LOC: RAD 09:05
PROVIDERS: PCP Family Medicine; Visit Provider Family Medicine
DX: Z12.2 Encounter for screening for malignant neoplasm of respiratory organs (principal); F17.210 Nicotine dependence, cigarettes, uncomplicated; I25.10 Atherosclerotic heart disease of native coronary artery without angina pectoris
CPT/HCPCS: 71271